=== PATIENT | male | born 1985 | race Caucasian/White ===

== ENCOUNTER → 2019-08-09 14:28 | Outpatient (CLI) | payer OTHER, SELFPAY | PROVIDERS: PCP Internal Medicine Adolescent Medicine; Visit Provider Nurse Practitioner Family | DX: R42 Dizziness and giddiness (principal); R00.2 Palpitations | CPT/HCPCS: 93225; 93226 ==

== ENCOUNTER → 2019-09-14 10:44 | Outpatient (CLI) | payer OTHER, SELFPAY ==
--- NOTE | 2019-09-14 10:55 | CA_ITS ---
APPROVED REPORT EXAM: Comprehensive 2D, Doppler, and color-flow Echocardiogram Cardiology Clinical Consultant: Ellie Rasmussen, RT(R) Ht: 5 ft 6 in Wt: 180lbs BSA: 1.91 BP: 158/89 mmHg Indications: CP, Smoker, fatigue, syncope, dizziness, ordered as a bubble study to rule out PFO Echo Enhancing Agent Indication: Rule Out Septal Defect Agent(s) / Amount(s) Used: Agitated Saline 15 cc 2D Dimensions LVOT 2.02 cm (M/F) 1.5-2.5 M-Mode Dimensions RVDd 2.38 cm (0.9-2.6) LVDd 4.59 cm (3.5-5.7) LVDs 3.29 cm (3.5-5.7) IVSd 1.01 cm (0.6-1.1) PWd 0.77 cm (0.6-1.1) EF (Teich) 54.80% FS 28.30% EDV (Teich) 96.80 mL ESV (Teich) 43.80 mL LV Diastology E/A Ratio 1.65 Mitral Valve MV A Velocity 45.00 (40-130 cm/s) Left Ventricle Left atrium is normal size, left ventricle is normal size, there is no concentric left ventricular hypertrophy, visually estimated ejection fraction 55% with no regional wall motion abnormality. Diastolic parameters are within normal range. Right Ventricle Right atrium and right ventricular normal size and contractility. Atria Intra-atrial septum is intact, there is no flow across into septum, agitated saline contrast reveals identify intracardiac shunt. Aortic Valve Aortic valve is grossly normal, there is no aortic stenosis or aortic insufficiency. Mitral Valve Mitral valve is grossly normal, there is trace mitral regurgitation. Tricuspid Valve Tricuspid valve is grossly normal, there is trace tricuspid regurgitation. Pulmonic Valve Pulmonic valve is poorly visualized. Great Vessels Aortic root is normal size. Pericardium No significant pericardial effusion noted. Conclusion 1. Normal left ventricular size, preserved left ventricular systolic function, visually estimated ejection fraction 55% with no regional wall motion abnormality, diastolic parameters are within normal range. 2. Trace mitral and tricuspid regurgitation 3. Agitated saline contrast study fails to identify intracardiac shunting. 4. No significant pericardial effusion noted. Electronically signed by : Ezra Silva, 09/15/2019 15:12:08
== END ==
PROVIDERS: PCP Internal Medicine Adolescent Medicine; Visit Provider Nurse Practitioner Family
DX: R42 Dizziness and giddiness (principal); R00.2 Palpitations
CPT/HCPCS: 93306

== ENCOUNTER 2019-09-30 09:34 | Emergency (ER) | payer OTHER, SELFPAY ==
--- NOTE | 2019-09-30 09:33 | ECG_ITS ---
APPROVED REPORT Exam: Resting ECG HR:94 bpm ECG Measurements Heart Rate 94 AXES VA 138 P 70 QRSd 90 QRS 58 QT 332 T 63 QTc 415 <Conclusion> Normal sinus rhythm Incomplete RBBB Possible Left atrial enlargement Borderline ECG Electronically signed by : Marquez Wright, 10/04/2019 08:52:35
[2019-09-30 09:35] VITALS: BP 162/42; PULSE 93; RESP 18; O2SAT 97; BMI 27.3
--- NOTE | 2019-09-30 09:39 | XR_ITS ---
PROCEDURE: XR CHEST 2V CLINICAL HISTORY: chest pain COMPARISON: CHW CT CHEST W/ CONTRAST from 02/16/2014 CXR1VP XR chest portable from 04/09/2018 CXR2V XR chest 2V from 07/02/2018 XR CHEST PORTABLE from 08/08/2019 FINDINGS: The cardiomediastinal silhouette and pulmonary vascularity are within normal limits. The lungs are clear without infiltrates, suspicious nodules, or pleural effusions. No acute bony abnormalities. IMPRESSION: No acute findings. Dictated by: Dr. Dominick Love MD 09/30/2019 10:[address] Dominick Love MD in [place] 09/30/2019 10:06
[2019-09-30 09:40] VITALS: BP 144/75; PULSE 90; RESP 18; O2SAT 96
--- NOTE | 2019-09-30 09:44 | PC.NURSE ---
PT RETURNED FROM RAD
[2019-09-30 09:49] LABS: Basophils # 0.1 K/mm3 (0-0.2); Eosinophils # 0.3 K/mm3 (0.0-0.4); Lymphocytes # 1.6 K/mm3 (0.7-4.5); Monocytes # 0.6 K/mm3 (0.1-1.0); Red Cell Distribution Width 12.4 % (11.5-17.5)
[2019-09-30 09:52] LABS: Anion Gap 8.7 mEq/L (5-15); Blood Urea Nitrogen 11 mg/dl (9-20); Calcium 9.9 mg/dl (8.4-10.2); Carbon Dioxide 30 mmol/L (22.0-30.0); Chloride 103 mmol/L (98-107); Creatinine Clearance Estimated 152 mL/min (50-200); Estimated Glomerular Filt Rate 111 ml/min (>60); GFR (African American) 135 ML/MIN (>60); Glucose 119 mg/dl (74-100); Potassium 3.7 mmoL/L (3.5-5.1); Sodium 138 mmol/L (136-145)
[2019-09-30 09:54] LABS: Basophils % 0.8 % (0.1-2.0); Hematocrit 52.5 % (42.0-52.0); Lymphocytes % 18.9 % (10-50); Mean Corpuscular HGB Conc 34.3 g/dL (31.8-35.4); Mean Corpuscular Hemoglobin 33.4 pg (27.0-31.2); Mean Corpuscular Volume 97.3 fl (80-94); Mean Platelet Volume 7.8 fl (7.4-10.4); Monocytes % 7.2 % (1.7-9.3); Neutrophils # 5.7 K/mm3 (1.8-7.8); Neutrophils % 69.2 % (37.0-80.0); Platelet Count 254 K/mm3 (142-424); Red Blood Count 5.39 M/mm3 (4.60-6.20); White Blood Count 8.3 K/mm3 (4.8-10.8)
[2019-09-30 10:06] LABS: Troponin I < 0.01 ng/ml (0.00-0.034)
[2019-09-30 10:20] VITALS: BP 127/74; PULSE 61; RESP 18; O2SAT 97
--- NOTE | 2019-09-30 10:32 | HMH.EDCP ---
ED Disposition Clinical Impression: Costalchondritis Disposition: Home Health Service Condition on Discharge: Good Instructions: DI for Atypical Chest Pain Prescriptions: Losartan Potassium 50 mg PO DAILY 30 Days #30 tab Transmission Status: Pending to [facility] # Nabumetone 750 mg PO BID 10 Days #20 tab Transmission Status: Pending to [facility] # Referrals: Provider,Referral, [Primary Care Provider] - - Critical Care Critical Care Time: No Attestation: On 09/30/19, the high probability of a clinically significant, sudden or life threatening deterioration of the following system(s) required my full and direct attention, intervention and personal management. The time I documented below is in addition to time spent performing reported procedures but includes the following listed in this critical care notation. Medical Decision Making - Medical Records Medical records reviewed: Yes: I reviewed the patient's medical records. - Sony Inquiry Pt receiving controlled substance: No Vital Signs: 09/30/19 09:35 09/30/19 09:40 09/30/19 10:20 Pulse Rate [Radial] 93 H 90 61 Respiratory Rate 18 18 18 Blood Pressure [Right Arm] 162/42 H 144/75 H 127/74 Blood Pressure Mean [Right Arm] 82 98 91 Blood Pressure Source [Right Arm] Automatic Cuff Automatic Cuff Automatic Cuff Blood Pressure Position [Right Arm] Sitting Sitting 02 Sat by Pulse Oximetry 97 96 97 Oxygen Delivery Method Room Air Room Air - Lab Data Lab results reviewed: Yes: I reviewed the patient's lab results. Lab Results 09/30/19 09:35: WBC 8.3, RBC 5.39, Hgb 18.0, Hct 52.5 H, MCV 97.3 H, MCH 33.4 H, MCHC 34.3, RDW 12.4, Plt Count 254, MPV 7.8, Neut % (Auto) 69.2, Lymph % (Auto) 18.9, [place] % (Auto) 7.2, Eos % (Auto) 4.0, Baso % (Auto) 0.8, Neut # (Auto) 5.7, Lymph # (Auto) 1.6, [place] # (Auto) 0.6, Eos # (Auto) 0.3, Baso # (Auto) 0.1 09/30/19 09:35: Sodium 138, Potassium 3.7, Chloride 103, Carbon Dioxide 30, Anion Gap 8.7, BUN 11, Creatinine 0.80, Estimated Creat Clear 152, Estimated GFR 111, Est GFR ( Amer) 135, Glucose 119 H, Calcium 9.9, Troponin I < 0.01 Result diagrams: 09/30/19 09:35 09/30/19 09:35 Orders (Tests/Meds): ORDERS Category Date Time Status Troponin I Q3H Lab 09/30/19 12:45 Ordered Troponin I Q3H Lab 09/30/19 15:45 Ordered - Radiology Data #1 Image(s): Chest Image Reviewed: Yes I have reviewed radiologist's interpretation Preliminary Findings: Normal/NAD - ECG Data Tracing #1 I reviewed this ECG and interpreted as documented below: Normal Sinus Rhythm: Yes Chest Pain HPI - General Chief Complaint: Chest Pain Stated Complaint: chest pain Time Seen by Provider: 09/30/19 10:32 Mode of Arrival: Ambulatory Source of Information: Patient Limitations: No Limitations Description of Symptoms (Recalled from ER Triage Doc. by RN): complaint of chest pain that starts in his left shoulder and radiates to the middle of his chest that started last night. - History of Present Illness MD complaint: chest pain Onset (ago): hour(s) Duration: intermittent Activity at onset: during rest Pain location: substernal Severity: moderate Severity scale (1-10): 4 Quality: sharp Pain radiation: LUE Relieving factors: nothing Exacerbating factors: nothing Associated symptoms: nausea Treatments prior to or on arrival for Cardiac Chest Pain: none - Related Data Home Medications Medication Instructions Recorded Confirmed Citalopram Hydrobromide [Celexa 40 mg PO DAILY 07/02/18 05/20/19 40mg Tablet] Previous Rx's Medication Instructions Recorded Losartan Potassium 50 mg PO DAILY 30 Days #30 tab 09/30/19 Nabumetone 750 mg PO BID 10 Days #20 tab 09/30/19 Allergies Allergy/AdvReac Type Severity Reaction Status Date / Time codeine [CODEINE] Allergy Unknown Verified 07/02/18 19:58 Penicillins [PENICILLINS] Allergy Unknown Verified 07/02/18 19:58 H
[2019-09-30 10:46] VITALS: BP 141/83; PULSE 94; RESP 20; O2SAT 98
[2019-09-30 10:58] VITALS: BP 129/76; PULSE 79; RESP 18; TEMP 36.8; O2SAT 98
== END 2019-09-30 10:58 | disposition home health service (06) ==
PROVIDERS: Emergency Provider Family Medicine; PCP Internal Medicine Adolescent Medicine
DX: M94.0 Chondrocostal junction syndrome [Tietze] (principal); F17.210 Nicotine dependence, cigarettes, uncomplicated
CPT/HCPCS: 71046; 80048; 84484; 85025; 93005; 99284

== ENCOUNTER 2020-04-11 09:36 | Emergency (ER) | payer OTHER, SELFPAY ==
[2020-04-11 09:50] VITALS: BP 150/82; PULSE 98; RESP 18; TEMP 36.8; O2SAT 99; BMI 29.0
--- NOTE | 2020-04-11 10:06 | HMH.EDUTC ---
[facility] [place] Disposition Clinical Impression: Nausea Disposition: Home, Self-Care Condition on Discharge: Good Instructions: DI for Nausea -- Adult, Ondansetron, Dicyclomine Additional Instructions: ? Avoid fruit juices, as these do not replace minerals and can actually increase diarrhea. ? Children and adults can use sports drinks to replenish electrolytes. Younger children and infants should use products formulated for children, like oral rehydration solutions. ? Eat food in small amounts and let your stomach recover. ? Get lots of rest. You may feel tired or weak. ? No greasy or fried foods for the next 24-48 hours BRAT diet Bananas Rice Apples and [place] ? Make sure to drink plenty of liquids ? Return if needed ? Straight to ER if any life threatening symptoms ? Zofran as prescribed ? You was given an outpatient order for diarrhea panel, please collect specimen and bring back to outpatient lab then call back to the [facility] or follow up with family doctor for results ? Follow up with family doctor in the next 48-72 hours if no improvement or any worsening of symptoms You was tested for today for COVID19 your test result should be back in the next 24-48 hours, you may call to the [facility] tomorrow to see if your test results are back however could take up to 48 hours before results are back [phone] [facility] hours are 9am-9pm You was given a handout with instructions for Self Quarantine and Self isolation for while you wait on test results and what to do if they are positive If you are positive the Health Dept will be contacting you also Prescriptions: Dicyclomine HCl [Bentyl 10mg capsule] 10 mg PO TID PRN #15 cap PRN Reason: Cramping Transmission Status: Pending to [facility] # Ondansetron [Zofran 4mg ODT] 4 mg PO TIDP PRN #9 tab PRN Reason: Nausea Transmission Status: Pending to [facility] # Referrals: Janak Emmanuel MD [Primary Care Provider] - As needed Forms: Work/School Release Medical Decision Making - Sony Inquiry Pt receiving controlled substance: No Sony was queried for this patient: No Vital Signs: 04/11/20 09:50 Temperature 98.2 F Temperature Source Oral Pulse Rate [Right Brachial] 98 H Respiratory Rate 18 Blood Pressure [Right Arm] 150/82 H Blood Pressure Mean [Right Arm] 104 Blood Pressure Source [Right Arm] Automatic Cuff Blood Pressure Position [Right Arm] Sitting 02 Sat by Pulse Oximetry 99 Oxygen Delivery Method Room Air Orders (Tests/Meds): ED MEDICATIONS Discontinued Medications Generic Name Dose Route Start Last Admin Trade Name Candelario PRN Reason Stop Dose Admin Dicyclomine HCl 10 mg 04/11/20 10:09 04/11/20 10:24 Dicyclomine 10mg Capsule PO 04/11/20 10:10 10 mg ONCE ONE Administration Ondansetron HCl 4 mg 04/11/20 10:09 04/11/20 10:27 Ondansetron 4mg Odt SL 04/11/20 10:10 4 mg ONCE ONE Administration Medical Decision Narrative: Patient states that he no longer takes Citalopram Patient state that after medication he is feeling much better [facility] [place] HPI - General Stated complaint: No energy Time Seen by Provider: 04/11/20 10:06 Mode of Arrival: Ambulatory Source of Information: Patient Limitations: No Limitations Description of Symptoms (Recalled from Triage Doc. 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
[2020-04-11 10:40] VITALS: BP 150/82; PULSE 98; RESP 18; TEMP 36.8; O2SAT 99
[2020-04-12 09:44] LABS: Covid-19 Nasal PCR Sendout Lex NOT DETECTED
== END 2020-04-11 10:45 | disposition home or self-care (01) ==
PROVIDERS: Emergency Provider Nurse Practitioner; PCP Internal Medicine Adolescent Medicine
DX: Z20.828 Contact with and (suspected) exposure to other viral communicable diseases (principal); R11.0 Nausea; F17.210 Nicotine dependence, cigarettes, uncomplicated
CPT/HCPCS: 99201; U0004

== ENCOUNTER 2020-04-29 12:12 | Emergency (ER) | payer OTHER, SELFPAY ==
[2020-04-29 12:21] VITALS: BP 136/78; PULSE 72; RESP 18; O2SAT 99; BMI 27.4
--- NOTE | 2020-04-29 13:30 | HMH.EDUTC ---
[facility] [place] Disposition Clinical Impression: Laceration of left index finger Qualifiers: Encounter type: initial encounter Damage to nail status: without damage Foreign body presence: without foreign body Qualified Code(s): S61.211A - Laceration without foreign body of left index finger without damage to nail, initial encounter Disposition: Home, Self-Care Condition on Discharge: Good Instructions: How to Care for a Laceration After Repair, DI for Laceration Repair -- Simple Additional Instructions: Keep the wound clean and dry. Don't be submerging it in water to wash dishes or any other activities. Keep a dressing on it if you are going to be getting it dirty. Watch the for signs of infection, such as redness, swelling, drainage, fever. etc. Take tylenol or ibuprofen for pain. Follow up with your regular doctor. Return in 7 to 10 days to have the sutures removed. GO TO THE ER FOR ANY WORSENING SYMPTOMS OR CONCERNS. Prescriptions: cephALEXin [Keflex 500mg Cap] 500 mg PO Q6H 7 Days #28 cap Transmission Status: Pending to [facility] #[id number] Referrals: PCP,No [Primary Care Provider] - Forms: Work/School Release Time of Disposition: 13:36 Medical Decision Making - Medical Records Medical records reviewed: No: I reviewed the patient's medical records. - Sony Inquiry Pt receiving controlled substance: No Vital Signs: 04/29/20 12:21 Pulse Rate [Radial] 72 Respiratory Rate 18 Blood Pressure [Right Arm] 136/78 Blood Pressure Mean [Right Arm] 97 Blood Pressure Source [Right Arm] Automatic Cuff Blood Pressure Position [Right Arm] Sitting 02 Sat by Pulse Oximetry 99 Oxygen Delivery Method Room Air Orders (Tests/Meds): ED MEDICATIONS Discontinued Medications Generic Name Dose Route Start Last Admin Trade Name Freq PRN Reason Stop Dose Admin Tetanus/Reduced Diphtheria/Acell Pertussis 0.5 ml 04/29/20 12:27 04/29/20 12:51 Tet/Diphth/Pert-Adult 0.5ml Syringe IM 04/29/20 12:28 0.5 ml .ONCE ONE Administration [facility] [place] HPI - General Stated complaint: lt hand lac AO 04/29/20 Time Seen by Provider: 04/29/20 13:30 Mode of Arrival: Ambulatory Source of Information: Patient Limitations: No Limitations Description of Symptoms (Recalled from Triage Doc. by RN): left index finger lac HEENT Symptoms (Recalled from RN notes): No Resp Symptoms (Recalled from RN notes): No Skin Symptoms (Recalled from RN notes): Yes MS Symptoms (Recalled from RN notes): No Functional Status (Recalled from RN notes): wnl - History of Present Illness Provider Complaint: He state that he was cleaning his microwave when the glass plate inside it broke and and he slipped and cut the tip of his left index finger. 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 His tetanus immunization is not up to date. - Related Data Previous Rx's Medication Instructions Recorded Dicyclomine HCl [Bentyl 10mg 10 mg PO TID PRN #15 cap 04/11/20 capsule] Ondansetron [Zofran 4mg ODT] 4 mg PO TIDP PRN #9 tab 04/11/20 cephALEXin [Keflex 500mg Cap] 500 mg PO Q6H 7 Days #28 cap 04/29/20 Allergies Allergy/AdvReac Type Severity Reaction Status Date / Time codeine [CODEINE] Allergy Unknown Verified 07/02/18 19:58 Penicillins [PENICILLINS] Allergy Unknown Verified 07/02/18 19:58 - Worker's Comp Is this a Worker's Comp case?: No [facility] History - Hepatitis A Screen Drug use history?: No High risk sexual behaviors?: No History of sexually transmitted infection?: No Currently employed?: No Childcare worker?: No Do you have indoor plumbing?: Yes Do you have electricity?: Yes Attestation statement:: This patient has been screened for Hepatitis A risk factors. I have reviewed the patient's past medical history: Yes Medical History: Reports:: Cancer Denies:: Diabetes Mellitus Type 1, Diabetes Mellitus Type 2 - Social History Smoking Status: Current every day smoker Tobacco Type: cigarettes # Pa
[2020-04-29 13:41] VITALS: BP 136/78; PULSE 72; RESP 18; TEMP 36.7; O2SAT 99
== END 2020-04-29 13:42 | disposition home or self-care (01) ==
PROVIDERS: Emergency Provider Nurse Practitioner Family
DX: S61.211A Laceration without foreign body of left index finger without damage to nail, initial encounter (principal); Z23 Encounter for immunization; F17.210 Nicotine dependence, cigarettes, uncomplicated; W25.XXXA Contact with sharp glass, initial encounter; Y92.010 Kitchen of single-family (private) house as the place of occurrence of the external cause
CPT/HCPCS: 12001; 90471; 90715; 99201

== ENCOUNTER 2020-05-08 15:51 | Emergency (ER) | payer OTHER, SELFPAY ==
[2020-05-08 16:10] VITALS: BP 113/76; PULSE 81; RESP 19; TEMP 36.8; O2SAT 99; BMI 26.9
[2020-05-08 16:14] VITALS: BP 113/76; PULSE 81; RESP 19; TEMP 36.8; O2SAT 99
== END 2020-05-08 16:15 | disposition home or self-care (01) ==
PROVIDERS: Emergency Provider Nurse Practitioner Family; PCP Internal Medicine Adolescent Medicine
DX: S61.211D Laceration without foreign body of left index finger without damage to nail, subsequent encounter (principal)

== ENCOUNTER 2020-05-10 10:45 | Emergency (ER) | payer OTHER, SELFPAY ==
[2020-05-10 10:46] VITALS: BP 147/96; PULSE 100; RESP 16; TEMP 36.6; O2SAT 97; BMI 29.0
--- NOTE | 2020-05-10 10:55 | XR_ITS ---
PROCEDURE: XR CHEST 2V Referring Doctor: Vargas Richardson Patient Age:34Y CLINICAL HISTORY: fall/soa Syncopal episode with fall patient caught self did not hit chest or ribs. COMPARISON: CT [facility] CT CHEST W/ CONTRAST from 02/16/2014 CR CXR2V XR chest 2V from 07/02/2018 CR XR CHEST PORTABLE from 08/08/2019 CR XR CHEST 2V from 09/30/2019 FINDINGS: PA and lateral chest performed and compared to 09/30/2019 Nothing definitely acute. Lungs well expanded and clear. The cardiomediastinal silhouette and pulmonary vascularity are within normal limits. The lungs are clear without infiltrates, suspicious nodules, or pleural effusions. No acute bony abnormalities. Chest wall unremarkable IMPRESSION: . stable chest; nothing the definitely acute Dictated by: Moustapha Ang MD 05/10/2020 12:44 Moustapha Ang MD in [place] 05/10/2020 12:44
--- NOTE | 2020-05-10 11:01 | ECG_ITS ---
APPROVED REPORT Exam: Resting ECG HR:84 bpm ECG Measurements Heart Rate 84 AXES NM 142 P 50 QRSd 86 QRS 84 QT 342 T 8 QTc 404 Conclusion Normal sinus rhythm Normal ECG Electronically signed by : Janak Emmanuel, 05/10/2020 19:20:40
--- NOTE | 2020-05-10 11:13 | HMH.EDFALL ---
ED Disposition Clinical Impression: Fall Qualifiers: Encounter type: initial encounter Qualified Code(s): W19.XXXA - Unspecified fall, initial encounter Disposition: Home, Self-Care Condition on Discharge: Fair Instructions: How to Prevent Falls Additional Instructions: Glad to let you know that we have checked your labs and chest x-ray as well as EKG and no acute findings are noted please follow-up as needed Referrals: Janak Emmanuel MD [Primary Care Provider] - Forms: Work/School Release Time of Disposition: 11:57 - Critical Care Critical Care Time: No Attestation: On 05/10/20, the high probability of a clinically significant, sudden or life threatening deterioration of the following system(s) required my full and direct attention, intervention and personal management. The time I documented below is in addition to time spent performing reported procedures but includes the following listed in this critical care notation. Medical Decision Making - Medical Records Medical records reviewed: Yes: I reviewed the patient's medical records. MR Comment: 34 year old male here with his mother; states he was at work when he passed out. States he knows someone caught him and helped him to the floor. Unsure how long he was out for. Denies any injuries at this time. States he did not hit his head. States he has felt soa for the past few days. He has had a recent negative covid test. Labs and they show no acute changes his vital signs are stable chest x-ray has been reviewed and it also shows no acute changes patient is being discharged home with reassurance; he requested to be off for today and will give him that - Sony Inquiry Pt receiving controlled substance: No Vital Signs: 05/10/20 10:46 05/10/20 11:17 05/10/20 11:40 Temperature 97.8 F Temperature Source Oral Pulse Rate [Left Radial] 100 H 84 84 Respiratory Rate 16 18 Blood Pressure [Right Arm] 147/96 H 162/84 H 150/75 H Blood Pressure Mean [Right Arm] 113 110 100 Blood Pressure Source [Right Arm] Automatic Cuff Automatic Cuff Automatic Cuff Blood Pressure Position [Right Arm] Sitting Sitting Sitting 02 Sat by Pulse Oximetry 97 97 99 Oxygen Delivery Method Room Air Room Air - Lab Data Lab results reviewed: Yes: I reviewed the patient's lab results. Lab Results 05/10/20 11:05: Sodium 138, Potassium 3.8, Chloride 101, Carbon Dioxide 29, Anion Gap 11.8, BUN 14, Creatinine 1.00, Estimated Creat Clear 121, Estimated GFR 86, Est GFR ( Amer) 104, Glucose 120 H, Calcium 9.4 Result diagrams: 05/10/20 11:05 Orders (Tests/Meds): ED MEDICATIONS Generic Name Dose Route Start Last Admin Trade Name Freq PRN Reason Stop Dose Admin Sodium Chloride 1,000 mls @ 999 mls/hr 05/10/20 11:00 05/10/20 11:09 Sod Chlor 0.9% 1000ml Bag IV 05/10/20 12:00 999 mls/hr .Q1H1M DOROTHY Administration ORDERS Category Date Time Status XR chest 2V Stat Exams 05/10/20 10:55 Taken Complete Blood Count Auto Diff Stat Lab 05/10/20 11:05 Received - Radiology Data #1 Image(s): Chest Image Reviewed: Yes I reviewed the patient's radiology image Preliminary Findings: Normal/NAD Fall HPI - General Chief Complaint: Fall Stated Complaint: weakness, passed out, soa Time Seen by Provider: 05/10/20 11:10 Mode of Arrival: Ambulatory Source of Information: Patient, Parent(s) Limitations: No Limitations Description of Symptoms (Recalled from ER Triage Doc. by RN): pt states he was at work when he passed out. States he knows someone caught him and helped him to the floor. Unsure how long he was out for. Denies any injuries at this time. States he has felt soa for the past few days. - History of Present Illness HPI Narrative: 34 year old male here with his mother; states he was at work when he passed out. States he knows someone caught him and helped him to the floor. Unsure how long he was out for. Denies any injuries at this time.
[2020-05-10 11:15] LABS: Basophils % 0.6 % (0.1-2.0); Eosinophils # 0.2 K/mm3 (0.0-0.4); Eosinophils % 2.8 % (0.1-12.0); Hematocrit 54.2 % (42.0-52.0); Lymphocytes # 1.3 K/mm3 (0.7-4.5); Lymphocytes % 18.2 % (10-50); Mean Corpuscular HGB Conc 33.9 g/dL (31.8-35.4); Mean Corpuscular Hemoglobin 32.7 pg (27.0-31.2); Mean Corpuscular Volume 96.6 fl (80-94); Mean Platelet Volume 7.8 fl (7.4-10.4); Monocytes # 0.4 K/mm3 (0.1-1.0); Monocytes % 5.4 % (1.7-9.3); Neutrophils # 5.3 K/mm3 (1.8-7.8); Platelet Count 231 K/mm3 (142-424); Red Blood Count 5.61 M/mm3 (4.60-6.20); Red Cell Distribution Width 12.9 % (11.5-17.5); White Blood Count 7.3 K/mm3 (4.8-10.8)
[2020-05-10 11:17] VITALS: BP 162/84; PULSE 84; O2SAT 97
--- NOTE | 2020-05-10 11:30 | PC.NURSE ---
Pt returned from rad
[2020-05-10 11:32] LABS: Anion Gap 11.8 mEq/L (5-15); Blood Urea Nitrogen 14 mg/dl (9-20); Calcium 9.4 mg/dl (8.4-10.2); Carbon Dioxide 29 mmol/L (22.0-30.0); Chloride 101 mmol/L (98-107); Creatinine Clearance Estimated 121 mL/min (50-200); Estimated Glomerular Filt Rate 86 ml/min (>60); GFR (African American) 104 ML/MIN (>60); Glucose 120 mg/dl (74-100); Potassium 3.8 mmoL/L (3.5-5.1); Sodium 138 mmol/L (136-145)
[2020-05-10 11:40] VITALS: BP 150/75; PULSE 84; RESP 18; O2SAT 99
[2020-05-10 12:01] VITALS: BP 176/82; PULSE 84; RESP 16; O2SAT 98
[2020-05-10 12:02] VITALS: BP 168/70; PULSE 84; RESP 16; TEMP 37; O2SAT 98
[2020-05-10 12:05] LABS: Hemoglobin 18.3 g/dL (14.1-18.0)
== END 2020-05-10 12:06 | disposition home or self-care (01) ==
PROVIDERS: Emergency Provider Emergency Medicine; PCP Internal Medicine Adolescent Medicine
DX: R55 Syncope and collapse (principal); R53.1 Weakness; F17.210 Nicotine dependence, cigarettes, uncomplicated; Z88.0 Allergy status to penicillin; Z88.5 Allergy status to narcotic agent
CPT/HCPCS: 71046; 80048; 85025; 93005; 99283

== ENCOUNTER 2020-05-12 23:20 | Emergency (ER) | payer OTHER, SELFPAY ==
[2020-05-12 23:18] VITALS: BP 152/93; PULSE 92; RESP 12; TEMP 36.8; O2SAT 96; BMI 26.6
--- NOTE | 2020-05-12 23:24 | HMH.EDGENADL ---
ED Disposition Clinical Impression: Anxiety reaction Disposition: Home, Self-Care Condition on Discharge: Good Additional Instructions: You were seen on an emergency basis. It is very important that you follow up with your primary care provider and/or specialist as we discussed within 2 days. All labs and imaging were obtained and interpreted here to rule out life threatening emergencies, but your final results should be reviewed by your primary doctor at your follow up appointment. Please return to the emergency department if any of your symptoms worsen, or if they do not improve as we discussed. Referrals: PCP,No [Primary Care Provider] - Janak Emmanuel MD [Staff Physician] - - Critical Care Critical Care Time: No Attestation: On 05/12/20, the high probability of a clinically significant, sudden or life threatening deterioration of the following system(s) required my full and direct attention, intervention and personal management. The time I documented below is in addition to time spent performing reported procedures but includes the following listed in this critical care notation. Medical Decision Making - Medical Records Medical records reviewed: Yes: I reviewed the patient's medical records. - Sony Inquiry Pt receiving controlled substance: No Vital Signs: 05/12/20 23:18 Temperature 98.2 F Temperature Source Oral Pulse Rate [Right Brachial] 92 H Respiratory Rate 12 Blood Pressure [RIGHT] 152/93 H Blood Pressure Mean [RIGHT] 112 Blood Pressure Source [RIGHT] Automatic Cuff Blood Pressure Position [RIGHT] Sitting 02 Sat by Pulse Oximetry 96 Oxygen Delivery Method Room Air Orders (Tests/Meds): ED MEDICATIONS Discontinued Medications Generic Name Dose Route Start Last Admin Trade Name Freq PRN Reason Stop Dose Admin Lorazepam 1 mg 05/12/20 23:25 05/13/20 00:16 Lorazepam 1mg Tablet PO 05/12/20 23:26 1 mg ONCE ONE Administration Medical Decision Narrative: 34-year-old male with a history of anxiety presenting with an acute anxiety reaction. No SI or HI. Nontoxic, afebrile, hemodynamically stable. PERC negative. No chest pain. Asymptomatic after 1 mg of oral Ativan. Requesting to go home. No further work-up indicated. General Adult HPI - General Chief complaint: Dizziness Stated complaint: DIZZINESS Time Seen by Provider: 05/12/20 23:24 - History of Present Illness HPI narrative: This is a 34-year-old male with a history of anxiety noncompliant with citalopram presenting with a 1 day history of what he describes to be anxiety and feelings of stress. No fever, chills, nausea, vomiting, cough, shortness of breath, chest pain. No suicidal ideation or homicidal ideation. Patient seen here recently for similar symptoms and was told to resume escitalopram but patient remains noncompliant. - Related Data Previous Rx's Medication Instructions Recorded Dicyclomine HCl [Bentyl 10mg 10 mg PO TID PRN #15 cap 04/11/20 capsule] Ondansetron [Zofran 4mg ODT] 4 mg PO TIDP PRN #9 tab 04/11/20 cephALEXin [Keflex 500mg Cap] 500 mg PO Q6H 7 Days #28 cap 04/29/20 Allergies Allergy/AdvReac Type Severity Reaction Status Date / Time codeine [CODEINE] Allergy Unknown Verified 07/02/18 19:58 Penicillins [PENICILLINS] Allergy Unknown Verified 07/02/18 19:58 [facility] History - Hepatitis A Screen Attestation statement:: This patient has been screened for Hepatitis A risk factors. I have reviewed the patient's past medical history: Yes Medical History: Reports:: Cancer Denies:: Diabetes Mellitus Type 1, Diabetes Mellitus Type 2 - Social History Smoking Status: Current every day smoker Tobacco Type: cigarettes # Packs/Day (cigarettes): 1 Alcohol Intake: never Occupational Status: employed ROS Obtained: Yes All systems reviewed & no additional complaints Physical Exam General: well developed, well hydrated, no acute distress Head: Normocephalic, atrauma
[2020-05-13 00:47] VITALS: BP 143/93; PULSE 78; RESP 20; TEMP 36.6; O2SAT 97
== END 2020-05-13 00:48 | disposition home or self-care (01) ==
PROVIDERS: Emergency Provider Physician Assistant
DX: F41.1 Generalized anxiety disorder (principal); F17.210 Nicotine dependence, cigarettes, uncomplicated; Z88.0 Allergy status to penicillin; Z88.5 Allergy status to narcotic agent
CPT/HCPCS: 99281

== ENCOUNTER 2020-08-19 16:13 | Emergency (ER) | payer OTHER, SELFPAY ==
[2020-08-19 16:11] VITALS: BP 140/88; PULSE 102; RESP 16; TEMP 36.9; O2SAT 96; BMI 25.8
[2020-08-19 16:15] VITALS: BP 139/86; PULSE 89; RESP 20; O2SAT 98
--- NOTE | 2020-08-19 16:15 | ECG_ITS ---
APPROVED REPORT Exam: Resting ECG HR:91 bpm ECG Measurements Heart Rate 91 AXES MA 146 P 53 QRSd 84 QRS 16 QT 336 T 43 QTc 413 Conclusion Normal sinus rhythm Possible Left atrial enlargement Borderline ECG Electronically signed by : Janak Emmanuel, 08/20/2020 06:34:17
--- NOTE | 2020-08-19 16:15 | XR_ITS ---
PROCEDURE: XR CHEST PORTABLE CLINICAL HISTORY: ? SYNCOPAL EPISODE COMPARISON: CT CHW CT CHEST W/ CONTRAST from 02/16/2014 CR XR CHEST PORTABLE from 08/08/2019 CR XR CHEST 2V from 09/30/2019 CR XR CHEST 2V from 05/10/2020 FINDINGS: The cardiomediastinal silhouette and pulmonary vascularity are within normal limits. The lungs are clear without infiltrates, suspicious nodules, or pleural effusions. No acute bony abnormalities. IMPRESSION: No acute findings. Dictated by: Macario Lui MD 08/20/2020 05:44 Macario Lui MD in [place] 08/20/2020 05:44
[2020-08-19 16:17] VITALS: BP 140/88; BP 150/70; PULSE 102; PULSE 104
[2020-08-19 16:26] LABS: Basophils # 0.1 K/mm3 (0-0.2); Basophils % 0.4 % (0.1-2.0); Eosinophils # 0.2 K/mm3 (0.0-0.4); Eosinophils % 1.5 % (0.1-12.0); Hematocrit 53.5 % (42.0-52.0); Lymphocytes # 1.1 K/mm3 (0.7-4.5); Mean Corpuscular HGB Conc 33.7 g/dL (31.8-35.4); Mean Corpuscular Volume 94.9 fl (80-94); Monocytes # 0.5 K/mm3 (0.1-1.0); Monocytes % 3.5 % (1.7-9.3); Neutrophils # 12.2 K/mm3 (1.8-7.8); Neutrophils % 86.7 % (37.0-80.0); Platelet Count 300 K/mm3 (142-424); Red Blood Count 5.63 M/mm3 (4.60-6.20); Red Cell Distribution Width 12.7 % (11.5-17.5); White Blood Count 14.1 K/mm3 (4.8-10.8)
--- NOTE | 2020-08-19 16:26 | HMH.EDGENADL ---
ED Disposition Clinical Impression: Syncope Qualifiers: Syncope type: unspecified Qualified Code(s): R55 - Syncope and collapse Disposition: Home, Self-Care Condition on Discharge: Good Referrals: PCP,No [Non-Staff] - Time of Disposition: 18:46 - Critical Care Critical Care Time: No Attestation: On 08/19/20, the high probability of a clinically significant, sudden or life threatening deterioration of the following system(s) required my full and direct attention, intervention and personal management. The time I documented below is in addition to time spent performing reported procedures but includes the following listed in this critical care notation. Medical Decision Making - Medical Records Medical records reviewed: Yes: I reviewed the patient's medical records. - Sony Inquiry Pt receiving controlled substance: No Vital Signs: 08/19/20 16:11 08/19/20 16:15 08/19/20 16:17 Temperature 98.5 F Temperature Source Oral Pulse Rate 89 Pulse Rate [Orthostatic Lying] 102 H Pulse Rate [Orthostatic Standing] 104 H Pulse Rate [Radial] 102 H Respiratory Rate 16 20 Blood Pressure 139/86 Blood Pressure [Orthostatic Lying] 150/70 H Blood Pressure [Orthostatic Standing] 140/88 Blood Pressure [Right Arm] 140/88 Blood Pressure Mean [Right Arm] 105 Blood Pressure Position [Right Arm] Sitting 02 Sat by Pulse Oximetry 96 98 Oxygen Delivery Method Room Air 08/19/20 17:00 Temperature Temperature Source Pulse Rate 94 H Pulse Rate [Orthostatic Lying] Pulse Rate [Orthostatic Standing] Pulse Rate [Radial] Respiratory Rate 18 Blood Pressure 130/84 Blood Pressure [Orthostatic Lying] Blood Pressure [Orthostatic Standing] Blood Pressure [Right Arm] Blood Pressure Mean [Right Arm] Blood Pressure Position [Right Arm] 02 Sat by Pulse Oximetry 97 Oxygen Delivery Method - Lab Data Lab results reviewed: Yes: I reviewed the patient's lab results. Lab Results 08/19/20 16:00: WBC 14.1 H, RBC 5.63, Hgb 18.0, Hct 53.5 H, MCV 94.9 H, MCH 32.0 H, MCHC 33.7, RDW 12.7, Plt Count 300, MPV 9.0, Neut % (Auto) 86.7 H, Lymph % (Auto) 8.0 L, [place] % (Auto) 3.5, Eos % (Auto) 1.5, Baso % (Auto) 0.4, Neut # (Auto) 12.2 H, Lymph # (Auto) 1.1, [place] # (Auto) 0.5, Eos # (Auto) 0.2, Baso # (Auto) 0.1, Total Counted 100, Neutrophils % (Manual) 76, Lymphocytes % (Manual) 17, Monocytes % (Manual) 4, Eosinophils % (Manual) 3, Platelet Estimate Normal, RBC Morphology Normal 08/19/20 16:00: Sodium 140, Potassium 4.2, Chloride 104, Carbon Dioxide 28, Anion Gap 12.2, BUN 15, Creatinine 1.00, Estimated Creat Clear 108, Estimated GFR 86, Est GFR ( Amer) 104, Glucose 111 H, Calcium 9.7, Total Bilirubin 0.7, AST 22, ALT 15, Alkaline Phosphatase 94, Troponin I < 0.01, Total Protein 7.8, Albumin 5.1 H, Globulin 2.7, Albumin/Globulin Ratio 1.9 H 08/19/20 16:41: Urine Color Yellow, Urine Appearance Clear, Urine pH 7.0, Ur Specific [place] 1.020, Urine Protein Negative, Urine Glucose (UA) Negative, Urine Ketones Negative, Urine Blood Negative, Urine Nitrate Negative, Urine Bilirubin Negative, Urine Urobilinogen 0.2, Ur Leukocyte Esterase Negative, Urine RBC None, Urine WBC None, Ur Squamous Epith Cells None, Urine Bacteria None 08/19/20 16:41: Urine Opiates Screen Negative, Urine Methadone Screen Negative, Ur Barbituates Screen Negative, Ur Phencyclidine Scrn Negative, Ur Amphetamines Screen Negative, U Benzodiazepines Scrn Negative, Urine Cocaine Screen Negative, U Marijuana (THC) Screen Negative Result diagrams: 08/19/20 16:00 08/19/20 16:00 Orders (Tests/Meds): ED MEDICATIONS Generic Name Dose Route Start Last Admin Trade Name Freq PRN Reason Stop Dose Admin Sodium Chloride 1,000 mls @ 999 mls/hr 08/19/20 16:45 08/19/20 17:20 Sod Chlor 0.9% 1000ml Bag IV 08/19/20 17:45 999 mls/hr .Q1H1M DOROTHY Administration ORDERS Category Date Time Status CT head/brain wo con Stat Cat Scan 08/19/20 16:27 Taken
--- NOTE | 2020-08-19 16:27 | CT_ITS ---
PROCEDURE: CT HEAD/BRAIN WO CON CLINICAL INDICATION: near-syncope COMPARISON: No exams were available for comparison TECHNIQUE: Axial images obtained. All CT scans at the facility use one or more dose reduction, viz: automated exposure control, ma/kV adjustment per patient size (including targeted exams where dose is matched to indication, i.e. head), or iterative reconstruction technique. FINDINGS: No midline shift, mass effect, intracranial hemorrhage, hydrocephalus, or extra-axial fluid collection is evident. The calvarium has an unremarkable appearance. No mastoid effusion. Opacified right maxillary sinus with an air-fluid level. Mild mucosal thickening of ethmoid sinuses. IMPRESSION: No acute intracranial findings. Right maxillary sinus disease Dictated by: Macario Lui MD 08/20/2020 06:14 Macario Lui MD in [facility] 08/20/2020 06:14
[2020-08-19 16:30] LABS: Chloride 104 mmol/L (98-107); MANUAL DIFFERENTIAL MANUAL DIFFERENTIAL (MANUAL DIFF); Potassium 4.2 mmoL/L (3.5-5.1); Sodium 140 mmol/L (136-145)
[2020-08-19 16:33] LABS: Alanine Aminotransferase 15 U/L (12-78); Albumin Level 5.1 g/dl (3.5-5.0); Albumin/Globulin Ratio 1.9 (1.1-1.8); Alkaline Phosphatase 94 U/L (38-126); Anion Gap 12.2 mEq/L (5-15); Aspartate Amino Transferase 22 U/L (17-59); Bilirubin,Total 0.7 mg/dl (0.2-1.3); Blood Urea Nitrogen 15 mg/dl (9-20); Carbon Dioxide 28 mmol/L (22.0-30.0); Creatinine Clearance Estimated 108 mL/min (50-200); Estimated Glomerular Filt Rate 86 ml/min (>60); GFR (African American) 104 ML/MIN (>60); Globulin 2.7 g/dL (1.3-3.2); Total Protein,Serum 7.8 g/dl (6.3-8.2)
[2020-08-19 16:34] LABS: Calcium 9.7 mg/dl (8.4-10.2); Glucose 111 mg/dl (74-100)
[2020-08-19 16:40] LABS: Eosinophils % 3 % (0-3); Lymphocytes % 17 % (10-50); Monocytes % 4 % (2-9); Neutrophils % 76 % (42-76); Platelet Estimate Normal; RBC Morphology Normal; Total Cells Counted 100
[2020-08-19 16:51] LABS: Microscopic, Urine URINE MICROSCOPIC (MICROSCOPIC)
[2020-08-19 16:52] LABS: Appearance,Urine CLEAR (Clear); Bilirubin,Urine Negative (Negative); Blood, Urine Negative (Negative); Color,Urine YELLOW (Yellow); Glucose,Urine (UA) Negative (Negative); Ketones,Urine Negative (Negative); Leukocyte Esterase,Urine Negative (Negative); Nitrate,Urine Negative (Negative); Protein,Urine Negative (Negative); Urobilinogen,Urine 0.2 EU/dl (0.2)
[2020-08-19 16:55] LABS: Troponin I < 0.01 ng/ml (0.00-0.034)
[2020-08-19 17:00] VITALS: BP 130/84; PULSE 94; RESP 18; O2SAT 97
[2020-08-19 17:03] LABS: Barbiturates Screen,Urine Negative ng/ml (<200)
[2020-08-19 17:04] LABS: Benzodiazepines Screen,Urine Negative ng/ml (<200)
[2020-08-19 17:05] LABS: Amphetamine/Metha Screen,Urine Negative ng/ml (<1000); Cannabinoid Screen,Urine Negative ng/ml (<50)
[2020-08-19 17:06] LABS: Cocaine Screen,Urine Negative ng/ml (<300)
[2020-08-19 17:07] LABS: Methadone Screen,Urine Negative ng/ml (<300); Opiate Screen,Urine Negative ng/ml (<300)
[2020-08-19 17:08] LABS: Phencyclidine Screen,Urine Negative ng/ml (<25)
[2020-08-19 18:54] VITALS: BP 122/65; PULSE 78; RESP 18; TEMP 36.6; O2SAT 98
== END 2020-08-19 18:55 | disposition home or self-care (01) ==
PROVIDERS: Emergency Provider Family Medicine; PCP Internal Medicine Adolescent Medicine
DX: R55 Syncope and collapse (principal); F17.210 Nicotine dependence, cigarettes, uncomplicated; Z88.0 Allergy status to penicillin
CPT/HCPCS: 70450; 71045; 80053; 80305; 81001; 84484; 85007; 85025; 93005; 99283

== ENCOUNTER 2020-10-17 22:12 | Emergency (ER) | payer OTHER, SELFPAY ==
--- NOTE | 2020-10-17 22:10 | ECG_ITS ---
APPROVED REPORT Exam: Resting ECG HR:77 bpm ECG Measurements Heart Rate 77 AXES AL 144 P 63 QRSd 86 QRS 52 QT 350 T 63 QTc 396 Conclusion Normal sinus rhythm Normal ECG Electronically signed by : Janak Emmanuel, 10/20/2020 11:01:36
[2020-10-17 22:13] VITALS: BP 148/86; PULSE 84; RESP 19; TEMP 36.8; O2SAT 98; BMI 29.0
[2020-10-17 22:24] VITALS: BMI 29.0
--- NOTE | 2020-10-17 22:24 | XR_ITS ---
PROCEDURE INFORMATION: Exam: XR Chest Exam date and time: 10/17/2020 10:24 PM Age: 35 years old Clinical indication: Chest pressure; Patient HX: Chest pain; Additional info: Cp TECHNIQUE: Imaging protocol: XR of the chest. Views: 1 view. Total images: 1 COMPARISON: CR XR CHEST PORTABLE 08/19/2020 4:22 PM FINDINGS: Lungs: Unremarkable. No consolidation. Pleural spaces: Unremarkable. No pleural effusion. No pneumothorax. Heart/Mediastinum: Unremarkable. No cardiomegaly. Bones/joints: Unremarkable. IMPRESSION: No acute findings.
[2020-10-17 22:30] VITALS: BP 128/71; PULSE 89; RESP 22; O2SAT 96
[2020-10-17 22:33] LABS: Basophils # 0.1 K/mm3 (0-0.2); Basophils % 0.6 % (0.1-2.0); Chloride 105 mmol/L (98-107); Eosinophils # 0.3 K/mm3 (0.0-0.4); Eosinophils % 2.8 % (0.1-12.0); Hematocrit 52.4 % (42.0-52.0); Hemoglobin 17.6 g/dL (14.1-18.0); Lymphocytes # 2.3 K/mm3 (0.7-4.5); Lymphocytes % 23.9 % (10-50); Mean Corpuscular HGB Conc 33.5 g/dL (31.8-35.4); Mean Corpuscular Volume 95.4 fl (80-94); Mean Platelet Volume 7.9 fl (7.4-10.4); Monocytes # 0.5 K/mm3 (0.1-1.0); Monocytes % 5.5 % (1.7-9.3); Neutrophils # 6.4 K/mm3 (1.8-7.8); Neutrophils % 67.3 % (37.0-80.0); Platelet Count 277 K/mm3 (142-424); Potassium 4.2 mmoL/L (3.5-5.1); Red Blood Count 5.49 M/mm3 (4.60-6.20); Red Cell Distribution Width 12.8 % (11.5-17.5); Sodium 139 mmol/L (136-145); White Blood Count 9.4 K/mm3 (4.8-10.8)
[2020-10-17 22:35] LABS: Blood Urea Nitrogen 9 mg/dl (9-20); Creatinine Clearance Estimated 150 mL/min (50-200); Estimated Glomerular Filt Rate 111 ml/min (>60); GFR (African American) 134 ML/MIN (>60)
[2020-10-17 22:36] LABS: Alanine Aminotransferase 12 U/L (12-78); Albumin Level 4.6 g/dl (3.5-5.0); Albumin/Globulin Ratio 1.7 (1.1-1.8); Alkaline Phosphatase 87 U/L (38-126); Anion Gap 10.2 mEq/L (5-15); Aspartate Amino Transferase 21 U/L (17-59); Carbon Dioxide 28 mmol/L (22.0-30.0); Globulin 2.7 g/dL (1.3-3.2); Total Protein,Serum 7.3 g/dl (6.3-8.2)
[2020-10-17 22:37] LABS: Calcium 8.8 mg/dl (8.4-10.2); Glucose 129 mg/dl (74-100)
[2020-10-17 22:42] LABS: C-Reactive Protein 0.9 mg/L (0-4)
--- NOTE | 2020-10-17 22:53 | HMH.EDCP ---
ED Disposition Clinical Impression: Atypical chest pain Disposition: Home, Self-Care Condition on Discharge: Good Instructions: DI for Atypical Chest Pain Additional Instructions: see pcp and card for luis manuel lloyd Referrals: Janak Emmanuel MD [Primary Care Provider] - Binh Degroot MD [Staff Physician] - - Critical Care Critical Care Time: No Attestation: On 10/17/20, the high probability of a clinically significant, sudden or life threatening deterioration of the following system(s) required my full and direct attention, intervention and personal management. The time I documented below is in addition to time spent performing reported procedures but includes the following listed in this critical care notation. Medical Decision Making - Medical Records Medical records reviewed: Yes: I reviewed the patient's medical records. - Sony Inquiry Pt receiving controlled substance: No Vital Signs: 10/17/20 22:13 10/17/20 22:30 10/17/20 23:00 Temperature 98.2 F Temperature Source Oral Pulse Rate 89 82 Pulse Rate [Right] 84 Respiratory Rate 19 22 24 Blood Pressure 128/71 116/70 Blood Pressure [Right Arm] 148/86 H Blood Pressure Mean [Right Arm] 106 Blood Pressure Source [Right Arm] Automatic Cuff 02 Sat by Pulse Oximetry 98 96 97 Oxygen Delivery Method Room Air - Lab Data Lab results reviewed: Yes: I reviewed the patient's lab results. Lab Results 10/17/20 22:20: WBC 9.4, RBC 5.49, Hgb 17.6, Hct 52.4 H, MCV 95.4 H, MCH 32.0 H, MCHC 33.5, RDW 12.8, Plt Count 277, MPV 7.9, Neut % (Auto) 67.3, Lymph % (Auto) 23.9, [place] % (Auto) 5.5, Eos % (Auto) 2.8, Baso % (Auto) 0.6, Neut # (Auto) 6.4, Lymph # (Auto) 2.3, [place] # (Auto) 0.5, Eos # (Auto) 0.3, Baso # (Auto) 0.1, ESR 1 10/17/20 22:20: Sodium 139, Potassium 4.2, Chloride 105, Carbon Dioxide 28, Anion Gap 10.2, BUN 9, Creatinine 0.80, Estimated Creat Clear 150, Estimated GFR 111, Est GFR ( Amer) 134, Glucose 129 H, Calcium 8.8, Total Bilirubin 1.0, AST 21, ALT 12, Alkaline Phosphatase 87, Troponin I < 0.01, C-Reactive Protein 0.9, Total Protein 7.3, Albumin 4.6, Globulin 2.7, Albumin/Globulin Ratio 1.7, Procalcitonin 0.030 Result diagrams: 10/17/20 22:20 10/17/20 22:20 Orders (Tests/Meds): ED MEDICATIONS Generic Name Dose Route Start Last Admin Trade Name Freq PRN Reason Stop Dose Admin Sodium Chloride 1,000 mls @ 999 mls/hr 10/17/20 22:30 10/17/20 22:29 Sod Chlor 0.9% 1000ml Bag IV 10/17/20 23:30 999 mls/hr .Q1H1M DOROTHY Administration Nitroglycerin 0.4 mg 10/17/20 22:25 10/17/20 22:26 Nitroglycerin 0.4mg Sl Tablet SL 11/16/20 22:24 0.4 mg Q5MINP PRN Administration Chest Pain Discontinued Medications Generic Name Dose Route Start Last Admin Trade Name Freq PRN Reason Stop Dose Admin Aspirin 324 mg 10/17/20 22:25 10/17/20 22:26 Aspirin 81mg Chewable Tablet PO 10/17/20 22:26 324 mg ONCE ONE Administration Nitroglycerin 1 gm 10/17/20 22:28 10/17/20 22:29 Nitroglycerin 1 Gm Ointment TD 10/17/20 22:29 1 gm ONCE ONE Administration ORDERS Category Date Time Status Troponin I Q3H Lab 10/18/20 01:30 Ordered Troponin I Q3H Lab 10/18/20 04:30 Ordered - Radiology Data #1 Image(s): Chest Image Reviewed: Yes I reviewed the patient's radiology image Preliminary Findings: Normal/NAD - ECG Data Tracing #1 Normal Sinus Rhythm: Yes Ischemic changes: non-specific ST-T wave changes Chest Pain HPI - General Chief Complaint: Chest Pain Stated Complaint: Chest Pain Time Seen by Provider: 10/17/20 22:20 Mode of Arrival: Family Vehicle Source of Information: Patient, Medical Record Limitations: No Limitations Description of Symptoms (Recalled from ER Triage Doc. by RN): Pt c/o midsternal chest pain that began this am and has been intermittent. Pt denies that it radiates to back, neck, or arm. Pt also denies any N/V/D, headache, or SOA. Pt reports that the pain
[2020-10-17 23:00] VITALS: BP 116/70; PULSE 82; RESP 24; O2SAT 97
[2020-10-17 23:11] LABS: Troponin I < 0.01 ng/ml (0.00-0.034)
[2020-10-17 23:17] LABS: Erythrocyte Sedimentation Rate 1 mm/hr (0-15)
[2020-10-17 23:23] VITALS: BP 125/83; PULSE 79; RESP 20; O2SAT 98
[2020-10-17 23:24] VITALS: BP 125/83; PULSE 82; RESP 18; TEMP 36.7; O2SAT 98
== END 2020-10-17 23:30 | disposition home or self-care (01) ==
PROVIDERS: Emergency Provider Emergency Medicine; PCP Internal Medicine Adolescent Medicine
DX: R07.89 Other chest pain (principal); I10 Essential (primary) hypertension; Z88.0 Allergy status to penicillin; Z88.5 Allergy status to narcotic agent
CPT/HCPCS: 71045; 80053; 84145; 84484; 85025; 85651; 86140; 93005; 96365; 99282

== ENCOUNTER 2020-12-03 21:22 | Emergency (ER) | payer OTHER, SELFPAY ==
[2020-12-03 21:17] VITALS: BP 162/91; PULSE 96; RESP 16; TEMP 36.7; O2SAT 98; BMI 29.0
--- NOTE | 2020-12-03 22:07 | HMH.EDANX ---
ED Disposition Clinical Impression: Acute anxiety Disposition: Home, Self-Care Condition on Discharge: Good Instructions: Anxiety Disorders Additional Instructions: see pcp for follow up Referrals: Provider,Referral, [Primary Care Provider] - - Critical Care Critical Care Time: No Attestation: On 12/03/20, the high probability of a clinically significant, sudden or life threatening deterioration of the following system(s) required my full and direct attention, intervention and personal management. The time I documented below is in addition to time spent performing reported procedures but includes the following listed in this critical care notation. Medical Decision Making - Medical Records Medical records reviewed: Yes: I reviewed the patient's medical records. - Sony Inquiry Pt receiving controlled substance: No Vital Signs: 12/03/20 21:17 Temperature 98.1 F Temperature Source Oral Pulse Rate [Right] 96 H Respiratory Rate 16 Blood Pressure [Right Arm] 162/91 H Blood Pressure Mean [Right Arm] 114 02 Sat by Pulse Oximetry 98 - Lab Data Lab results reviewed: Yes: I reviewed the patient's lab results. Lab Results 12/03/20 21:52: WBC 9.9, RBC 5.60, Hgb 17.8, Hct 53.7 H, MCV 95.9 H, MCH 31.8 H, MCHC 33.2, RDW 12.4, Plt Count 237, MPV 7.8, Neut % (Auto) 74.1, Lymph % (Auto) 16.3, [place] % (Auto) 7.7, Eos % (Auto) 1.4, Baso % (Auto) 0.5, Neut # (Auto) 7.4, Lymph # (Auto) 1.6, [place] # (Auto) 0.8, Eos # (Auto) 0.1, Baso # (Auto) 0.1 12/03/20 21:52: Sodium 140, Potassium 4.0, Chloride 104, Carbon Dioxide 30, Anion Gap 10.0, BUN 11, Creatinine 0.90, Estimated Creat Clear 134, Estimated GFR 97, Est GFR ( Amer) 117, Glucose 100, Calcium 8.8, Total Bilirubin 1.2, AST 22, ALT 16, Alkaline Phosphatase 77, C-Reactive Protein 0.5, Total Protein 7.1, Albumin 4.5, Globulin 2.6, Albumin/Globulin Ratio 1.7 12/03/20 22:05: Urine Color Dk yellow, Urine Appearance Clear, Urine pH 6.0, Ur Specific [place] >= 1.030, Urine Protein Negative, Urine Glucose (UA) Negative, Urine Ketones Negative, Urine Blood Negative, Urine Nitrate Negative, Urine Bilirubin Negative, Urine Urobilinogen 0.2, Ur Leukocyte Esterase Negative 12/03/20 22:05: Ur Barbituates Screen Negative, Ur Amphetamines Screen Negative, U Benzodiazepines Scrn Negative Result diagrams: 12/03/20 21:52 12/03/20 21:52 Orders (Tests/Meds): ED MEDICATIONS Generic Name Dose Route Start Last Admin Trade Name Freq PRN Reason Stop Dose Admin Sodium Chloride 1,000 mls @ 999 mls/hr 12/03/20 21:45 12/03/20 21:45 Sod Chlor 0.9% 1000ml Bag IV 12/03/20 22:45 999 mls/hr .Q1H1M DOROTHY Administration ORDERS Category Date Time Status C-Reactive Protein Stat Lab 12/03/20 21:52 Results Complete Blood Count Auto Diff Stat Lab 12/03/20 21:52 Results Comprehensive Metabolic Panel Stat Lab 12/03/20 21:52 Results Erythrocyte Sedimentation Rate Stat Lab 12/03/20 21:52 Results Procalcitonin Stat Lab 12/03/20 21:52 Results UDS [Drug Screen,Urine] Stat Lab 12/03/20 22:05 Results Urinalysis and Microscopic Stat Lab 12/03/20 22:05 Results Medical Decision Narrative: stable exam and labs will ask pt to call pcp Anxiety HPI - General Chief Complaint: Anxiety Stated Complaint: anxiety Time Seen by Provider: 12/03/20 21:35 Mode of Arrival: EMS Source of Information: Patient, EMS, Medical Record Limitations: No Limitations Description of Symptoms (Recalled from ER Triage Doc. by RN): pt arrival via EMS. pt states he has anxiety and feels off and in another world x 2-3 days but got worse tonight - History of Present Illness HPI narrative: over the last week episodes of feeling odd- thinks maybe related to emotional stress - no fever/rash/trauma /no focal neuro sx - denied etoh or drug use - no hallucinations or delusions and no self - harm thoughts MD complaint: anxiety Onset (ago): day(s) Severity: moderate Quality: intermittent Place: home
[2020-12-03 22:13] LABS: Basophils # 0.1 K/mm3 (0-0.2); Basophils % 0.5 % (0.1-2.0); Eosinophils # 0.1 K/mm3 (0.0-0.4); Eosinophils % 1.4 % (0.1-12.0); Hematocrit 53.7 % (42.0-52.0); Hemoglobin 17.8 g/dL (14.1-18.0); Lymphocytes # 1.6 K/mm3 (0.7-4.5); Lymphocytes % 16.3 % (10-50); Mean Corpuscular HGB Conc 33.2 g/dL (31.8-35.4); Mean Corpuscular Hemoglobin 31.8 pg (27.0-31.2); Mean Corpuscular Volume 95.9 fl (80-94); Mean Platelet Volume 7.8 fl (7.4-10.4); Monocytes # 0.8 K/mm3 (0.1-1.0); Monocytes % 7.7 % (1.7-9.3); Neutrophils # 7.4 K/mm3 (1.8-7.8); Neutrophils % 74.1 % (37.0-80.0); Platelet Count 237 K/mm3 (142-424); Red Cell Distribution Width 12.4 % (11.5-17.5); White Blood Count 9.9 K/mm3 (4.8-10.8)
[2020-12-03 22:13] LABS: Microscopic, Urine URINE MICROSCOPIC (MICROSCOPIC)
[2020-12-03 22:38] LABS: Appearance,Urine CLEAR (Clear); Bilirubin,Urine Negative (Negative); Blood, Urine Negative (Negative); Color,Urine DK YELLOW (Yellow); Glucose,Urine (UA) Negative (Negative); Ketones,Urine Negative (Negative); Leukocyte Esterase,Urine Negative (Negative); Nitrate,Urine Negative (Negative); Protein,Urine Negative (Negative); Specific Gravity, Urine >= 1.030 (1.005-1.030); Urobilinogen,Urine 0.2 EU/dl (0.2)
[2020-12-03 22:44] LABS: Alanine Aminotransferase 16 U/L (12-78); Albumin Level 4.5 g/dl (3.5-5.0); Albumin/Globulin Ratio 1.7 (1.1-1.8); Alkaline Phosphatase 77 U/L (38-126); Aspartate Amino Transferase 22 U/L (17-59); Bilirubin,Total 1.2 mg/dl (0.2-1.3); Blood Urea Nitrogen 11 mg/dl (9-20); Calcium 8.8 mg/dl (8.4-10.2); Carbon Dioxide 30 mmol/L (22.0-30.0); Chloride 104 mmol/L (98-107); Creatinine Clearance Estimated 134 mL/min (50-200); Estimated Glomerular Filt Rate 97 ml/min (>60); GFR (African American) 117 ML/MIN (>60); Globulin 2.6 g/dL (1.3-3.2); Glucose 100 mg/dl (74-100); Sodium 140 mmol/L (136-145); Total Protein,Serum 7.1 g/dl (6.3-8.2)
[2020-12-03 22:51] LABS: Barbiturates Screen,Urine Negative ng/ml (<200)
[2020-12-03 22:51] LABS: C-Reactive Protein 0.5 mg/L (0-4)
[2020-12-03 22:52] LABS: Amphetamine/Metha Screen,Urine Negative ng/ml (<1000); Benzodiazepines Screen,Urine Negative ng/ml (<200)
[2020-12-03 22:53] LABS: Cannabinoid Screen,Urine Negative ng/ml (<50)
[2020-12-03 22:54] LABS: Cocaine Screen,Urine Negative ng/ml (<300); Methadone Screen,Urine Negative ng/ml (<300)
[2020-12-03 22:55] LABS: Opiate Screen,Urine Negative ng/ml (<300)
[2020-12-03 22:56] LABS: Phencyclidine Screen,Urine Negative ng/ml (<25)
[2020-12-03 23:14] LABS: WBC,Urine Occasional #/hpf (0-3)
[2020-12-03 23:15] LABS: Procalcitonin < 0.030 ng/mL (0.0-2.0)
[2020-12-03 23:17] VITALS: BP 142/82; PULSE 83; RESP 16; TEMP 36.7; O2SAT 99
[2020-12-03 23:19] LABS: Erythrocyte Sedimentation Rate 1 mm/hr (0-15)
== END 2020-12-03 23:18 | disposition home or self-care (01) ==
PROVIDERS: Emergency Provider Emergency Medicine
DX: F41.9 Anxiety disorder, unspecified (principal); F17.210 Nicotine dependence, cigarettes, uncomplicated; Z88.0 Allergy status to penicillin; Z88.5 Allergy status to narcotic agent
CPT/HCPCS: 80053; 80305; 81001; 84145; 85025; 85651; 86140; 96365; 99282

== ENCOUNTER 2021-02-13 21:44 | Emergency (ER) | payer OTHER, SELFPAY ==
[2021-02-13 21:39] VITALS: BP 156/87; PULSE 76; RESP 16; TEMP 36.8; O2SAT 98; BMI 29.0
--- NOTE | 2021-02-13 21:39 | ECG_ITS ---
APPROVED REPORT Exam: Resting ECG HR:82 bpm ECG Measurements Heart Rate [address] 140 P 63 QRSd 86 QRS 24 QT 330 T 52 QTc 385 Conclusion Normal sinus rhythm Normal ECG Electronically signed by : Janak Emmanuel MD 02/14/2021 17:48:42
--- NOTE | 2021-02-13 21:45 | XR_ITS ---
PROCEDURE INFORMATION: Exam: XR Chest Exam date and time: 02/13/2021 9:45 PM Age: 35 years old Clinical indication: Sternal or substernal pain; Prior surgery; Surgery date: 6+ months; Surgery type: Open heart surgery as a child. ; Additional info: Cp TECHNIQUE: Imaging protocol: XR of the chest. Views: 2 views. COMPARISON: CR XR CHEST PORTABLE 10/17/2020 10:27 PM FINDINGS: Lungs: The lungs are clear without consolidation. Pleural spaces: Unremarkable. No pleural effusion. No pneumothorax. Heart/Mediastinum: The cardiac silhouette, mediastinal contours and hilar shadows appear unremarkable. Bones/joints: Osseous structures grossly intact. Organs: There is a 7 by 9 mm calcification projecting over the right renal shadow suggestive of nephrolithiasis. IMPRESSION: No acute cardiopulmonary disease.
[2021-02-13 22:01] LABS: Basophils # 0.1 K/mm3 (0-0.2); Basophils % 1.3 % (0.1-2.0); Eosinophils # 0.2 K/mm3 (0.0-0.4); Eosinophils % 2.2 % (0.1-12.0); Hematocrit 55.9 % (42.0-52.0); Lymphocytes # 1.7 K/mm3 (0.7-4.5); Lymphocytes % 16.7 % (10-50); Mean Corpuscular HGB Conc 33.6 g/dL (31.8-35.4); Mean Corpuscular Hemoglobin 33.6 pg (27.0-31.2); Mean Platelet Volume 10.3 fl (7.4-10.4); Monocytes # 0.6 K/mm3 (0.1-1.0); Monocytes % 6.1 % (1.7-9.3); Neutrophils # 7.6 K/mm3 (1.8-7.8); Neutrophils % 73.7 % (37.0-80.0); Platelet Count 298 K/mm3 (142-424); Red Blood Count 5.59 M/mm3 (4.60-6.20); Red Cell Distribution Width 13.4 % (11.5-17.5); White Blood Count 10.3 K/mm3 (4.8-10.8)
[2021-02-13 22:05] LABS: Alanine Aminotransferase 16 U/L (12-78); Albumin Level 4.6 g/dl (3.5-5.0); Albumin/Globulin Ratio 1.6 (1.1-1.8); Alkaline Phosphatase 65 U/L (38-126); Anion Gap 10.3 mEq/L (5-15); Aspartate Amino Transferase 27 U/L (17-59); Bilirubin,Total 1.5 mg/dl (0.2-1.3); Blood Urea Nitrogen 9 mg/dl (9-20); Calcium 9.7 mg/dl (8.4-10.2); Carbon Dioxide 31 mmol/L (22.0-30.0); Chloride 104 mmol/L (98-107); Creatinine Clearance Estimated 150 mL/min (50-200); Estimated Glomerular Filt Rate 111 ml/min (>60); GFR (African American) 134 ML/MIN (>60); Globulin 2.9 g/dL (1.3-3.2); Glucose 109 mg/dl (74-100); Potassium 4.3 mmoL/L (3.5-5.1); Sodium 141 mmol/L (136-145); Total Protein,Serum 7.5 g/dl (6.3-8.2)
[2021-02-13 22:11] LABS: C-Reactive Protein 0.9 mg/L (0-4)
--- NOTE | 2021-02-13 22:14 | HMH.EDCP ---
ED Disposition Clinical Impression: Atypical chest pain, Vasovagal episode Disposition: Home, Self-Care Condition on Discharge: Good Instructions: DI for Atypical Chest Pain Additional Instructions: call pcp for follow up Referrals: Janak Emmanuel MD [Primary Care Provider] - - Critical Care Critical Care Time: No Attestation: On 02/13/21, the high probability of a clinically significant, sudden or life threatening deterioration of the following system(s) required my full and direct attention, intervention and personal management. The time I documented below is in addition to time spent performing reported procedures but includes the following listed in this critical care notation. Medical Decision Making - Medical Records Medical records reviewed: Yes: I reviewed the patient's medical records. - Sony Inquiry Pt receiving controlled substance: No Vital Signs: 02/13/21 21:39 Temperature 98.3 F Temperature Source Oral Pulse Rate [Right] 76 Respiratory Rate 16 Blood Pressure [Right Arm] 156/87 H Blood Pressure Mean [Right Arm] 110 02 Sat by Pulse Oximetry 98 - Lab Data Lab results reviewed: Yes: I reviewed the patient's lab results. Lab Results 02/13/21 21:47: WBC 10.3, RBC 5.59, Hct 55.9 H, MCV 100.0 H, MCH 33.6 H, MCHC 33.6, RDW 13.4, Plt Count 298, MPV 10.3, Neut % (Auto) 73.7, Lymph % (Auto) 16.7, [place] % (Auto) 6.1, Eos % (Auto) 2.2, Baso % (Auto) 1.3, Neut # (Auto) 7.6, Lymph # (Auto) 1.7, [place] # (Auto) 0.6, Eos # (Auto) 0.2, Baso # (Auto) 0.1, ESR 1 02/13/21 21:47: Sodium 141, Potassium 4.3, Chloride 104, Carbon Dioxide 31 H, Anion Gap 10.3, BUN 9, Creatinine 0.80, Estimated Creat Clear 150, Estimated GFR 111, Est GFR ( Amer) 134, Glucose 109 H, Calcium 9.7, Total Bilirubin 1.5 H, AST 27, ALT 16, Alkaline Phosphatase 65, Troponin I < 0.01, C-Reactive Protein 0.9, Total Protein 7.5, Albumin 4.6, Globulin 2.9, Albumin/Globulin Ratio 1.6, Procalcitonin 0.033 Result diagrams: 02/13/21 21:47 02/13/21 21:47 Orders (Tests/Meds): ED MEDICATIONS Generic Name Dose Route Start Last Admin Trade Name Freq PRN Reason Stop Dose Admin Sodium Chloride 1,000 mls @ 999 mls/hr 02/13/21 22:00 02/13/21 21:53 Sod Chlor 0.9% 1000ml Bag IV 02/13/21 23:00 999 mls/hr .Q1H1M DOROTHY Administration Discontinued Medications Generic Name Dose Route Start Last Admin Trade Name Freq PRN Reason Stop Dose Admin Aspirin 324 mg 02/13/21 21:46 02/13/21 21:53 Aspirin 81mg Chewable Tablet PO 02/13/21 21:47 324 mg ONCE ONE Administration Ondansetron HCl 4 mg 02/13/21 21:50 02/13/21 21:53 Ondansetron 4mg/2ml Vial IV 02/13/21 21:51 4 mg ONCE ONE Administration ORDERS Category Date Time Status Chest XR 2 view (NOT portable) [XR chest 2V] Stat Exams 02/13/21 21:45 Taken Complete Blood Count Auto Diff Stat Lab 02/13/21 21:47 Results Erythrocyte Sedimentation Rate Stat Lab 02/13/21 21:47 Results Troponin I Q3H Lab 02/14/21 01:00 Ordered Troponin I Q3H Lab 02/14/21 04:00 Ordered - ECG Data Tracing #1 Normal Sinus Rhythm: Yes Ischemic changes: non-specific ST-T wave changes Medical Decision Narrative: prob vasovagal episode and needs to see pcp for follow up Chest Pain HPI - General Chief Complaint: Chest Pain Stated Complaint: cp Time Seen by Provider: 02/13/21 22:14 Mode of Arrival: EMS Source of Information: Patient, EMS, Medical Record Limitations: No Limitations Description of Symptoms (Recalled from ER Triage Doc. by RN): pt c/o chest pain rating it a 4/10 after having an argument with girlfriend - History of Present Illness HPI narrative: pt with hx of chest pain with assoc passing out episode after upset of girlfriend MD complaint: chest pain indicative of cardiac Onset (ago): hour(s) Duration: now resolved Activity at onset: emotional stress event Pain location: left chest Severity: moderate Quality: sharp Associated symptoms: sync
[2021-02-13 22:23] LABS: Troponin I < 0.01 ng/ml (0.00-0.034)
[2021-02-13 22:24] LABS: Procalcitonin 0.033 ng/mL (0.0-2.0)
[2021-02-13 22:36] LABS: Erythrocyte Sedimentation Rate 1 mm/hr (0-15)
[2021-02-13 22:38] VITALS: BP 141/96; PULSE 82; RESP 16; TEMP 36.9; O2SAT 97
[2021-02-13 22:40] LABS: Hemoglobin 18.8 g/dL (14.1-18.0)
== END 2021-02-13 22:46 | disposition home or self-care (01) ==
PROVIDERS: Emergency Provider Emergency Medicine; PCP Internal Medicine Adolescent Medicine
DX: R07.89 Other chest pain (principal); R42 Dizziness and giddiness; F17.210 Nicotine dependence, cigarettes, uncomplicated
CPT/HCPCS: 71046; 80053; 84145; 84484; 85025; 85651; 86140; 93005; 96365; 99283; J2405

== ENCOUNTER 2021-05-04 21:35 | Emergency (ER) | payer OTHER, SELFPAY ==
[2021-05-04 21:35] VITALS: BP 143/69; PULSE 90; RESP 17; TEMP 37.1; O2SAT 97; BMI 29.0
[2021-05-04 21:51] LABS: POC Glucose,Bedside 117 (70-110)
[2021-05-04 21:56] VITALS: BP 143/69; PULSE 88; RESP 17; O2SAT 97
--- NOTE | 2021-05-04 22:11 | ECG_ITS ---
APPROVED REPORT Exam: Resting ECG HR:85 bpm ECG Measurements Heart Rate 85 AXES [place] 140 P 58 QRSd 90 QRS 22 QT 342 T 49 QTc 406 Conclusion Normal sinus rhythm Possible Left atrial enlargement Borderline ECG Electronically signed by : Janak Emmanuel MD 05/05/2021 09:07:09
[2021-05-04 22:12] VITALS: BMI 29.0
[2021-05-04 22:49] VITALS: BP 142/60; PULSE 78; O2SAT 98
[2021-05-04 23:07] LABS: Microscopic, Urine URINE MICROSCOPIC (MICROSCOPIC)
[2021-05-04 23:08] LABS: Appearance,Urine CLEAR (Clear); Bilirubin,Urine Negative (Negative); Blood, Urine Negative (Negative); Color,Urine YELLOW (Yellow); Glucose,Urine (UA) Negative (Negative); Ketones,Urine Negative (Negative); Leukocyte Esterase,Urine Negative (Negative); Nitrate,Urine Negative (Negative); Protein,Urine Negative (Negative); Specific Gravity, Urine 1.025 (1.005-1.030); Urobilinogen,Urine 0.2 EU/dl (0.2)
[2021-05-04 23:13] LABS: Basophils # 0.2 K/mm3 (0-0.2); Basophils % 2.5 % (0.1-2.0); Eosinophils # 0.2 K/mm3 (0.0-0.4); Eosinophils % 2.9 % (0.1-12.0); Hematocrit 58.1 % (42.0-52.0); Lymphocytes # 1.4 K/mm3 (0.7-4.5); Lymphocytes % 19.8 % (10-50); Mean Corpuscular HGB Conc 32.3 g/dL (31.8-35.4); Mean Corpuscular Hemoglobin 32.8 pg (27.0-31.2); Mean Corpuscular Volume 101.7 fl (80-94); Mean Platelet Volume 8.6 fl (7.4-10.4); Monocytes # 0.6 K/mm3 (0.1-1.0); Monocytes % 8.3 % (1.7-9.3); Neutrophils # 4.8 K/mm3 (1.8-7.8); Neutrophils % 66.5 % (37.0-80.0); Platelet Count 242 K/mm3 (142-424); Red Blood Count 5.72 M/mm3 (4.60-6.20); Red Cell Distribution Width 12.3 % (11.5-17.5); White Blood Count 7.2 K/mm3 (4.8-10.8)
[2021-05-04 23:20] LABS: Alanine Aminotransferase 16 U/L (12-78); Albumin Level 4.7 g/dl (3.5-5.0); Albumin/Globulin Ratio 1.8 (1.1-1.8); Alkaline Phosphatase 70 U/L (38-126); Aspartate Amino Transferase 22 U/L (17-59); Bilirubin,Total 1.1 mg/dl (0.2-1.3); Blood Urea Nitrogen 13 mg/dl (9-20); Calcium 9.4 mg/dl (8.4-10.2); Carbon Dioxide 31 mmol/L (22.0-30.0); Chloride 100 mmol/L (98-107); Creatinine Clearance Estimated 134 mL/min (50-200); Estimated Glomerular Filt Rate 97 ml/min (>60); GFR (African American) 117 ML/MIN (>60); Globulin 2.6 g/dL (1.3-3.2); Glucose 85 mg/dl (74-100); Sodium 138 mmol/L (136-145); Total Protein,Serum 7.3 g/dl (6.3-8.2)
[2021-05-04 23:21] LABS: Magnesium 2.2 mg/dl (1.6-2.3)
[2021-05-04 23:25] VITALS: BP 99/71; PULSE 81; O2SAT 96
[2021-05-04 23:25] LABS: Squamous Epithelial Cell,Urine Occasional #/hpf (0-5); WBC,Urine Occasional #/hpf (0-3)
[2021-05-04 23:26] LABS: C-Reactive Protein 0.8 mg/L (0-4)
[2021-05-04 23:36] LABS: Hemoglobin 18.8 g/dL (14.1-18.0)
[2021-05-04 23:40] LABS: Procalcitonin 0.037 ng/mL (0.0-2.0)
[2021-05-04 23:41] LABS: Troponin I < 0.01 ng/ml (0.00-0.034)
--- NOTE | 2021-05-04 23:43 | HMH.EDWEAK ---
ED Disposition Clinical Impression: Weakness Disposition: Home, Self-Care Condition on Discharge: Good Instructions: DI for Muscle Weakness Additional Instructions: call pcp for follow up Referrals: Janak Emmanuel MD [Primary Care Provider] - - Critical Care Critical Care Time: No Attestation: On 05/04/21, the high probability of a clinically significant, sudden or life threatening deterioration of the following system(s) required my full and direct attention, intervention and personal management. The time I documented below is in addition to time spent performing reported procedures but includes the following listed in this critical care notation. Medical Decision Making - Medical Records Medical records reviewed: Yes: I reviewed the patient's medical records. - Sony Inquiry Pt receiving controlled substance: No Vital Signs: 05/04/21 21:35 05/04/21 21:56 05/04/21 22:49 Temperature 98.8 F Temperature Source Oral Pulse Rate 88 78 Pulse Rate [Right] 90 Respiratory Rate 17 17 Blood Pressure 143/69 H 142/60 H Blood Pressure [Right Arm] 143/69 H Blood Pressure Mean [Right Arm] 93 Blood Pressure Source Automatic Cuff Automatic Cuff Blood Pressure Position Supine Supine 02 Sat by Pulse Oximetry 97 97 98 Oxygen Delivery Method Room Air Room Air Room Air 05/04/21 23:25 Temperature Temperature Source Pulse Rate 81 Pulse Rate [Right] Respiratory Rate Blood Pressure 99/71 L Blood Pressure [Right Arm] Blood Pressure Mean [Right Arm] Blood Pressure Source Automatic Cuff Blood Pressure Position Supine 02 Sat by Pulse Oximetry 96 Oxygen Delivery Method Room Air - Lab Data Lab results reviewed: Yes: I reviewed the patient's lab results. Lab Results 05/04/21 21:44: POC Glucose 117 H 05/04/21 22:05: Urine Color Yellow, Urine Appearance Clear, Urine pH 7.0, Ur Specific [place] 1.025, Urine Protein Negative, Urine Glucose (UA) Negative, Urine Ketones Negative, Urine Blood Negative, Urine Nitrate Negative, Urine Bilirubin Negative, Urine Urobilinogen 0.2, Ur Leukocyte Esterase Negative, Urine RBC None, Urine WBC Occasional, Ur Squamous Epith Cells Occasional, Urine Bacteria None 05/04/21 23:00: WBC 7.2, RBC 5.72, Hgb 18.8 H, Hct 58.1 H, MCV 101.7 H, MCH 32.8 H, MCHC 32.3, RDW 12.3, Plt Count 242, MPV 8.6, Neut % (Auto) 66.5, Lymph % (Auto) 19.8, [place] % (Auto) 8.3, Eos % (Auto) 2.9, Baso % (Auto) 2.5 H, Neut # (Auto) 4.8, Lymph # (Auto) 1.4, [place] # (Auto) 0.6, Eos # (Auto) 0.2, Baso # (Auto) 0.2 05/04/21 23:00: Sodium 138, Potassium 4.0, Chloride 100, Carbon Dioxide 31 H, Anion Gap 11.0, BUN 13, Creatinine 0.90, Estimated Creat Clear 134, Estimated GFR 97, Est GFR ( Amer) 117, Glucose 85, Calcium 9.4, Total Bilirubin 1.1, AST 22, ALT 16, Alkaline Phosphatase 70, Troponin I < 0.01, C-Reactive Protein 0.8, Total Protein 7.3, Albumin 4.7, Globulin 2.6, Albumin/Globulin Ratio 1.8 05/04/21 23:00: Magnesium 2.2, Procalcitonin 0.037 Result diagrams: 05/04/21 23:00 05/04/21 23:00 Orders (Tests/Meds): ED MEDICATIONS Generic Name Dose Route Start Last Admin Trade Name Freq PRN Reason Stop Dose Admin Sodium Chloride 1,000 mls @ 999 mls/hr 05/04/21 23:00 05/04/21 23:26 Sod Chlor 0.9% 1000ml Bag IV 05/05/21 00:00 999 mls/hr .Q1H1M DOROTHY Administration ORDERS Category Date Time Status Erythrocyte Sedimentation Rate Stat Lab 05/04/21 23:00 Received Troponin I Q3H Lab 05/05/21 02:00 Ordered Troponin I Q3H Lab 05/05/21 05:00 Ordered 12-lead EKG Request [ECG Request by /Dee] Stat Y 05/04/21 22:25 Ordered - ECG Data Tracing #1 Normal Sinus Rhythm: Yes Ischemic changes: non-specific ST-T wave changes Medical Decision Narrative: weakness nonspecific - possible medication - stable exam and labs - call pcp for follow up Weakness HPI - General Chief complaint: Weakness Stated complaint: weakness Time Seen by Provider: 05/04/21 23:43 Mode of Arri
--- NOTE | 2021-05-04 23:44 | PC.NURSE ---
DR. HINTON IN TO SEE PATIENT.
[2021-05-04 23:55] VITALS: BP 134/84; PULSE 74; RESP 15; TEMP 36.7
[2021-05-05 00:02] LABS: Erythrocyte Sedimentation Rate 2 mm/hr (0-15)
[2021-05-05 00:23] LABS: T4 (Thyroxine) 7.5 ug/dl (5.53-11.0)
[2021-05-05 00:36] LABS: Thyroid Stimulating Hormone 0.73 uIU/mL (0.465-4.68)
== END 2021-05-04 23:57 | disposition home or self-care (01) ==
PROVIDERS: Emergency Provider Emergency Medicine; PCP Internal Medicine Adolescent Medicine
DX: R53.83 Other fatigue (principal); Z88.0 Allergy status to penicillin; Z88.5 Allergy status to narcotic agent; F17.210 Nicotine dependence, cigarettes, uncomplicated
CPT/HCPCS: 80053; 81001; 82962; 83735; 84145; 84436; 84443; 84484; 85025; 85651; 86140; 93005; 96365; 99282

== ENCOUNTER 2021-06-03 18:17 | Emergency (ER) | payer OTHER, SELFPAY ==
[2021-06-03 18:18] VITALS: BP 130/92; PULSE 88; RESP 16; TEMP 36.8; O2SAT 100; BMI 25.8
--- NOTE | 2021-06-03 18:21 | XR_ITS ---
PROCEDURE INFORMATION: Exam: XR Right Ribs with PA Chest Exam date and time: 06/03/2021 6:21 PM Age: 35 years old Clinical indication: Injury or trauma; Fall; Rib area; Blunt trauma (contusions or hematomas); Injury date: 06/03/21; Additional info: Fall, pain, fell on back of truck TECHNIQUE: Imaging protocol: XR Right ribs with PA chest. Views: 3 views COMPARISON: CR XR CHEST 2V 02/13/2021 9:45 PM FINDINGS: Lungs: Unremarkable. No consolidation. Pleural spaces: Unremarkable. No pleural effusion. No pneumothorax. Heart/Mediastinum: Unremarkable. No cardiomegaly. Bones/joints: Unremarkable. IMPRESSION: No acute findings.
--- NOTE | 2021-06-03 18:22 | ED_ITS ---
ED Disposition Clinical Impression: Chest wall pain Disposition: Home, Self-Care Condition on Discharge: Good Instructions: DI for Musculoskeletal Pain Additional Instructions: follow up pcp as needed - Critical Care Critical Care Time: No Attestation: On , the high probability of a clinically significant, sudden or life threatening deterioration of the following system(s) required my full and direct attention, intervention and personal management. The time I documented below is in addition to time spent performing reported procedures but includes the following listed in this critical care notation. Medical Decision Making - Sony Inquiry Pt receiving controlled substance: No Orders (Tests/Meds): ORDERS Category Date Time Status XR ribs RT min 3V w CXR1V Stat Exams 06/03/21 18:21 Taken General Adult HPI - General Stated complaint: right rib pain Time Seen by Provider: 06/03/21 18:22 Mode of Arrival: Ambulatory Source of Information: Patient - History of Present Illness HPI narrative: fall at work hit rt chest on truck Onset (ago): minute(s) Radiation: non-radiation Severity: moderate Relieving factors: immobilization Exacerbating factors: movement Associated symptoms: denies other symptoms - Related Data Home Medications Medication Instructions Recorded Confirmed Propranolol HCl [Inderal 20mg 20 mg PO BID 08/19/20 10/17/20 Tablet] Allergies Allergy/AdvReac Type Severity Reaction Status Date / Time codeine [CODEINE] Allergy Unknown Verified 07/02/18 19:58 Penicillins [PENICILLINS] Allergy Unknown Verified 07/02/18 19:58 [facility] History - Hepatitis A Screen Attestation statement:: This patient has been screened for Hepatitis A risk factors. Medical History: Reports:: Cancer Denies:: Diabetes Mellitus Type 1, Diabetes Mellitus Type 2 - Social History Smoking Status: Current every day smoker Tobacco Type: cigarettes # Packs/Day (cigarettes): 1 Alcohol Intake: never Occupational Status: unemployed ROS Obtained: Yes All systems reviewed & no additional complaints Physical Exam - General General appearance: alert, in no apparent distress - Chest Chest inspection: Present: other (ttp rt ribs) - Respiratory Respiratory exam: Present: normal lung sounds bilaterally. Absent: respiratory distress, wheezes, accessory muscle use - Cardiovascular Cardiovascular exam: Present: regular rate, normal rhythm. Absent: bradycardia, tachycardia - Neurological Exam Neurological exam: Present: alert, oriented X3, CN II-XII intact
[2021-06-03 19:15] VITALS: BP 146/70; PULSE 70; RESP 16; TEMP 36.8; O2SAT 98
== END 2021-06-03 19:16 | disposition home or self-care (01) ==
PROVIDERS: Emergency Provider Emergency Medicine; PCP Internal Medicine Adolescent Medicine
DX: R07.89 Other chest pain (principal)
CPT/HCPCS: 71101; 99282

== ENCOUNTER 2021-06-17 20:55 | Emergency (ER) | payer OTHER, SELFPAY ==
[2021-06-17 20:35] VITALS: BP 130/86; PULSE 99; RESP 20; TEMP 37.2; O2SAT 96; BMI 29.0
--- NOTE | 2021-06-17 20:44 | XR_ITS ---
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 ; Additional info: Chest pain, smoker TECHNIQUE: Imaging protocol: XR of the chest. Views: 1 view. COMPARISON: CR XR RIBS RT MIN 3V W CXR1V 06/03/2021 6:18 PM FINDINGS: Lungs: Unremarkable. No consolidation. Pleural spaces: Unremarkable. No pleural effusion. No pneumothorax. Heart/Mediastinum: Unremarkable. No cardiomegaly. Bones/joints: Unremarkable. IMPRESSION: No acute findings.
--- NOTE | 2021-06-17 20:46 | HMH.EDGENADL ---
ED Disposition Clinical Impression: Grief reaction Chest pain Qualifiers: Chest pain type: precordial pain Qualified Code(s): R07.2 - Precordial pain Disposition: Home, Self-Care Condition on Discharge: Good Instructions: DI for Atypical Chest Pain Additional Instructions: You have been evaluated for chest pain. Does not appear to be a heart attack tonight. Is very important that you continue to monitor your symptoms. Try to reduce stress. Take Propranolol as prescribed. Return to the emergency department for any new or worsening symptoms. Referrals: Janak Emmanuel MD [Primary Care Provider] - Time of Disposition: 22:46 - Critical Care Critical Care Time: No Attestation: On , the high probability of a clinically significant, sudden or life threatening deterioration of the following system(s) required my full and direct attention, intervention and personal management. The time I documented below is in addition to time spent performing reported procedures but includes the following listed in this critical care notation. Medical Decision Making - Medical Records Medical records reviewed: Yes: I reviewed the patient's medical records. - Sony Inquiry Pt receiving controlled substance: No Vital Signs: 06/17/21 20:35 Temperature 98.9 F Temperature Source Oral Pulse Rate [Apical] 99 H Respiratory Rate 20 Blood Pressure [Right Arm] 130/86 Blood Pressure Mean [Right Arm] 100 Blood Pressure Source [Right Arm] Automatic Cuff Blood Pressure Position [Right Arm] Sitting 02 Sat by Pulse Oximetry 96 Oxygen Delivery Method Room Air - Lab Data Lab Results 06/17/21 20:44: WBC 9.3, RBC 5.52, Hct 55.2 H, MCV 100.0 H, MCH 32.7 H, MCHC 32.7, RDW 12.8, Plt Count 253, MPV 8.9, Neut % (Auto) 71.5, Lymph % (Auto) 17.8, Overton % (Auto) 6.3, Eos % (Auto) 1.5, Baso % (Auto) 2.9 H, Neut # (Auto) 6.7, Lymph # (Auto) 1.7, Overton # (Auto) 0.6, Eos # (Auto) 0.1, Baso # (Auto) 0.3 H 06/17/21 20:44: Sodium 134 L, Potassium 5.0, Chloride 96 L, Carbon Dioxide 27, Anion Gap 16.0 H, BUN 15, Creatinine 0.90, Estimated GFR 97, Est GFR ( Amer) 117, Glucose 100, Calcium 9.9, Total Bilirubin 1.6 H, AST 41, ALT 19, Alkaline Phosphatase 61, Troponin I 0.02, Total Protein 8.5 H, Albumin 5.2 H, Globulin 3.3 H, Albumin/Globulin Ratio 1.6 Result diagrams: 06/17/21 20:44 06/17/21 20:44 Orders (Tests/Meds): ED MEDICATIONS Discontinued Medications Generic Name Dose Route Start Last Admin Trade Name Candelario PRN Reason Stop Dose Admin Aspirin 325 mg 06/17/21 20:44 06/17/21 21:20 Aspirin 325mg Tablet PO 06/17/21 20:45 Not Given ONCE ONE Aspirin 324 mg 06/17/21 21:21 06/17/21 21:21 Aspirin 81mg Chewable Tablet PO 06/17/21 21:22 324 mg ONCE ONE Administration ORDERS Category Date Time Status Complete Blood Count Auto Diff Stat Lab 06/17/21 20:44 Results Troponin I Q3H Lab 06/17/21 23:45 Ordered Troponin I Q3H Lab 06/18/21 02:45 Ordered - ECG Data Tracing #1 Sinus rhythm with ventricular rate of 89. QRS 93, QTc 374. Evidence of LVH. No ST segment elevation. No arrhythmia. - MAURILIO Score for Non-Stemi Age of Patient: 30-39 years old Heart Rate: 90-109 bpm Systolic Blood Pressure: 120-139 mmhg Serum Creatinine: 0.40-0.79 mg/dl CHF Killip Class: I-No CHF Other Risk Factors: None Non-Stemi Risk Score: 61 Medical Decision Narrative: In summary this is a 35-year-old male presenting to the emergency department with chest pain. Patient clinically stable on arrival. Vital signs within normal limits. Concern for ACS, vasospasm. Will obtain CBC, CMP, chest x-ray, EKG, troponin profile. Patient given 325 chewable aspirin EKG shows sinus rhythm without evidence of ischemia or arrhythmia. Initial laboratory results are reassuring. Initial troponin is 0.02. Repeat troponin shows no change. Chest x-ray shows no focal opacity or multifocal pneumonia. On reassessment, patient says h
--- NOTE | 2021-06-17 20:47 | ECG_ITS ---
APPROVED REPORT Exam: Resting ECG HR:89 bpm ECG Measurements Heart Rate 89 AXES IN 148 P 76 QRSd 93 QRS 64 QT 327 T 73 QTc 374 Conclusion SINUS RHYTHM POSSIBLE RIGHT VENTRICULAR CONDUCTION DELAY [RSR (QR) IN V1/V2] BORDERLINE ECG UNCONFIRMED REPORT Electronically signed by : Janak Emmanuel MD 06/18/2021 17:52:00
[2021-06-17 21:01] LABS: Basophils # 0.3 K/mm3 (0-0.2); Basophils % 2.9 % (0.1-2.0); Eosinophils # 0.1 K/mm3 (0.0-0.4); Eosinophils % 1.5 % (0.1-12.0); Hematocrit 55.2 % (42.0-52.0); Lymphocytes # 1.7 K/mm3 (0.7-4.5); Lymphocytes % 17.8 % (10-50); Mean Corpuscular HGB Conc 32.7 g/dL (31.8-35.4); Mean Corpuscular Hemoglobin 32.7 pg (27.0-31.2); Mean Platelet Volume 8.9 fl (7.4-10.4); Monocytes # 0.6 K/mm3 (0.1-1.0); Monocytes % 6.3 % (1.7-9.3); Neutrophils # 6.7 K/mm3 (1.8-7.8); Neutrophils % 71.5 % (37.0-80.0); Platelet Count 253 K/mm3 (142-424); Red Blood Count 5.52 M/mm3 (4.60-6.20); Red Cell Distribution Width 12.8 % (11.5-17.5); White Blood Count 9.3 K/mm3 (4.8-10.8)
[2021-06-17 21:03] LABS: Chloride 96 mmol/L (98-107); Sodium 134 mmol/L (136-145)
[2021-06-17 21:06] LABS: Alanine Aminotransferase 19 U/L (12-78); Albumin Level 5.2 g/dl (3.5-5.0); Albumin/Globulin Ratio 1.6 (1.1-1.8); Alkaline Phosphatase 61 U/L (38-126); Aspartate Amino Transferase 41 U/L (17-59); Bilirubin,Total 1.6 mg/dl (0.2-1.3); Blood Urea Nitrogen 15 mg/dl (9-20); Estimated Glomerular Filt Rate 97 ml/min (>60); GFR (African American) 117 ML/MIN (>60); Globulin 3.3 g/dL (1.3-3.2); Total Protein,Serum 8.5 g/dl (6.3-8.2)
[2021-06-17 21:07] LABS: Calcium 9.9 mg/dl (8.4-10.2); Carbon Dioxide 27 mmol/L (22.0-30.0); Glucose 100 mg/dl (74-100)
[2021-06-17 21:18] LABS: Troponin I 0.02 ng/ml (0.00-0.034)
[2021-06-17 22:44] LABS: Hemoglobin 18.2 g/dL (14.1-18.0)
[2021-06-17 23:48] LABS: Troponin I < 0.01 ng/ml (0.00-0.034)
[2021-06-18 00:07] VITALS: BP 120/80; PULSE 80; RESP 20; TEMP 36.8; O2SAT 98
== END 2021-06-18 00:09 | disposition home or self-care (01) ==
PROVIDERS: Emergency Medicine; Emergency Provider Emergency Medicine; PCP Internal Medicine Adolescent Medicine
DX: F43.21 Adjustment disorder with depressed mood (principal); R42 Dizziness and giddiness; R07.2 Precordial pain; F17.210 Nicotine dependence, cigarettes, uncomplicated; Z88.0 Allergy status to penicillin; Z88.5 Allergy status to narcotic agent
CPT/HCPCS: 71045; 80053; 84484; 85025; 93005; 99282

== ENCOUNTER 2021-06-19 05:20 | Emergency (ER) | payer OTHER, SELFPAY ==
--- NOTE | 2021-06-19 05:19 | ECG_ITS ---
APPROVED REPORT Exam: Resting ECG HR:73 bpm ECG Measurements Heart Rate 73 AXES MO 149 P 76 QRSd 92 QRS 75 QT 353 T 71 QTc 379 Conclusion SINUS RHYTHM POSSIBLE RIGHT VENTRICULAR CONDUCTION DELAY [RSR (QR) IN V1/V2] MODERATE ST DEPRESSION [0.05+ mV ST DEPRESSION] ABNORMAL ECG UNCONFIRMED REPORT Electronically signed by : Janak Emmanuel MD 06/20/2021 19:02:07
[2021-06-19 05:20] VITALS: BP 131/79; PULSE 72; RESP 20; TEMP 36.8; O2SAT 98; BMI 28.1
[2021-06-19 05:30] VITALS: BP 132/78; PULSE 81; RESP 15; O2SAT 99
--- NOTE | 2021-06-19 05:36 | HMH.EDANX ---
ED Disposition Clinical Impression: Atypical chest pain, Anxiety reaction Disposition: Home, Self-Care Condition on Discharge: Good Instructions: Anxiety Disorders Additional Instructions: see pcp for follow up Referrals: Mazin Hartmann MD [Emergency Provider] - - Critical Care Critical Care Time: No Attestation: On , the high probability of a clinically significant, sudden or life threatening deterioration of the following system(s) required my full and direct attention, intervention and personal management. The time I documented below is in addition to time spent performing reported procedures but includes the following listed in this critical care notation. Medical Decision Making - Medical Records Medical records reviewed: Yes: I reviewed the patient's medical records. - Sony Inquiry Pt receiving controlled substance: No Vital Signs: 06/19/21 05:20 06/19/21 05:30 Temperature 98.2 F Temperature Source Oral Pulse Rate 81 Pulse Rate [Apical] 72 Respiratory Rate 20 15 Blood Pressure 132/78 Blood Pressure [Right Arm] 131/79 Blood Pressure Mean 95 Blood Pressure Mean [Right Arm] 96 Blood Pressure Source [Right Arm] Automatic Cuff Blood Pressure Position [Right Arm] Sitting 02 Sat by Pulse Oximetry 98 99 Oxygen Delivery Method Room Air Room Air - Lab Data Lab results reviewed: Yes: I reviewed the patient's lab results. Lab Results 06/19/21 05:30: Troponin I < 0.01 06/19/21 05:30: Triglycerides 101, Cholesterol 130 L, LDL Cholesterol Direct 72.19 L, VLDL Cholesterol 20, HDL Cholesterol 36 L, Cholesterol/HDL Ratio 3.6 H Orders (Tests/Meds): ORDERS Category Date Time Status Troponin I Q3H Lab 06/19/21 08:30 Ordered Troponin I Q3H Lab 06/19/21 11:30 Ordered - ECG Data Tracing #1 Normal Sinus Rhythm: Yes Ischemic changes: non-specific ST-T wave changes Medical Decision Narrative: has reported stress chest pain - has stable exam and ekg and trop - has had echo in past which was ok - should see pcp for follow up and stop smoking Anxiety HPI - General Chief Complaint: Anxiety Stated Complaint: anxiety induced chest pain Time Seen by Provider: 06/19/21 05:30 Mode of Arrival: EMS Source of Information: Patient, EMS, Medical Record Limitations: No Limitations Description of Symptoms (Recalled from ER Triage Doc. by RN): Pt c/o anxiety and slight chest pain in the middle of his chest. States that his chest pain is most likely due to his anxiety and he typically experiences this whenever he is upset. States that he has had an upsetting day. - History of Present Illness HPI narrative: pt with ongoing anxiety and has assoc chest pain - had recent ed visit for same MD complaint: anxiety Onset (ago): day(s) Symptoms: chest pain Severity: mild Place: home History of similar episodes: Yes Provoking factors: emotional stress Associated symptoms: denies other symptoms - Related Data Home Medications: Home Medications Medication Instructions Recorded Confirmed Propranolol HCl [Inderal 20mg 20 mg PO BID 08/19/20 06/19/21 Tablet] Allergies/Adverse Reactions: Allergies Allergy/AdvReac Type Severity Reaction Status Date / Time codeine [CODEINE] Allergy Unknown Verified 07/02/18 19:58 Penicillins [PENICILLINS] Allergy Unknown Verified 07/02/18 19:58 [facility] History - Hepatitis A Screen Drug use history?: No High risk sexual behaviors?: No History of sexually transmitted infection?: No Currently employed?: No Childcare worker?: No Do you have indoor plumbing?: Yes Do you have electricity?: Yes Attestation statement:: This patient has been screened for Hepatitis A risk factors. I have reviewed the patient's past medical history: Yes Medical History: Reports:: Cancer Denies:: Diabetes Mellitus Type 1, Diabetes Mellitus Type 2 - Social History Smoking Status: Current every day smoker Tobacco Type: cigarettes # Packs/Day (cigarettes
[2021-06-19 06:02] LABS: Chol/HDL Ratio 3.6 (1-3.5); Cholesterol 130 mg/dl (140-200); HDL Cholesterol 36 mg/dl (40-60); Triglycerides 101 mg/dl (30-150); VLDL Cholesterol 20 mg/dL (0-40)
[2021-06-19 06:13] LABS: Direct LDL Cholesterol 72.19 mg/dL (100-129)
[2021-06-19 06:17] LABS: Troponin I < 0.01 ng/ml (0.00-0.034)
[2021-06-19 06:35] VITALS: BP 106/58; PULSE 69; RESP 16; TEMP 36.7; O2SAT 98
== END 2021-06-19 06:40 | disposition home or self-care (01) ==
PROVIDERS: Emergency Provider Emergency Medicine; PCP Internal Medicine Adolescent Medicine
DX: R07.89 Other chest pain (principal); F41.1 Generalized anxiety disorder; F17.210 Nicotine dependence, cigarettes, uncomplicated
CPT/HCPCS: 80061; 84484; 93005; 99282

== ENCOUNTER 2021-12-18 18:59 | Emergency (ER) | payer OTHER, SELFPAY ==
[2021-12-18 18:25] VITALS: BP 122/53; PULSE 90; RESP 16; TEMP 37.5; O2SAT 99; BMI 25.8
[2021-12-18 18:39] VITALS: BMI 25.8
[2021-12-18 18:44] LABS: Influenza A, PCR Not Detected (NotDetected); Influenza B, PCR Not Detected (NotDetected)
[2021-12-18 19:17] LABS: Coronavirus 19, PCR Detected (NotDetected)
--- NOTE | 2021-12-18 20:25 | HMH.EDHA ---
ED Disposition Clinical Impression: COVID-19 Disposition: Home, Self-Care Condition on Discharge: Good Instructions: DI for COVID-19 (Suspected or Confirmed ) Additional Instructions: tyenol and fluids and see pcp for follow up Referrals: Provider,Referral, [Primary Care Provider] - - Critical Care Critical Care Time: No Attestation: On 12/18/21, the high probability of a clinically significant, sudden or life threatening deterioration of the following system(s) required my full and direct attention, intervention and personal management. The time I documented below is in addition to time spent performing reported procedures but includes the following listed in this critical care notation. Medical Decision Making - Medical Records Medical records reviewed: Yes: I reviewed the patient's medical records. - Sony Inquiry Pt receiving controlled substance: No Vital Signs: 12/18/21 18:25 Temperature 99.5 F Temperature Source Oral Pulse Rate [Right Radial] 90 Respiratory Rate 16 Blood Pressure [Right Arm] 122/53 L Blood Pressure Mean [Right Arm] 76 Blood Pressure Source [Right Arm] Automatic Cuff Blood Pressure Position [Right Arm] Sitting 02 Sat by Pulse Oximetry 99 Oxygen Delivery Method Room Air - Lab Data Lab results reviewed: Yes: I reviewed the patient's lab results. Lab Results 12/18/21 18:38: SARS-CoV-2 (PCR) Detected A, Influenza A Untype (PCR) Not detected, Influenza Type B (PCR) Not detected Medical Decision Narrative: stable exam and labs with positive covid-19 Headache HPI - General Chief Complaint: Headache Stated Complaint: weakness Time Seen by Provider: 12/18/21 20:25 Mode of Arrival: EMS Source of Information: Patient, EMS, Medical Record Limitations: No Limitations Description of Symptoms (Recalled from ER Triage Doc. by RN): Pt c/o sweating and RAMIREZ since this AM - History of Present Illness HPI Narrative: ramirez and fever and has not been feeling well - no cough or rash Complaint: headache Onset (ago): hour(s) Onset description: gradual Location: diffuse Severity: moderate Quality: aching Context: occurred at rest Associated symptoms: none Treatments prior to arrival: none - Related Data Home Medications Medication Instructions Recorded Confirmed Propranolol HCl [Inderal 20mg 20 mg PO BID 08/19/20 06/19/21 Tablet] Allergies Allergy/AdvReac Type Severity Reaction Status Date / Time codeine [CODEINE] Allergy Unknown Verified 07/02/18 19:58 Penicillins [PENICILLINS] Allergy Unknown Verified 07/02/18 19:58 [facility] History - Hepatitis A Screen Attestation statement:: This patient has been screened for Hepatitis A risk factors. I have reviewed the patient's past medical history: Yes Medical History: Reports:: Cancer Denies:: Diabetes Mellitus Type 1, Diabetes Mellitus Type 2 - Social History Smoking Status: Current every day smoker Tobacco Type: cigarettes # Packs/Day (cigarettes): 1 Alcohol Intake: never Occupational Status: unemployed ROS Obtained: Yes All systems reviewed & no additional complaints - Constitutional Constitutional: Denies fever(s), Reports weakness - Eyes Eyes: Denies change in vision - ENT Ears, Nose, Mouth, and Throat: Denies sore throat - Cardiovascular Cardiovascular: Denies chest pain - Respiratory Respiratory: Denies shortness of breath - Gastrointestinal Gastrointestingal: Denies: abdominal pain - Genitourinary Male Genitourinary: Denies hematuria - Musculoskeletal Musculoskeletal: Denies joint pain, Denies joint swelling - Integumentary/Breasts Skin/Breast: Denies rash - Neurologic Neurologic: Reports as per HPI, Reports headache(s), Denies seizure-like activity Physical Exam - General General appearance: alert - Head Head exam: normocephalic - Eye Eye exam: Present: PERRL, EOMI - ENT ENT exam: Present: normal oropharynx, mucous membranes moist - Neck Nec
[2021-12-18 20:44] VITALS: BP 130/55; PULSE 78; RESP 18; TEMP 36.8; O2SAT 99
== END 2021-12-18 20:46 | disposition home or self-care (01) ==
PROVIDERS: Emergency Medicine; Emergency Provider Emergency Medicine
DX: U07.1 COVID-19 (principal); F17.210 Nicotine dependence, cigarettes, uncomplicated
CPT/HCPCS: 99283; C9803; U0003; U0005

== ENCOUNTER 2022-01-17 14:41 | Emergency (ER) | payer OTHER, SELFPAY ==
[2022-01-17 14:41] VITALS: BP 122/70; PULSE 93; RESP 16; TEMP 36.8; O2SAT 98; BMI 25.8
--- NOTE | 2022-01-17 14:48 | PC.NURSE ---
pt ordered lunch tray
--- NOTE | 2022-01-17 15:04 | PC.NURSE ---
pt eating lunch tray
[2022-01-17 16:00] VITALS: BP 124/70; PULSE 72; RESP 20; TEMP 36.8; O2SAT 99
--- NOTE | 2022-01-17 20:46 | HMH.EDANX ---
Discharge Plan Disposition Patient Disposition: Home, Self-Care Condition: Good Prescriptions Prescriptions: No Action propranolol 20 MG tablet 20 mg PO BID Referrals Follow up/Referrals: Janak Emmanuel MD [Primary Care Provider] - See instructions Activity Restrictions/Add. Instructions Additional Instructions/Restrictions: Refill your propanolol today and follow up with your PCP Clinical Impressions Clinical Impression: Anxiety, Encounter for medication refill Instructions Patient Instructions: Anxiety and Panic Attacks (Alternative Therapy) Discharge ED Provider: Shoshana Meredith HPI General Chief Complaint: Anxiety Stated Complaint: Anxiety Time Seen by Provider: 01/17/22 14:49 Mode of Arrival: Ambulatory Source of Information: Patient Limitations: No Limitations Description of Symptoms (Recalled from ER Triage Doc. by RN): to ed per squad with c/o anxiety states out of meds since yesterday. 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 History of Present Illness HPI narrative: The patient is a 36-year-old male with a history of anxiety who presents with concern for panic attack. Patient states he feels like he is in another world . Denies any suicidal or homicidal ideations, no hallucinations. Patient states he has been out of his propanolol for the last 2 days and thinks that is why. He has a prescription and he has just not picked it up. No other complaints except for some very mild chest pain. Related Data Home Medications Medication Instructions Recorded Confirmed propranolol 20 mg tablet 20 mg PO BID UNKNOWN 08/19/20 06/19/21 Allergies Allergy/AdvReac Type Severity Reaction Status Date / Time codeine [CODEINE] Allergy Unknown Verified 07/02/18 19:58 Penicillins [PENICILLINS] Allergy Unknown Verified 07/02/18 19:58 [facility] Social History Smoking Status: Current every day smoker tobacco type: cigarettes packs per day: 1 second hand exposure: Yes alcohol intake: never current occupational status: unemployed Travel in the last 8 weeks: None ROS Obtained: Yes Systems reviewed as appropriate & no additional complaints except as documented Physical Exam General General appearance: alert, in no apparent distress and lethargic Head Head exam: atraumatic and normocephalic Eye Eye exam: Present normal appearance and EOMI ENT ENT exam: Present normal oropharynx and normal external ear exam Neck Neck exam: Present normal inspection and full ROM Chest Chest inspection: Present normal inspection and symmetric chest wall rise Respiratory Respiratory exam: Present normal lung sounds bilaterally; Absent respiratory distress Cardiovascular Cardiovascular exam: Present regular rate and normal rhythm Abdominal Exam Abdominal exam: Present soft; Absent distention Back Exam Back exam: Present normal inspection Neurological Exam Neurological exam: Present alert, oriented X3 and CN II-XII intact Psychiatric Psychiatric exam: Present normal affect and normal mood; Absent anxious Skin Skin exam: Present warm Medical Decision Making Medical Records Medical records reviewed: Yes I reviewed the patient's medical records. Sony Inquiry Pt receiving controlled substance: No Vital Signs: 01/17/22 14:41 01/17/22 16:00 Temperature 98.3 F 98.3 F Temperature Source Oral Oral Pulse Rate 72 Pulse Rate [Radial] 93 H Respiratory Rate 16 20 Blood Pressure 124/70 Blood Pressure [Right Arm] 122/70 Blood Pressure Mean [Right Arm] 87 Blood Pressure Position [Right Arm] Sitting 02 Sat by Pulse Oximetry 98 Oxygen Delivery Method Room Air Room Air Orders (Tests/Meds): ED MEDICATIONS Discontinued Medications Generic Name Dose Route Start Last Admin Trade Name Freq PRN Reason Stop Dose Admin Propranolol HCl 20 mg
== END 2022-01-17 16:05 | disposition home or self-care (01) ==
PROVIDERS: Emergency Provider Emergency Medicine; PCP Internal Medicine Adolescent Medicine
DX: F41.1 Generalized anxiety disorder (principal); R07.9 Chest pain, unspecified; F17.210 Nicotine dependence, cigarettes, uncomplicated; Z79.899 Other long term (current) drug therapy; Z88.0 Allergy status to penicillin; Z88.5 Allergy status to narcotic agent; T39.316A Underdosing of propionic acid derivatives, initial encounter; Z91.130 Patient's unintentional underdosing of medication regimen due to age-related debility
CPT/HCPCS: 99283

== ENCOUNTER 2022-04-13 16:53 | Emergency (ER) | payer OTHER, SELFPAY ==
[2022-04-13] VITALS (8 sets, daily range): BP systolic 121–169; BP diastolic 66–90; PULSE 61–120; RESP 16–18; TEMP 36.6–36.8; O2SAT 97–100; BMI 22.6
--- NOTE | 2022-04-13 16:59 | CT_ITS ---
PROCEDURE INFORMATION: Exam: CT Head Without Contrast Exam date and time: 04/13/2022 7:11 PM Age: 36 years old Clinical indication: Injury or trauma; Fall; Blunt trauma (contusions or hematomas); Consciousness not specified; Patient HX: Fell out of a tree; Additional info: Fall tree TECHNIQUE: Imaging protocol: Computed tomography of the head without contrast. Radiation optimization: All CT scans at this facility use at least one of these dose optimization techniques: automated exposure control; mA and/or kV adjustment per patient size (includes targeted exams where dose is matched to clinical indication); or iterative reconstruction. COMPARISON: CT HEAD/BRAIN WO CON 08/19/2020 4:44 PM FINDINGS: Brain: Low-density in the head of right caudate may be artifactual but is asymmetric and was not appreciated on the prior exam. Excessive patient motion limits the diagnostic capabilities of the study. Follow-up with sedation or possibly other modalities such as MRI. Cerebral ventricles: No ventriculomegaly. Paranasal sinuses: Visualized sinuses are unremarkable. No fluid levels. Mastoid air cells: Visualized mastoid air cells are well aerated. Bones/joints: Unremarkable. No acute fracture. Soft tissues: Unremarkable. IMPRESSION: Low-density in the head of right caudate may be artifactual but is asymmetric and was not appreciated on the prior exam. Excessive patient motion limits the diagnostic capabilities of the study. Follow-up with sedation or possibly other modalities such as MRI.
--- NOTE | 2022-04-13 16:59 | CT_ITS ---
PROCEDURE INFORMATION: Exam: CT Thoracic Spine Without Contrast Exam date and time: 04/13/2022 7:13 PM Age: 36 years old Clinical indication: Injury or trauma; Fall; Blunt trauma (contusions or hematomas); Patient HX: Fell out of a tree; Additional info: Fall tree TECHNIQUE: Imaging protocol: Computed tomography of the thoracic spine without contrast. Radiation optimization: All CT scans at this facility use at least one of these dose optimization techniques: automated exposure control; mA and/or kV adjustment per patient size (includes targeted exams where dose is matched to clinical indication); or iterative reconstruction. COMPARISON: CT CERVICAL SPINE WO CON 04/13/2022 7:11 PM FINDINGS: Bones/joints: No acute fracture. Normal alignment. No significant disc protrusion. No severe spinal canal stenosis. Soft tissues: Unremarkable. IMPRESSION: Unremarkable CT Spine.
--- NOTE | 2022-04-13 16:59 | XR_ITS ---
PROCEDURE INFORMATION: Exam: XR Chest Exam date and time: 04/13/2022 5:17 PM Age: 36 years old Clinical indication: Injury or trauma; Fall; Dislocation; Additional info: Fall from a tree TECHNIQUE: Imaging protocol: Radiologic exam of the chest. Views: 1 view. COMPARISON: CR XR CHEST PORTABLE 06/17/2021 8:48 PM FINDINGS: Lungs: Unremarkable. No consolidation. Pleural spaces: Unremarkable. No pleural effusion. No pneumothorax. Heart/Mediastinum: Unremarkable. No cardiomegaly. Bones/joints: There is dislocation of the left humeral head.. IMPRESSION: Dislocated left shoulder otherwise negative chest.
--- NOTE | 2022-04-13 16:59 | XR_ITS ---
PROCEDURE INFORMATION: Exam: XR Left Clavicle, Complete Exam date and time: 04/13/2022 5:17 PM Age: 36 years old Clinical indication: Injury or trauma; Fall; Dislocation; Severity not specified; Humerus, proximal end; Left; Additional info: Shoulder pain TECHNIQUE: Imaging protocol: Radiologic exam of the Left clavicle. Complete exam. Views: Any number of views. COMPARISON: CR XR CHEST PORTABLE 06/17/2021 8:48 PM FINDINGS: Bones/joints: Negative for clavicle fracture. Anterior dislocation left shoulder joint. Soft tissues: Normal. IMPRESSION: Negative for clavicle fracture.
--- NOTE | 2022-04-13 16:59 | XR_ITS ---
PROCEDURE INFORMATION: Exam: XR Left Shoulder Exam date and time: 04/13/2022 5:17 PM Age: 36 years old Clinical indication: Injury or trauma; Fall; Dislocation; Severity not specified; Humerus, proximal end; Left; Additional info: Fall from a tree TECHNIQUE: Imaging protocol: Radiologic exam of the Left shoulder. Views: 2 or more views. COMPARISON: CR XR CHEST PORTABLE 06/17/2021 8:48 PM FINDINGS: Bones/joints: There is anterior inferior dislocation of the humeral head in relation to the glenoid fossa. There is no underlying fracture appreciated. Remaining visualized osseous structures are intact. Soft tissues: Normal. IMPRESSION: Anterior inferior dislocation left shoulder joint.
--- NOTE | 2022-04-13 16:59 | CT_ITS ---
PROCEDURE INFORMATION: Exam: CT Lumbar Spine Without Contrast Exam date and time: 04/13/2022 7:15 PM Age: 36 years old Clinical indication: Injury or trauma; Fall; Blunt trauma (contusions or hematomas); Patient HX: Fell out of a tree. ; Additional info: Fall tree TECHNIQUE: Imaging protocol: Computed tomography of the lumbar spine without contrast. Radiation optimization: All CT scans at this facility use at least one of these dose optimization techniques: automated exposure control; mA and/or kV adjustment per patient size (includes targeted exams where dose is matched to clinical indication); or iterative reconstruction. COMPARISON: CR [id number] XR lumbar spine min 4V 09/14/2017 7:57 AM FINDINGS: Bones/joints: No acute fracture. Normal alignment. Mild degenerative disc/endplate changes L5-S1. No significant disc protrusion. No severe spinal canal stenosis. Soft tissues: 1 cm crescent-shaped calcification right renal hilum likely representing a nonobstructing stone.. IMPRESSION: No acute bony abnormalities..
--- NOTE | 2022-04-13 16:59 | CT_ITS ---
PROCEDURE INFORMATION: Exam: CT Cervical Spine Without Contrast Exam date and time: 04/13/2022 7:11 PM Age: 36 years old Clinical indication: Injury or trauma; Fall; Blunt trauma; Patient HX: Fell out of a tree. ; Additional info: Fall tree TECHNIQUE: Imaging protocol: Computed tomography of the cervical spine without contrast. Radiation optimization: All CT scans at this facility use at least one of these dose optimization techniques: automated exposure control; mA and/or kV adjustment per patient size (includes targeted exams where dose is matched to clinical indication); or iterative reconstruction. COMPARISON: CT HEAD/BRAIN WO CON 08/19/2020 4:44 PM FINDINGS: Bones/joints: Unremarkable alignment. No fracture or traumatic subluxation. Disk spaces are maintained. No severe spinal canal stenosis. Lungs: Lung apices are normal. Soft tissues: Unremarkable. IMPRESSION: No acute findings.
--- NOTE | 2022-04-13 17:00 | PC.NURSE ---
CONSENT SIGNED AT THIS TIME, PROCEDURE EXPLAINED PER DR. DENSON. PT V/U
--- NOTE | 2022-04-13 17:09 | PC.NURSE ---
XR AT BEDSIDE
--- NOTE | 2022-04-13 17:40 | PC.NURSE ---
PT REPORTS MORE COMFORTABLE AT THIS TIME
--- NOTE | 2022-04-13 18:05 | PC.NURSE ---
PT RESTING COMFORTABLY AT THIS TIME, UPDATED ON POC. NO NEEDS AT THIS TIME
--- NOTE | 2022-04-13 18:31 | PC.NURSE ---
4092 ED MD AT BEDSIDE TO EVALUATE PT, DOES NOT WANT TO CALL TRAUMA ALERT. ASSESSED BY MD. PT REFUSES TO WEAR C-COLLAR
--- NOTE | 2022-04-13 18:45 | PC.NURSE ---
ER at for procedure
--- NOTE | 2022-04-13 19:00 | PC.NURSE ---
1900 PT PLACED IN SLING, TOLERATED PROCEDURE WELL
--- NOTE | 2022-04-13 19:01 | XR_ITS ---
PROCEDURE INFORMATION: Exam: XR Left Shoulder Exam date and time: 04/13/2022 6:58 PM Age: 36 years old Clinical indication: Injury or trauma; Fall; Blunt trauma (contusions or hematomas); Shoulder; Left; Additional info: Post reduction TECHNIQUE: Imaging protocol: Radiologic exam of the Left shoulder. Views: 1 view. COMPARISON: CR XR SHOULDER LT MIN 2V 04/13/2022 5:17 PM FINDINGS: Bones/joints: There is been successful reduction of left shoulder dislocation with restored anatomic alignment. No underlying fracture detected. Soft tissues: Normal. IMPRESSION: Successful reduction of left shoulder dislocation.
--- NOTE | 2022-04-13 19:06 | PC.NURSE ---
1906 PT TALKING ON PHONE, GIVEN ICE CHIPS
--- NOTE | 2022-04-13 19:08 | PC.NURSE ---
PT TO CT AT THIS TIME
--- NOTE | 2022-04-13 19:25 | PC.NURSE ---
PT RETURNED FROM CT AT THIS TIME
--- NOTE | 2022-04-13 19:28 | PC.NURSE ---
PT TALKING ON PHONE, NO NEEDS AT THIS TIME
--- NOTE | 2022-04-13 19:30 | HMH.EDGENADL ---
Discharge Plan Disposition Patient Disposition: Home, Self-Care Condition: Good Prescriptions Prescriptions: No Action propranolol 20 MG tablet 20 mg PO BID Referrals Follow up/Referrals: Janak Emmanuel MD [Primary Care Provider] - See instructions Clinical Impressions Clinical Impression: Dislocated shoulder Stand Alone Forms Stand Alone Forms: Work/School Release Instructions Patient Instructions: DI for Moderate Sedation, Moderate Sedation Discharge ED Provider: Concepcion Mayer Adult HPI General Chief complaint: Fall Stated complaint: left shoulder dislocation Time Seen by Provider: 04/13/22 17:00 Mode of Arrival: EMS Source of Information: Patient and EMS Limitations: No Limitations Description of Symptoms (Recalled from ER Triage Doc. by RN): FALL ABOUT 8-10 FEET WHILE CUTTING LIMBS, PAIN TO LEFT SHOULDER, DENIES LOC, NO PAIN ANYWHERE ELSE. PT REFUSES TO WEAR C-COLLAR History of Present Illness HPI narrative: Mr. Young is a 36 yo male w/ no significant PMH presenting to the ED for fall. Patient was working on cutting limbs from tree and fell 8 feet onto his left shoulder. He denies hitting head and -LOC. Patient refused to wear C collar en route. Patient reports isolated pain to the (L) shoulder and has obvious deformity, appears dislocated. Patient denies neck pain, back pain, chest pain, abdominal pain or other extremity pain. Patient denies numbness, weakness. No dizziness lightheaded or other concerns. No blood thinners. complaint: Fall, shoulder injury Onset (ago): minute(s) Location: upper extremity ((L) shoulder) Related Data Home Medications Medication Instructions Recorded Confirmed propranolol 20 mg tablet 20 mg PO BID UNKNOWN 08/19/20 06/19/21 Allergies Allergy/AdvReac Type Severity Reaction Status Date / Time codeine [CODEINE] Allergy Unknown Verified 07/02/18 19:58 Penicillins [PENICILLINS] Allergy Unknown Verified 07/02/18 19:58 [facility] Disclaimer: The information contained in this section may have been updated after the patient was seen, as this information can be updated by other users. Medical History (Updated 04/13/22 @ 20:59 by Paxton Whittington RN) No significant past medical history Family History (Updated 04/13/22 @ 19:14 by Perlita Luciano RN) Other No significant family history Social History (Updated 04/13/22 @ 19:14 by Perlita uLciano RN) Smoking Status: Current every day smoker tobacco type: cigarettes packs per day: 1 second hand exposure: Yes alcohol intake: never current occupational status: unemployed Travel in the last 8 weeks: None ROS Obtained: Yes All systems reviewed & no additional complaints except as documented Physical Exam General General appearance: alert and in distress (severe (L) shoulder pain) Head Head exam: atraumatic and normal inspection Eye Eye exam: Present normal appearance and EOMI ENT ENT exam: Present normal exam, normal oropharynx and mucous membranes moist Neck Neck exam: Present normal inspection and full ROM Chest Chest inspection: Present normal inspection and symmetric chest wall rise Respiratory Respiratory exam: Present normal lung sounds bilaterally Cardiovascular Cardiovascular exam: Present regular rate and normal heart sounds Abdominal Exam Abdominal exam: Present soft and normal bowel sounds Extremities Exam Extremities exam: Present other (Obvious deformity of left shoulder, neurovascularly intact) Back Exam Back exam: Present normal inspection and full ROM Neurological Exam Neurological exam: Present alert and oriented X3 Skin Skin exam: Present warm and normal color Medical Decision Making Medical Records Medical records reviewed: Yes I reviewed the patient's medical records. [employer] Inquiry Pt receiving controlled substance: No Vital Signs: 04/13/22 17:30 04/13/22 18:00 04/13/22 16:54 Temperature 98.0 F Temperature Source Oral Pulse Rate
--- NOTE | 2022-04-13 19:49 | CT_ITS ---
PROCEDURE INFORMATION: Exam: CT Head Without Contrast Exam date and time: 04/13/2022 7:59 PM Age: 36 years old Clinical indication: Injury or trauma; Fall; Blunt trauma (contusions or hematomas); Additional info: Fall tree TECHNIQUE: Imaging protocol: Computed tomography of the head without contrast. Radiation optimization: All CT scans at this facility use at least one of these dose optimization techniques: automated exposure control; mA and/or kV adjustment per patient size (includes targeted exams where dose is matched to clinical indication); or iterative reconstruction. COMPARISON: CT HEAD/BRAIN WO CON 04/13/2022 7:11 PM FINDINGS: Brain: Normal. No hemorrhage. No mass effect. Cortical sulci and white matter are unremarkable for age Cerebral ventricles: No ventriculomegaly. Paranasal sinuses: Visualized sinuses are unremarkable. No fluid levels. Mastoid air cells: Visualized mastoid air cells are well aerated. Bones/joints: Unremarkable. Soft tissues: Unremarkable. IMPRESSION: Normal CT examination of the head.
== END 2022-04-13 20:58 | disposition home or self-care (01) ==
PROVIDERS: Emergency Provider Student in an Organized Health Care Education/Training Program; PCP Internal Medicine Adolescent Medicine
DX: S43.085A Other dislocation of left shoulder joint, initial encounter (principal); W17.89XA Other fall from one level to another, initial encounter; Y93.H2 Activity, gardening and landscaping; Y92.89 Other specified places as the place of occurrence of the external cause; Z88.0 Allergy status to penicillin; Z88.6 Allergy status to analgesic agent
CPT/HCPCS: 23655; 70450; 71045; 72125; 72128; 72131; 73000; 73020; 73030; 96365; 96375; 96376; 99285

== ENCOUNTER 2022-05-04 18:30 | Emergency (ER) | payer OTHER, SELFPAY ==
[2022-05-04 18:37] VITALS: BP 142/80; PULSE 112; RESP 20; TEMP 36.8; O2SAT 98; BMI 25.8
--- NOTE | 2022-05-04 18:38 | HMH.EDGENADL ---
Discharge Plan Disposition Patient Disposition: Home, Self-Care Condition: Good Chief Complaint: Anxiety Prescriptions Prescriptions: No Action propranolol 20 MG tablet 20 mg PO BID Referrals Follow up/Referrals: Janak Emmanuel MD [Primary Care Provider] - See instructions Activity Restrictions/Add. Instructions Additional Instructions/Restrictions: Follow-up with primary care provider for further care if symptoms persist or worsen. Clinical Impressions Clinical Impression: Marijuana intoxication Discharge ED Provider: Zach Lu General Adult HPI General Chief complaint: Anxiety Stated complaint: anxiety Time Seen by Provider: 05/04/22 18:31 History of Present Illness HPI narrative: Patient is brought in by ambulance. He states that he was feeling perfectly normal until he went to his ex-girlfriend's house and smoked something that was rolled in a white paper. He does not know what it was. Afterwards he began feeling numbness in his hands in his mouth. His mouth feels very dry. He feels disoriented and does not remember how he got home. He denies any other drug use. States he did not take any pills, drink any alcohol, snort anything, or inject anything. He states that he is on medications for anxiety, propanolol and citalopram. Related Data Home Medications Medication Instructions Recorded Confirmed propranolol 20 mg tablet 20 mg PO BID UNKNOWN 08/19/20 04/24/22 Allergies Allergy/AdvReac Type Severity Reaction Status Date / Time codeine [CODEINE] Allergy Unknown Verified 04/24/22 14:45 Penicillins [PENICILLINS] Allergy Unknown Verified 04/24/22 14:45 [facility] Disclaimer: The information contained in this section may have been updated after the patient was seen, as this information can be updated by other users. Medical History No significant past medical history Family History Other No significant family history Social History Smoking Status: Current every day smoker tobacco type: cigarettes packs per day: 1 second hand exposure: Yes alcohol intake: never current occupational status: unemployed Travel in the last 8 weeks: None ROS Obtained: Yes All systems reviewed & no additional complaints except as documented Constitutional Constitutional: Denies fever(s), Denies headache(s) and Denies weakness ENT Ears, Nose, Mouth, and Throat: Reports dry mouth, Denies headache(s), Denies nasal discharge and Denies sore throat Cardiovascular Cardiovascular: Denies chest pain Respiratory Respiratory: Denies shortness of breath and Denies cough Gastrointestinal Gastrointestingal: Denies abdominal pain, constipation, diarrhea or vomiting Genitourinary Male Genitourinary: Denies difficulty urinating and Denies flank pain Musculoskeletal Musculoskeletal: Reports tingling Neurologic Neurologic: Reports confusion, Denies headache(s), Reports tingling and Denies weakness Physical Exam General General appearance: alert, in no apparent distress and anxious Head Head exam: atraumatic and normocephalic Eye Eye exam: Present normal appearance and EOMI ENT ENT exam: Present mucous membranes moist Neck Neck exam: Present normal inspection and trachea midline Chest Chest inspection: Present normal inspection and symmetric chest wall rise Respiratory Respiratory exam: Present normal lung sounds bilaterally; Absent respiratory distress Cardiovascular Cardiovascular exam: Present regular rate, normal rhythm and normal heart sounds Abdominal Exam Abdominal exam: Present soft and normal bowel sounds; Absent distention, tenderness, guarding, rebound or rigidity Extremities Exam Extremities exam: Present normal inspection Neurological Exam Neurological exam: Present alert, oriented X3 and CN II-XII intact; Absent mo
[2022-05-04 18:54] VITALS: BP 156/96; PULSE 116; RESP 20; O2SAT 97
--- NOTE | 2022-05-04 18:57 | PC.NURSE ---
lab and urine sent to the lab
[2022-05-04 19:02] LABS: Basophils # 0.1 K/mm3 (0-0.2); Basophils % 0.7 % (0.1-2.0); Eosinophils # 0.3 K/mm3 (0.0-0.4); Eosinophils % 1.8 % (0.1-12.0); Hematocrit 51.5 % (42.0-52.0); Hemoglobin 16.6 g/dL (14.1-18.0); Lymphocytes # 2.2 K/mm3 (0.7-4.5); Mean Corpuscular HGB Conc 32.2 g/dL (31.8-35.4); Mean Corpuscular Hemoglobin 32.1 pg (27.0-31.2); Mean Corpuscular Volume 99.6 fl (80-94); Mean Platelet Volume 8.5 fl (7.4-10.4); Monocytes # 0.7 K/mm3 (0.1-1.0); Monocytes % 4.6 % (1.7-9.3); Neutrophils # 11.2 K/mm3 (1.8-7.8); Platelet Count 263 K/mm3 (142-424); Red Blood Count 5.17 M/mm3 (4.60-6.20); Red Cell Distribution Width 12.8 % (11.5-17.5); White Blood Count 14.4 K/mm3 (4.8-10.8)
[2022-05-04 19:09] LABS: Chloride 103 mmol/L (98-107); Potassium 3.7 mmoL/L (3.5-5.1); Sodium 140 mmol/L (136-145)
[2022-05-04 19:12] LABS: Alanine Aminotransferase 45 U/L (12-78); Albumin Level 4.4 g/dl (3.5-5.0); Albumin/Globulin Ratio 1.8 (1.1-1.8); Alkaline Phosphatase 86 U/L (38-126); Anion Gap 9.7 mEq/L (5-15); Aspartate Amino Transferase 28 U/L (17-59); Bilirubin,Total 1.1 mg/dl (0.2-1.3); Blood Urea Nitrogen 12 mg/dl (9-20); Carbon Dioxide 31 mmol/L (22.0-30.0); Creatinine Clearance Estimated 106 mL/min (50-200); Estimated Glomerular Filt Rate 85 ml/min (>60); GFR (African American) 103 ML/MIN (>60); Globulin 2.5 g/dL (1.3-3.2); Total Protein,Serum 6.9 g/dl (6.3-8.2)
[2022-05-04 19:13] LABS: Calcium 9.3 mg/dl (8.4-10.2); Ethyl Alcohol < 10 mg/dl (0-10); Glucose 136 mg/dl (74-100)
[2022-05-04 19:15] LABS: Benzodiazepines Screen,Urine Negative ng/ml (<200)
[2022-05-04 19:16] LABS: Amphetamine/Metha Screen,Urine Negative ng/ml (<1000); Barbiturates Screen,Urine Negative ng/ml (<200)
[2022-05-04 19:18] LABS: Cannabinoid Screen,Urine Positive ng/ml (<50); Methadone Screen,Urine Negative ng/ml (<300)
[2022-05-04 19:19] LABS: Cocaine Screen,Urine Negative ng/ml (<300); Opiate Screen,Urine Negative ng/ml (<300)
[2022-05-04 19:20] LABS: Phencyclidine Screen,Urine Negative ng/ml (<25)
[2022-05-04 19:52] VITALS: BP 147/78; PULSE 97; RESP 20; TEMP 36.8; O2SAT 97
== END 2022-05-04 19:53 | disposition home or self-care (01) ==
PROVIDERS: Emergency Provider Emergency Medicine; PCP Internal Medicine Adolescent Medicine
DX: F12.929 Cannabis use, unspecified with intoxication, unspecified (principal); R20.2 Paresthesia of skin; R51.9 Headache, unspecified; R68.2 Dry mouth, unspecified; F17.210 Nicotine dependence, cigarettes, uncomplicated; Z88.0 Allergy status to penicillin; Z88.5 Allergy status to narcotic agent
CPT/HCPCS: 80053; 80305; 85025; 99283

== ENCOUNTER 2022-05-04 20:34 | Emergency (ER) | payer OTHER, SELFPAY ==
--- NOTE | 2022-05-04 20:31 | ECG_ITS ---
APPROVED REPORT Exam: Resting ECG HR:96 bpm ECG Measurements Heart Rate 96 AXES PA 149 P 70 QRSd 88 QRS 62 QT 302 T 68 QTc 356 Conclusion SINUS RHYTHM WITH OCCASIONAL VENTRICULAR PREMATURE COMPLEXES POSSIBLE RIGHT VENTRICULAR CONDUCTION DELAY [RSR (QR) IN V1/V2] BORDERLINE ECG UNCONFIRMED REPORT Electronically signed by : Janak Emmanuel MD 05/05/2022 11:11:34
[2022-05-04 20:34] VITALS: BP 123/66; PULSE 107; RESP 16; TEMP 36.6; O2SAT 97; BMI 22.6
--- NOTE | 2022-05-04 21:01 | PC.NURSE ---
pt refused chest xray
[2022-05-04 21:03] LABS: Basophils # 0.1 K/mm3 (0-0.2); Basophils % 0.7 % (0.1-2.0); Eosinophils # 0.1 K/mm3 (0.0-0.4); Eosinophils % 0.7 % (0.1-12.0); Lymphocytes # 1.2 K/mm3 (0.7-4.5); Lymphocytes % 9.8 % (10-50); Mean Corpuscular HGB Conc 32.6 g/dL (31.8-35.4); Mean Corpuscular Hemoglobin 32.2 pg (27.0-31.2); Mean Corpuscular Volume 98.5 fl (80-94); Mean Platelet Volume 8.4 fl (7.4-10.4); Monocytes # 0.6 K/mm3 (0.1-1.0); Monocytes % 4.9 % (1.7-9.3); Neutrophils % 83.8 % (37.0-80.0); Platelet Count 268 K/mm3 (142-424); Red Blood Count 5.28 M/mm3 (4.60-6.20); Red Cell Distribution Width 12.8 % (11.5-17.5); White Blood Count 11.9 K/mm3 (4.8-10.8)
[2022-05-04 21:08] LABS: Alanine Aminotransferase 45 U/L (12-78); Albumin Level 4.5 g/dl (3.5-5.0); Albumin/Globulin Ratio 1.6 (1.1-1.8); Alkaline Phosphatase 85 U/L (38-126); Anion Gap 9.7 mEq/L (5-15); Aspartate Amino Transferase 34 U/L (17-59); Bilirubin,Total 1.1 mg/dl (0.2-1.3); Blood Urea Nitrogen 12 mg/dl (9-20); Calcium 9.4 mg/dl (8.4-10.2); Carbon Dioxide 29 mmol/L (22.0-30.0); Chloride 105 mmol/L (98-107); Creatinine Clearance Estimated 93 mL/min (50-200); Estimated Glomerular Filt Rate 85 ml/min (>60); GFR (African American) 103 ML/MIN (>60); Globulin 2.8 g/dL (1.3-3.2); Glucose 117 mg/dl (74-100); Potassium 3.7 mmoL/L (3.5-5.1); Sodium 140 mmol/L (136-145); Total Protein,Serum 7.3 g/dl (6.3-8.2)
[2022-05-04 21:21] LABS: Troponin I < 0.01 ng/ml (0.00-0.034)
--- NOTE | 2022-05-04 21:31 | HMH.EDANX ---
Discharge Plan Disposition Patient Disposition: Home, Self-Care Chief Complaint: Anxiety Prescriptions Prescriptions: No Action propranolol 20 MG tablet 20 mg PO BID Referrals Follow up/Referrals: Janak Emmanuel MD [Primary Care Provider] - See instructions Clinical Impressions Clinical Impression: Chest pain Instructions Patient Instructions: Anxiety Disorders Discharge ED Provider: Mazin Hartmann HPI General Chief Complaint: Anxiety Stated Complaint: chest pain Time Seen by Provider: 05/04/22 21:00 Mode of Arrival: Ambulatory Source of Information: Patient and Medical Record Limitations: No Limitations Description of Symptoms (Recalled from ER Triage Doc. by RN): pt c/o midsternal chest pain. pt arrived mono rom the ER ad fell to the floor and stated he was having chest pain and was brought back. pt has a hx of anxiety and states that what this feels like. pt also c/o dry mouth History of Present Illness HPI narrative: episode of chest pain tonight - now resolved with hx of anxiety - recent ed visit earlier - no recent viral illness , no fever, rash or trauma - no known ht dis MD complaint: anxiety Onset (ago): hour(s) Symptoms: chest pain Severity: mild Quality: intermittent Place: home History of similar episodes: Yes Associated symptoms: denies other symptoms Related Data Home Medications Medication Instructions Recorded Confirmed propranolol 20 mg tablet 20 mg PO BID UNKNOWN 08/19/20 04/24/22 Allergies Allergy/AdvReac Type Severity Reaction Status Date / Time codeine [CODEINE] Allergy Unknown Verified 04/24/22 14:45 Penicillins [PENICILLINS] Allergy Unknown Verified 04/24/22 14:45 [facility] Disclaimer: The information contained in this section may have been updated after the patient was seen, as this information can be updated by other users. Medical History No significant past medical history Family History Other No significant family history Social History Smoking Status: Current every day smoker tobacco type: cigarettes packs per day: 1 second hand exposure: Yes alcohol intake: never current occupational status: unemployed Travel in the last 8 weeks: None ROS Obtained: Yes All systems reviewed & no additional complaints except as documented Physical Exam General General appearance: alert Head Head exam: normocephalic Eye Eye exam: Present PERRL and EOMI ENT ENT exam: Present mucous membranes moist Neck Neck exam: Present trachea midline Respiratory Respiratory exam: Present normal lung sounds bilaterally; Absent respiratory distress Cardiovascular Cardiovascular exam: Present regular rate; Absent systolic murmur or rubs Abdominal Exam Abdominal exam: Present soft Extremities Exam Extremities exam: Present full ROM Neurological Exam Neurological exam: Present alert, oriented X3 and CN II-XII intact Psychiatric Psychiatric exam: Present normal affect Skin Skin exam: Absent rash Medical Decision Making Medical Records Medical records reviewed: Yes I reviewed the patient's medical records. [employer] Inquiry Pt receiving controlled substance: No Vital Signs: 05/04/22 20:34 Temperature 97.9 F Temperature Source Oral Pulse Rate [Left] 107 H Respiratory Rate 16 Blood Pressure [Right Arm] 123/66 Blood Pressure Mean [Right Arm] 85 02 Sat by Pulse Oximetry 97 Oxygen Delivery Method Room Air Lab Data Lab results reviewed: Yes I reviewed the patient's lab results. Lab Results 05/04/22 20:36: WBC 11.9 H, RBC 5.28, Hgb 17.0, Hct 52.0, MCV 98.5 H, MCH 32.2 H, MCHC 32.6, RDW 12.8, Plt Count 268, MPV 8.4, Neut % (Auto) 83.8 H, Lymph % (Auto) 9.8 L, Floyd % (Auto) 4.9, Eos % (Auto) 0.7, Baso % (Auto) 0.7, Neut # (Auto) 10.0 H, Lymph # (Auto) 1.2, Floyd # (Auto) 0.6,
[2022-05-04 21:55] VITALS: BP 115/78; PULSE 104; RESP 16; TEMP 36.6; O2SAT 97
== END 2022-05-04 22:05 | disposition home or self-care (01) ==
PROVIDERS: Emergency Provider Emergency Medicine; PCP Internal Medicine Adolescent Medicine
DX: R07.2 Precordial pain (principal); R68.2 Dry mouth, unspecified; F41.9 Anxiety disorder, unspecified; F17.210 Nicotine dependence, cigarettes, uncomplicated; Z88.0 Allergy status to penicillin; Z88.5 Allergy status to narcotic agent
CPT/HCPCS: 80053; 84484; 85025; 93005; 99284

== ENCOUNTER 2022-08-09 16:27 | Emergency (ER) | payer OTHER, SELFPAY ==
[2022-08-09 16:31] VITALS: BP 155/85; PULSE 95; RESP 16; TEMP 36.7; O2SAT 98; BMI 29.0
--- NOTE | 2022-08-09 16:48 | HMH.EDGENADL ---
Discharge Plan Disposition Patient Disposition: Home, Self-Care Prescriptions Prescriptions: No Action propranolol 20 MG tablet 20 mg PO BID Referrals Follow up/Referrals: Janak Emmanuel MD [Primary Care Provider] - See instructions Clinical Impressions Clinical Impression: Syncope Instructions Patient Instructions: DI for Syncope in Adults (Fainting) Discharge ED Provider: Homero Leyva General Adult HPI General Chief complaint: Fall Stated complaint: headache/dizziness Time Seen by Provider: 08/09/22 16:40 Mode of Arrival: EMS Source of Information: Patient Limitations: No Limitations Description of Symptoms (Recalled from ER Triage Doc. by RN): pt comes in for fall that happened last night. pt was talking to brother in law and fell. pt reports that he did LOC, and has since had continued headache. pt was evaluated by ems last night but refused transport. pt also reports pain in middle of back. History of Present Illness HPI narrative: Patient is a 36-year-old male with no pertinent past medical history who presents with concern for a fall. He says that last night he started to feel dizzy and subsequently syncopized. He reports that his family said that he was out for approximately 1 minute prior to waking back up. He says that he was evaluated by EMS at that time but did not come to the ED at that time. He says that today he still feels a little off and that his head and his neck are bothering him today. Denies any numbness or tingling to his extremities. Denies any bowel or bladder incontinence. Denies any saddle anesthesia. Denies any chest or abdominal pain. Denies any shortness of breath. Related Data Home Medications Medication Instructions Recorded Confirmed propranolol 20 mg tablet 20 mg PO BID UNKNOWN 08/19/20 04/24/22 Allergies Allergy/AdvReac Type Severity Reaction Status Date / Time codeine [CODEINE] Allergy Unknown Verified 04/24/22 14:45 Penicillins [PENICILLINS] Allergy Unknown Verified 04/24/22 14:45 [facility] Disclaimer: The information contained in this section may have been updated after the patient was seen, as this information can be updated by other users. Medical History No significant past medical history Family History Other No significant family history Social History Smoking Status: Current every day smoker tobacco type: cigarettes packs per day: 1 second hand exposure: Yes alcohol intake: never current occupational status: unemployed Travel in the last 8 weeks: None ROS Obtained: Yes All systems reviewed & no additional complaints except as documented Physical Exam General General appearance: alert and in no apparent distress Head Head exam: atraumatic, normocephalic and normal inspection Eye Eye exam: Present normal appearance and PERRL ENT ENT exam: Present normal exam, mucous membranes moist and normal external ear exam Neck Neck exam: Present normal inspection, trachea midline and tenderness Chest Chest inspection: Present normal inspection and symmetric chest wall rise Respiratory Respiratory exam: Present normal lung sounds bilaterally; Absent respiratory distress Cardiovascular Cardiovascular exam: Present regular rate and normal rhythm Abdominal Exam Abdominal exam: Present soft; Absent distention, tenderness or guarding Extremities Exam Extremities exam: Present normal inspection; Absent edema Neurological Exam Neurological exam: Present alert and oriented X3 Psychiatric Psychiatric exam: Present normal affect and normal mood Skin Skin exam: Present warm, dry, intact and normal color Medical Decision Making Medical Records Medical records reviewed: Yes I reviewed the patient's medical records. [employer] Inquiry Pt receiving controlled substance: No V
--- NOTE | 2022-08-09 16:51 | CT_ITS ---
PROCEDURE INFORMATION: Exam: CT Head Without Contrast Exam date and time: 08/09/2022 5:02 PM Age: 36 years old Clinical indication: Syncope and collapse; Additional info: Syncope- fall TECHNIQUE: Imaging protocol: Computed tomography of the head without contrast. Radiation optimization: All CT scans at this facility use at least one of these dose optimization techniques: automated exposure control; mA and/or kV adjustment per patient size (includes targeted exams where dose is matched to clinical indication); or iterative reconstruction. REPORTING DATA: Count of CT and Cardiac NM exams in prior 12 months: This patient has received 6 known CTs and 0 known cardiac nuclear medicine studies in the 12 months prior to the current study. COMPARISON: CT HEAD/BRAIN WO CON 04/13/2022 7:59 PM FINDINGS: Brain: No acute intracranial findings. No intracranial hemorrhage. No edema, swelling or mass-effect. No significant white matter disease. Minimal chronic meningeal calcification. Cerebral ventricles: The ventricles are normal for age. No hydrocephalus. Paranasal sinuses: No acute findings in the visualized sinuses. No significant sinus opacification or air-fluid levels. Minimal ethmoid mucosal thickening. Mastoid air cells: Mastoids are unremarkable as visualized, no effusions. Orbital cavities: No acute intraorbital findings, as visualized. Bones/joints: No acute skull fracture. No lytic lesions. Soft tissues: There are no soft tissue masses or loculated fluid collections. IMPRESSION: 1. No acute intracranial injury or skull fracture. Brain appears unchanged compared with 04/13/2022. 2. There is no CT evidence of intracranial mass, intracranial hemorrhage, or acute infarct. 3. Additional nonemergency and chronic findings as above.
--- NOTE | 2022-08-09 16:51 | CT_ITS ---
PROCEDURE INFORMATION: Exam: CT Cervical Spine Without Contrast Exam date and time: 08/09/2022 5:05 PM Age: 36 years old Clinical indication: Injury or trauma; Fall; Blunt trauma; Additional info: Fall- syncope with collapse TECHNIQUE: Imaging protocol: Computed tomography of the cervical spine without contrast. Radiation optimization: All CT scans at this facility use at least one of these dose optimization techniques: automated exposure control; mA and/or kV adjustment per patient size (includes targeted exams where dose is matched to clinical indication); or iterative reconstruction. REPORTING DATA: Count of CT and Cardiac NM exams in prior 12 months: This patient has received 6 known CTs and 0 known cardiac nuclear medicine studies in the 12 months prior to the current study. COMPARISON: CT CERVICAL SPINE WO CON 04/13/2022 7:11 PM, prior report not available FINDINGS: Bones/joints: No acute fracture or significant listhesis. Slightly straightened cervical lordosis suggests muscle spasm. Mild chronic degenerative osteoarthrosis anteriorly C1-C2 with periarticular spurs and mild sclerosis. Multilevel mild facet arthropathy, greatest on the right at C2-C3 through C5-C6.There are no lytic skeletal lesions seen. Discs minimally indent the thecal sac throughout. No large disc protrusion. Minimal spinal canal narrowing. No high-grade spinal stenosis. Mild degenerative narrowing of the right C3 neural foramen and moderate stenosis of the right C6 foramen due to lateral uncovertebral spurs. No severe foraminal stenoses Lungs: No acute findings in the visualized lung apices. 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 Soft tissues: No acute findings in the paraspinous soft tissues. No prevertebral swelling. IMPRESSION: 1. No acute fracture or listhesis. 2. Cervical muscle spasm. 3. Mild degenerative changes as above. No severe spinal or foraminal stenoses.
--- NOTE | 2022-08-09 16:52 | ECG_ITS ---
APPROVED REPORT Exam: Resting ECG HR:88 bpm ECG Measurements Heart Rate 88 AXES MD 141 P 64 QRSd 94 QRS 44 QT 331 T 60 QTc 377 Conclusion SINUS RHYTHM POSSIBLE RIGHT VENTRICULAR CONDUCTION DELAY [RSR (QR) IN V1/V2] BORDERLINE ECG UNCONFIRMED REPORT Electronically signed by : Janak Emmanuel MD 08/10/2022 15:44:36
[2022-08-09 16:59] LABS: Basophils # 0.1 K/mm3 (0-0.2); Basophils % 0.7 % (0.1-2.0); Eosinophils # 0.2 K/mm3 (0.0-0.4); Eosinophils % 1.5 % (0.1-12.0); Hematocrit 52.2 % (42.0-52.0); Hemoglobin 16.5 g/dL (14.1-18.0); Lymphocytes # 1.2 K/mm3 (0.7-4.5); Mean Corpuscular HGB Conc 31.5 g/dL (31.8-35.4); Mean Corpuscular Hemoglobin 31.7 pg (27.0-31.2); Mean Corpuscular Volume 100.6 fl (80-94); Mean Platelet Volume 8.5 fl (7.4-10.4); Monocytes # 0.5 K/mm3 (0.1-1.0); Monocytes % 4.6 % (1.7-9.3); Neutrophils # 9.2 K/mm3 (1.8-7.8); Neutrophils % 82.1 % (37.0-80.0); Platelet Count 264 K/mm3 (142-424); Red Blood Count 5.19 M/mm3 (4.60-6.20); Red Cell Distribution Width 12.7 % (11.5-17.5); White Blood Count 11.2 K/mm3 (4.8-10.8)
[2022-08-09 17:00] LABS: Chloride 105 mmol/L (98-107)
[2022-08-09 17:01] LABS: Potassium 3.7 mmoL/L (3.5-5.1); Sodium 139 mmol/L (136-145)
[2022-08-09 17:03] LABS: Alanine Aminotransferase 17 U/L (12-78); Alkaline Phosphatase 79 U/L (38-126); Aspartate Amino Transferase 27 U/L (17-59); Bilirubin,Total 1.1 mg/dl (0.2-1.3); Blood Urea Nitrogen 8 mg/dl (9-20); Creatinine Clearance Estimated 132 mL/min (50-200); Estimated Glomerular Filt Rate 96 ml/min (>60); GFR (African American) 116 ML/MIN (>60)
[2022-08-09 17:04] LABS: Albumin Level 4.1 g/dl (3.5-5.0); Albumin/Globulin Ratio 1.7 (1.1-1.8); Anion Gap 7.7 mEq/L (5-15); Calcium 8.7 mg/dl (8.4-10.2); Carbon Dioxide 30 mmol/L (22.0-30.0); Globulin 2.4 g/dL (1.3-3.2); Glucose 140 mg/dl (74-100); Total Protein,Serum 6.5 g/dl (6.3-8.2)
--- NOTE | 2022-08-09 17:05 | PC.NURSE ---
pt at xray
[2022-08-09 17:15] VITALS: PULSE 93; O2SAT 100
[2022-08-09 17:17] LABS: Troponin I < 0.01 ng/ml (0.00-0.034)
[2022-08-09 17:30] VITALS: BP 129/88; PULSE 103; O2SAT 98
[2022-08-09 17:55] VITALS: BP 129/88; PULSE 88; RESP 17; TEMP 36.7; O2SAT 98
[2022-08-09 18:00] VITALS: BP 147/82; PULSE 102; O2SAT 98
[2022-08-09 18:30] VITALS: BP 141/86; PULSE 100; O2SAT 99
== END 2022-08-09 18:58 | disposition home or self-care (01) ==
PROVIDERS: Emergency Provider Student in an Organized Health Care Education/Training Program; PCP Internal Medicine Adolescent Medicine
DX: R51.9 Headache, unspecified (principal); R55 Syncope and collapse
CPT/HCPCS: 70450; 72125; 80053; 84484; 85025; 93005; 96360; 99285

== ENCOUNTER 2022-10-12 19:43 | Emergency (ER) | payer OTHER, SELFPAY ==
--- NOTE | 2022-10-12 19:36 | HMH.EDGENADL ---
Discharge Plan Disposition Patient Disposition: Home, Self-Care Condition: Good Chief Complaint: Headache Prescriptions Prescriptions: No Action propranolol 20 MG tablet 20 mg PO BID Referrals Follow up/Referrals: Janak Emmanuel MD [Primary Care Provider] - See instructions Activity Restrictions/Add. Instructions Additional Instructions/Restrictions: You have been evaluated for headache. Work-up today is quite reassuring. Your potassium was slightly low. Make sure you are eating a balanced diet. Okay to take Tylenol or Motrin for pain. Keep a headache journal. Follow-up with your primary care doctor in 1 to 2 days for symptom recheck. Return to the emergency department for any new or worsening symptoms, headache, vision changes, any other concerns Clinical Impressions Clinical Impression: Acute tension headache Instructions Patient Instructions: DI for Headache Discharge ED Provider: Mallory Ch Adult HPI General Chief complaint: Headache Stated complaint: RAMIREZ Time Seen by Provider: 10/12/22 19:44 Mode of Arrival: EMS Source of Information: Patient Limitations: No Limitations History of Present Illness HPI narrative: 37-year-old male presenting to the emergency department with headache. Headache started a couple of hours ago. He got an argument with a family member. Says he was frustrated. He then developed a headache that was described as on both sides, in the front. Described as aching, pounding. Headache came on gradually. Has simply not gotten any better. He has not taken any medications yet for the pain. Denies sensitivity to lights or sounds. No neck pain. No recent illness, fevers, chills, cough, shortness of breath, nausea, vomiting. He has had headaches like this before in the past. Has not sought medical attention. Related Data Home Medications Medication Instructions Recorded Confirmed propranolol 20 mg tablet 20 mg PO BID UNKNOWN 08/19/20 04/24/22 Allergies Allergy/AdvReac Type Severity Reaction Status Date / Time codeine [CODEINE] Allergy Unknown Verified 10/12/22 19:47 Penicillins [PENICILLINS] Allergy Unknown Verified 10/12/22 19:47 [facility] Disclaimer: The information contained in this section may have been updated after the patient was seen, as this information can be updated by other users. Medical History No significant past medical history Family History Other No significant family history Social History Smoking Status: Current every day smoker tobacco type: cigarettes packs per day: 1 second hand exposure: Yes alcohol intake: never current occupational status: unemployed Travel in the last 8 weeks: None ROS Obtained: Yes All systems reviewed & no additional complaints except as documented Constitutional Constitutional: Denies body ache, Denies chills, Reports headache(s) and Denies weakness Eyes Eyes: Denies blurry vision and Denies loss of vision ENT Ears, Nose, Mouth, and Throat: Denies disequilibrium, Denies dizziness, Reports headache(s) and Denies neck pain Cardiovascular Cardiovascular: Denies chest pain, Denies dyspnea and Denies palpitations Respiratory Respiratory: Denies cough and Denies dyspnea Gastrointestinal Gastrointestingal: Denies nausea or vomiting Musculoskeletal Musculoskeletal: Denies back pain and Denies neck pain Integumentary/Breasts Skin/Breast: Denies redness, Denies rash and Denies wounds Neurologic Neurologic: Denies disequilibrium, Denies dizziness, Reports headache(s), Denies loss of vision and Denies weakness Endocrine Endocrine: Denies palpitations Physical Exam General General appearance: alert and in no apparent distress Head Head exam: atraumatic and normocephalic Eye Eye exam: Present normal appearance and conjunct
[2022-10-12 19:39] VITALS: BP 152/88; PULSE 95; RESP 18; TEMP 36.4; O2SAT 97; BMI 25.8
--- NOTE | 2022-10-12 19:41 | CT_ITS ---
PROCEDURE INFORMATION: Exam: CT Head Without Contrast Exam date and time: 10/12/2022 7:54 PM Age: 37 years old Clinical indication: Pain; Headache; Additional info: Headache, ich suspected TECHNIQUE: Imaging protocol: Computed tomography of the head without contrast. Radiation optimization: All CT scans at this facility use at least one of these dose optimization techniques: automated exposure control; mA and/or kV adjustment per patient size (includes targeted exams where dose is matched to clinical indication); or iterative reconstruction. REPORTING DATA: Count of CT and Cardiac NM exams in prior 12 months: This patient has received 7 known CTs and 0 known cardiac nuclear medicine studies in the 12 months prior to the current study. COMPARISON: CT HEAD/BRAIN WO CON 08/09/2022 5:02 PM FINDINGS: Brain: No acute infarct. No hemorrhage. Unremarkable white matter for age. No mass effect. Cerebral ventricles: No ventriculomegaly. Paranasal sinuses: Visualized sinuses are unremarkable. No fluid levels. Mastoid air cells: Visualized mastoid air cells are well aerated. Bones/joints: Unremarkable. No acute fracture. Soft tissues: Unremarkable. IMPRESSION: No acute intracranial abnormality.
[2022-10-12 19:55] LABS: Basophils % 0.4 % (0.1-2.0); Chloride 102 mmol/L (98-107); Eosinophils # 0.2 K/mm3 (0.0-0.4); Eosinophils % 2.3 % (0.1-12.0); Hematocrit 53.9 % (42.0-52.0); Lymphocytes % 21.5 % (10-50); Mean Corpuscular HGB Conc 31.5 g/dL (31.8-35.4); Mean Corpuscular Hemoglobin 31.4 pg (27.0-31.2); Mean Corpuscular Volume 99.7 fl (80-94); Mean Platelet Volume 8.6 fl (7.4-10.4); Monocytes # 0.6 K/mm3 (0.1-1.0); Monocytes % 6.6 % (1.7-9.3); Neutrophils # 6.4 K/mm3 (1.8-7.8); Neutrophils % 69.1 % (37.0-80.0); Platelet Count 220 K/mm3 (142-424); Red Blood Count 5.41 M/mm3 (4.60-6.20); Red Cell Distribution Width 12.4 % (11.5-17.5); Sodium 137 mmol/L (136-145); White Blood Count 9.3 K/mm3 (4.8-10.8)
[2022-10-12 19:56] LABS: Potassium 3.3 mmoL/L (3.5-5.1)
[2022-10-12 19:58] LABS: Alanine Aminotransferase 20 U/L (12-78); Albumin Level 4.2 g/dl (3.5-5.0); Alkaline Phosphatase 83 U/L (38-126); Aspartate Amino Transferase 25 U/L (17-59); Bilirubin,Total 2.7 mg/dl (0.2-1.3); Blood Urea Nitrogen 9 mg/dl (9-20); Creatinine Clearance Estimated 116 mL/min (50-200); Estimated Glomerular Filt Rate 95 ml/min (>60); GFR (African American) 116 ML/MIN (>60); Total Protein,Serum 6.6 g/dl (6.3-8.2)
[2022-10-12 19:59] LABS: Albumin/Globulin Ratio 1.8 (1.1-1.8); Anion Gap 11.3 mEq/L (5-15); Carbon Dioxide 27 mmol/L (22.0-30.0); Globulin 2.4 g/dL (1.3-3.2); Glucose 96 mg/dl (74-100)
[2022-10-12 21:16] VITALS: BP 139/86; PULSE 87; RESP 16; TEMP 36.4
== END 2022-10-12 21:26 | disposition home or self-care (01) ==
PROVIDERS: Emergency Provider Emergency Medicine; PCP Internal Medicine Adolescent Medicine
DX: R51.9 Headache, unspecified (principal); F17.210 Nicotine dependence, cigarettes, uncomplicated
CPT/HCPCS: 70450; 80053; 85025; 96374; 99284; 99285

== ENCOUNTER 2022-11-25 15:04 | Emergency (ER) | payer OTHER, SELFPAY ==
[2022-11-25 15:04] VITALS: BP 133/70; PULSE 98; RESP 16; TEMP 36.6; O2SAT 100; BMI 29.0
--- NOTE | 2022-11-25 15:12 | ECG_ITS ---
APPROVED REPORT Exam: Resting ECG HR:93 bpm ECG Measurements Heart Rate 93 AXES AZ 140 P 82 QRSd 89 QRS 77 QT 327 T 78 QTc 378 Conclusion SINUS RHYTHM Left atrial abnormality MODERATE ST DEPRESSION [0.05+ mV ST DEPRESSION] ABNORMAL ECG UNCONFIRMED REPORT Electronically signed by : Janak Emmanuel MD 11/26/2022 21:19:16
--- NOTE | 2022-11-25 15:24 | XR_ITS ---
FINAL REPORT CLINICAL HISTORY: syncope COMPARISON: 04/13/2022 FINDINGS: A single PA view of the chest was obtained. The cardiac and mediastinal silhouettes are within normal limits. The lungs are clear. There is no effusion or pneumothorax. IMPRESSION: No radiographic evidence of acute cardiac or pulmonary disease on this single view of the chest. Reviewed, Interpreted and Dictated by Radha Rudolph MD Transcribed by Carmen Jara Authenticated and . [facility]
--- NOTE | 2022-11-25 15:25 | HMH.EDGENADL ---
Discharge Plan Disposition Patient Disposition: Home, Self-Care Condition: Good Prescriptions Prescriptions: No Action propranolol 20 MG tablet 20 mg PO BID Referrals Follow up/Referrals: Provider,Referral, MD [Primary Care Provider] - See instructions Activity Restrictions/Add. Instructions Additional Instructions/Restrictions: At this time was felt you are safe to be discharged home. For new or worsening symptoms please not hesitate to return the emergency department. Today you likely had an episode of vasovagal syncope. For multitude of reasons people get this when blood flow is limited to the brain for transient amount of time causing him to be lightheaded and passed out. If you have recurrent multiple episodes of passing out, passing out at rest, please return for continued evaluation or follow-up with your family doctor. Clinical Impressions Clinical Impression: Syncope, vasovagal Instructions Patient Instructions: DI for Syncope in Adults (Fainting) Discharge ED Provider: Alli Guerra General Adult HPI General Chief complaint: Syncope Stated complaint: Syncope Time Seen by Provider: 11/25/22 15:15 Mode of Arrival: Ambulatory Source of Information: Patient Limitations: No Limitations Description of Symptoms (Recalled from ER Triage Doc. by RN): Presents to ED for a syncopal episode that occured at approx. 1400. Patient reports getting into it with his boss and started having severe anxiety and passed out. Denies hitting his head. Does report hx of syncope. Currently lightheaded but no other complaints at this time. History of Present Illness HPI narrative: Patient is a 37-year-old male with past medical history of vascular reconstruction in his childhood resulting to the left carotid supplying majority of blood in his brain, no other past medical history, no chronic deficits at baseline who presents emergency department for evaluation of syncope. History is obtained by patient at bedside. He states that he is under a tremendous amount of stress and got into it with his boss this morning. Subsequently he was at home when he arose from a seated position rapidly, had tunnel vision, and ultimately passed out on the floor. He awoke and called 911. Patient denies hitting his head, denies traumatic complaints. No other acute complaints at this time. Related Data Home Medications Medication Instructions Recorded Confirmed propranolol 20 mg tablet 20 mg PO BID UNKNOWN 08/19/20 04/24/22 Allergies Allergy/AdvReac Type Severity Reaction Status Date / Time codeine [CODEINE] Allergy Unknown Verified 10/12/22 19:47 Penicillins [PENICILLINS] Allergy Unknown Verified 10/12/22 19:47 [facility] Disclaimer: The information contained in this section may have been updated after the patient was seen, as this information can be updated by other users. Medical History No significant past medical history Family History Other No significant family history Social History Smoking Status: Current every day smoker tobacco type: cigarettes packs per day: 1 second hand exposure: Yes alcohol intake: never current occupational status: unemployed Travel in the last 8 weeks: None ROS Obtained: Yes Systems reviewed as appropriate & no additional complaints except as documented Physical Exam General General appearance: alert and in no apparent distress Head Head exam: atraumatic and normocephalic Eye Eye exam: Present PERRL and EOMI ENT ENT exam: Present mucous membranes moist Neck Neck exam: Present normal inspection and full ROM Chest Chest inspection: Present normal inspection and symmetric chest wall rise Respiratory Respiratory exam: Present normal lung sounds bilaterally; Absent respiratory distress Cardiovascular Cardi
[2022-11-25 16:12] VITALS: BP 120/66; PULSE 90; RESP 18; TEMP 36.7; O2SAT 98
== END 2022-11-25 16:15 | disposition home or self-care (01) ==
PROVIDERS: Emergency Provider Emergency Medicine
DX: R55 Syncope and collapse (principal); F17.210 Nicotine dependence, cigarettes, uncomplicated
CPT/HCPCS: 71045; 93005; 99284

== ENCOUNTER 2022-11-27 13:52 | Emergency (ER) | payer OTHER, SELFPAY ==
[2022-11-27 13:52] VITALS: BP 123/70; PULSE 83; RESP 18; TEMP 36.6; O2SAT 97; BMI 25.8
--- NOTE | 2022-11-27 14:07 | EXP.UTC ---
Discharge Plan Disposition Patient Disposition: Home, Self-Care Condition: Good Prescriptions Prescriptions: No Action propranolol 20 MG tablet 20 mg PO BID Referrals Follow up/Referrals: Janak Emmanuel MD [Primary Care Provider] - See instructions Activity Restrictions/Add. Instructions Additional Instructions/Restrictions: Follow up with your regular doctor. GO TO THE ER FOR ANY WORSENING SYMPTOMS Clinical Impressions Clinical Impression: Encounter for assessment of STD exposure Instructions Patient Instructions: Facts About Sexually Transmitted Infections Discharge ED Provider: Chad Sue [facility] [place] General Stated complaint: STD check Time Seen by Provider: 11/27/22 14:07 History of Present Illness Provider Complaint: He is concerned that he may have been exposed to an std when he had unprotected sex about 2 months ago. He denies any symptoms. Related Data Home Medications Medication Instructions Recorded Confirmed propranolol 20 mg tablet 20 mg PO BID UNKNOWN 08/19/20 04/24/22 Allergies Allergy/AdvReac Type Severity Reaction Status Date / Time codeine [CODEINE] Allergy Unknown Verified 10/12/22 19:47 Penicillins [PENICILLINS] Allergy Unknown Verified 10/12/22 19:47 [facility] Disclaimer: The information contained in this section may have been updated after the patient was seen, as this information can be updated by other users. Medical History No significant past medical history Family History Other No significant family history Social History Smoking Status: Current every day smoker tobacco type: cigarettes packs per day: 1 second hand exposure: Yes alcohol intake: never current occupational status: unemployed Travel in the last 8 weeks: None ROS Obtained: Yes All systems reviewed & no additional complaints except as documented Constitutional Constitutional: Denies chills and Denies fever(s) Eyes Eyes: Denies eye discharge ENT Ears, Nose, Mouth, and Throat: Denies dizziness, Denies otalgia and Denies sore throat Cardiovascular Cardiovascular: Denies chest pain Respiratory Respiratory: Denies shortness of breath, Denies chest congestion, Denies cough, Denies stridor and Denies wheezing Gastrointestinal Gastrointestingal: Denies nausea or vomiting Musculoskeletal Musculoskeletal: Reports system reviewed and no additional complaints, except as documented and Denies arthralgias Integumentary/Breasts Skin/Breast: Denies rash Neurologic Neurologic: Denies dizziness and Denies paresthesias Allergic/Immunologic Allergic/Immunologic: Denies wheezing Physical Exam General General appearance: alert and in no apparent distress Head Head exam: atraumatic, normocephalic and normal inspection Eye Eye exam: Present normal appearance, PERRL and EOMI ENT ENT exam: Present normal exam, normal oropharynx, mucous membranes moist, TM's normal bilaterally and normal external ear exam Neck Neck exam: Present normal inspection, full ROM and trachea midline; Absent meningismus or lymphadenopathy Chest Chest inspection: Present normal inspection and symmetric chest wall rise; Absent tenderness Respiratory Respiratory exam: Present normal lung sounds bilaterally; Absent respiratory distress Cardiovascular Cardiovascular exam: Present regular rate and normal rhythm; Absent JVD Abdominal Exam Abdominal exam: Present soft and normal bowel sounds; Absent distention, tenderness or guarding Extremities Exam Extremities exam: Present normal inspection, full ROM and normal capillary refill; Absent calf tenderness Back Exam Back exam: Present normal inspection; Absent tenderness Neurological Exam Neurological exam: Present alert and oriented X3 Psychiatric Psychiatric exam: Present normal affect and normal mood Skin Skin exam:
[2022-11-27 14:49] VITALS: BP 123/70; PULSE 83; RESP 18; TEMP 36.6; O2SAT 97
[2022-11-29 09:14] LABS: HBsAg Screen Negative (Negative); HCV Ab Non Reactive (Non Reactive); HIV Screen 4th Generation wRfx Non Reactive (Non Reactive); Hep A Ab, IGM Negative (Negative); Hep B Core Ab, IgM Negative (Negative); Rapid Plasma Reagin Ab Titer Non Reactive (NonRea<1:1)
[2022-12-01 09:15] LABS: Neisseria gonorrhoeae, NAA Negative (Negative)
== END 2022-11-27 14:50 | disposition home or self-care (01) ==
PROVIDERS: Emergency Provider Nurse Practitioner Family; PCP Internal Medicine Adolescent Medicine
DX: Z20.2 Contact with and (suspected) exposure to infections with a predominantly sexual mode of transmission (principal); F17.210 Nicotine dependence, cigarettes, uncomplicated
CPT/HCPCS: 80074; 86593; 86703; 87086; 87491; 87591; 99212; G0432; G0463

== ENCOUNTER 2022-12-04 17:37 | Emergency (ER) | payer OTHER, SELFPAY ==
[2022-12-04 17:37] VITALS: BP 152/66; PULSE 103; RESP 19; TEMP 37.1; O2SAT 97; BMI 29.0
[2022-12-04 17:41] VITALS: PULSE 107; O2SAT 96
--- NOTE | 2022-12-04 17:42 | ECG_ITS ---
APPROVED REPORT Exam: Resting ECG HR:100 bpm ECG Measurements Heart Rate 100 AXES CA 144 P 67 QRSd 89 QRS 61 QT 307 T 69 QTc 364 Conclusion SINUS TACHYCARDIA ABNORMAL RHYTHM ECG UNCONFIRMED REPORT Electronically signed by : Janak Emmanuel MD 12/05/2022 16:17:08
[2022-12-04 18:00] VITALS: BP 136/111; PULSE 106; O2SAT 97
[2022-12-04 18:23] VITALS: BP 145/60; PULSE 98; O2SAT 98
[2022-12-04 18:30] VITALS: BP 132/72; PULSE 102; O2SAT 99
--- NOTE | 2022-12-04 18:49 | HMH.EDGENADL ---
Discharge Plan Disposition Patient Disposition: Home, Self-Care Condition: Good Prescriptions Prescriptions: No Action propranolol 20 MG tablet 20 mg PO BID Referrals Follow up/Referrals: Provider,Referral, MD [Primary Care Provider] - See instructions Clinical Impressions Clinical Impression: Near syncope Stand Alone Forms Stand Alone Forms: Work/School Release Instructions Patient Instructions: DI for Syncope in Adults (Fainting), DI for Syncope in Children (Fainting) Discharge ED Provider: Eben Herrera General Adult HPI General Chief complaint: Syncope Stated complaint: anxiety Time Seen by Provider: 12/04/22 17:38 Mode of Arrival: EMS Source of Information: Patient Limitations: No Limitations Description of Symptoms (Recalled from ER Triage Doc. by RN): c/o neck pain, lower back pain and passing out. Pt states that he got into an argument about girlfriend getting fired and she broke up with him, states he passed out. Has a hx of passing out in stressful situations. Mild middle chest pain. History of Present Illness HPI narrative: This is a 37-year-old male with history of anxiety and syncope, polysubstance abuse presenting with syncopal episode in the setting of anxiety. Patient states that his significant other lost her job, she took it out on him, he had a panic attack and woke up on the floor. Thinks he lowered himself to the floor, but is not sure. Having mild paraspinal back pain without neurologic deficits. Denies bowel or bladder dysfunction, nausea or vomiting, diaphoresis, shortness of breath, but was having mild chest pain during the episode. Not currently having chest pain and largely baseline other than back pain. Related Data Home Medications Medication Instructions Recorded Confirmed propranolol 20 mg tablet 20 mg PO BID UNKNOWN 08/19/20 04/24/22 Allergies Allergy/AdvReac Type Severity Reaction Status Date / Time codeine [CODEINE] Allergy Unknown Verified 10/12/22 19:47 Penicillins [PENICILLINS] Allergy Unknown Verified 10/12/22 19:47 [facility] Disclaimer: The information contained in this section may have been updated after the patient was seen, as this information can be updated by other users. Medical History No significant past medical history Family History Other No significant family history Social History Smoking Status: Current every day smoker tobacco type: cigarettes packs per day: 1 second hand exposure: Yes alcohol intake: never current occupational status: unemployed Travel in the last 8 weeks: None ROS Obtained: Yes All systems reviewed & no additional complaints except as documented Physical Exam General General appearance: alert, in no apparent distress and other ( ) Head Head exam: atraumatic and normocephalic Eye Eye exam: Present normal appearance, PERRL and EOMI ENT ENT exam: Present mucous membranes moist Neck Neck exam: Present normal inspection, full ROM and trachea midline Respiratory Respiratory exam: Absent respiratory distress, wheezes, stridor, accessory muscle use or prolonged expiratory phase Cardiovascular Cardiovascular exam: Present regular rate and normal rhythm Abdominal Exam Abdominal exam: Present soft; Absent distention, tenderness, guarding, rebound, rigidity or normal bowel sounds Extremities Exam Extremities exam: Absent edema Back Exam Back exam: Present paraspinal tenderness; Absent vertebral tenderness Neurological Exam Neurological exam: Present alert, oriented X3, CN II-XII intact and normal gait; Absent motor sensory deficit Skin Skin exam: Present warm and dry; Absent diaphoresis or erythema Medical Decision Making Medical Records Medical records reviewed: Yes I reviewed the patient's medical records. Sony Abbasi Pt receiving controlle
[2022-12-04 18:59] VITALS: BP 132/72; PULSE 104; RESP 16; TEMP 36.6; O2SAT 98
== END 2022-12-04 19:00 | disposition home or self-care (01) ==
PROVIDERS: Emergency Provider Emergency Medicine
DX: R55 Syncope and collapse (principal); R07.9 Chest pain, unspecified; M54.2 Cervicalgia; M54.50 Low back pain, unspecified; F17.210 Nicotine dependence, cigarettes, uncomplicated
CPT/HCPCS: 93005; 99284

== ENCOUNTER 2023-05-07 15:04 | Emergency (ER) | payer OTHER, SELFPAY ==
[2023-05-07 15:04] VITALS: BP 141/73; PULSE 92; RESP 16; TEMP 36.9; O2SAT 97; BMI 25.8
--- NOTE | 2023-05-07 15:26 | HMH.EDGENADL ---
Discharge Plan Disposition Patient Disposition: Home, Self-Care Prescriptions Prescriptions: No Action propranolol 20 MG tablet 20 mg PO BID Referrals Follow up/Referrals: Provider,Referral, MD [Primary Care Provider] - See instructions Activity Restrictions/Add. Instructions Additional Instructions/Restrictions: Clinical concern for an intracranial injury that would require neurosurgical intervention no CAT scan was therefore performed. Return with any worsening symptoms tetanus vaccination was given to you today and Dermabond was placed on your wound which should fall off in 1 to 2 weeks. Please take Tylenol and/or ibuprofen as needed for your symptoms and return with any other concerns. Clinical Impressions Clinical Impression: Forehead laceration, Concussion Discharge ED Provider: Kayla Gamble General Adult HPI General Chief complaint: Headache Stated complaint: headache Time Seen by Provider: 05/07/23 15:11 Mode of Arrival: EMS Source of Information: Patient Limitations: No Limitations Description of Symptoms (Recalled from ER Triage Doc. by RN): c/o headache and abrasion on forhead, pt states that he is under alot of stress and hit his head against a drywall wall due to anger causing the abrasion and headache. Denies any LOC or other injuries at this time, denies any SI or HI. History of Present Illness HPI narrative: Patient is a 37-year-old male presenting today with a forehead laceration and minor head injury. States that he got evicted from his home tells me that he was walking very aggressively in an agitated manner and accidentally walked into the wall. To me he adamantly denies intentionally hitting his head on the wall or any desire to harm self states he has no desire to harm himself or had no intention to kill himself. Denies any neck pain. Does have a minor headache no changes in mental status denies any focal deficits. He is not on any anticoagulation or antiplatelet agents. Not up-to-date on tetanus. Related Data Home Medications Medication Instructions Recorded Confirmed propranolol 20 mg tablet 20 mg PO BID UNKNOWN 08/19/20 04/24/22 Allergies Allergy/AdvReac Type Severity Reaction Status Date / Time codeine [CODEINE] Allergy Unknown Verified 10/12/22 19:47 Penicillins [PENICILLINS] Allergy Unknown Verified 10/12/22 19:47 [facility] Disclaimer: The information contained in this section may have been updated after the patient was seen, as this information can be updated by other users. Medical History No significant past medical history Family History Other No significant family history Social History Smoking Status: Current every day smoker tobacco type: cigarettes packs per day: 1 second hand exposure: Yes alcohol intake: never current occupational status: unemployed Travel in the last 8 weeks: None ROS Obtained: Yes All systems reviewed & no additional complaints except as documented Physical Exam General General appearance: alert Head Head exam: other (There is a 1 cm very well-approximated and superficial vertical laceration on the forehead there is no Michaels sign raccoon eyes or depressible fracture) Neck Neck exam: Present normal inspection; Absent tenderness Respiratory Respiratory exam: Present normal lung sounds bilaterally; Absent respiratory distress Cardiovascular Cardiovascular exam: Present regular rate; Absent tachycardia Abdominal Exam Abdominal exam: Present soft; Absent tenderness Neurological Exam Neurological exam: Present alert, oriented X3, CN II-XII intact and normal gait; Absent motor sensory deficit Medical Decision Making Sony Inquiry Pt receiving controlled substance: No Vital Signs: 05/07/23 15:04 Temperature 98.5 F Temperature Source Oral Pulse Rate [Left Radial] 92 H Respiratory Rate 16 Blood Pressure [Right Arm] 141/73 H Blood Pressure Mean [Right Arm] 95 Blood Pressure Source [Right Arm] Automatic Cuff Blood Pressure Position [Right Arm] Sitting 02 Sat by Pulse Oximetry 97 Oxygen Delivery Method Room Air Orders (Tests/Meds): ED MEDICATIONS Generic Name Dose Route Start Last Admin Trade Name Candelario PRN Reason Stop Dose Admin Acetaminophen 1,000 mg 05/07/23 15:23 Acetaminophen 500mg Tab PO 05/07/23 15:24 ONCE ONE Ibuprofen 800 mg 05/07/23 15:23 Ibuprofen 400 Mg Tablet PO 05/07/23 15:24 ONCE ONE Tetanus/Reduced Diphtheria/Acell Pertussis 0.5 ml 05/07/23 15:23 Tet/Diphth/Pert-Adult 0.5ml Syringe IM 05/07/23 15:24 .ONCE ONE Medical Decision Narrative: Is a 37-year-old male with a minor head injury I do not suspect any ongoing self-harm ideation suicidal ideation or suicidal attempt associated with this. Seems as he was extremely stressed out 2 different stories were told to S1 to the nurses stating that he intentionally hit himself in the head and he told me that that was not the case and the accidentally walked into the wall. Will not discuss further with psychiatry at this point. Tetanus was updated. Laceration closed with Dermabond. He is [place] CT head negative and Nexus negative no indication for any CT imaging of his head or his neck I discussed with him return precautions regarding this and he understood that the harm of radiation outweighs any benefit to radiation exposure and CT imaging at this point and he understood and is agreeable to this plan. Tylenol and ibuprofen were administered he was given supportive care instructions and return precautions and discharged in a stable condition. Procedures Laceration Laceration 1: Site: scalp (frontal scalp line/forehead ) Size (cm): 1 Description: linear Depth: simple, single layer Skin layer closed with: Dermabond Critical Care Critical Care Time Critical Care Time: No
[2023-05-07] MEDS: ACETAMINOPHEN 500MG TAB 1000 MG PO (15:37)
[2023-05-07] MEDS: IBUPROFEN 400 MG TABLET 800 MG PO (15:37)
[2023-05-07 16:13] VITALS: BP 137/87; PULSE 80; RESP 20; TEMP 36.8; O2SAT 98
== END 2023-05-07 16:14 | disposition home or self-care (01) ==
PROVIDERS: Emergency Provider Student in an Organized Health Care Education/Training Program; PCP Internal Medicine Adolescent Medicine
DX: S06.0X0A Concussion without loss of consciousness, initial encounter (principal); R51.9 Headache, unspecified; S01.81XA Laceration without foreign body of other part of head, initial encounter; F17.210 Nicotine dependence, cigarettes, uncomplicated; W22.09XA Striking against other stationary object, initial encounter
CPT/HCPCS: 12001; 90471; 99283

== ENCOUNTER 2023-09-13 21:11 | Emergency (ER) | payer OTHER, SELFPAY ==
--- NOTE | 2023-09-13 21:00 | ECG_ITS ---
APPROVED REPORT Exam: Resting ECG HR:97 bpm ECG Measurements Heart Rate 97 AXES SD 141 P 79 QRSd 94 QRS 71 QT 319 T 73 QTc 373 Conclusion SINUS RHYTHM POSSIBLE RIGHT VENTRICULAR CONDUCTION DELAY [RSR (QR) IN V1/V2] BORDERLINE ECG Electronically signed by : ERICA MOBLEY, 09/13/2023 22:01:20
[2023-09-13 21:12] VITALS: BP 161/85; PULSE 97; RESP 20; TEMP 37.1; O2SAT 97; BMI 29.0
[2023-09-13 21:20] VITALS: PULSE 97
--- NOTE | 2023-09-13 21:20 | XR_ITS ---
PROCEDURE INFORMATION: Exam: XR Chest Exam date and time: 09/13/2023 9:38 PM Age: 37 years old Clinical indication: Pain; Chest pressure; Additional info: Chest pain TECHNIQUE: Imaging protocol: Radiologic exam of the chest. Views: 1 view. COMPARISON: CR XR CHEST PORTABLE 11/25/2022 3:34 PM FINDINGS: Lungs: No evidence of acute pulmonary disease or infiltrates Pleural spaces: No large effusion or pneumothorax. Heart/Mediastinum: No evidence of mediastinal widening or cardiac silhouette enlargement; the mediastinum and heart appear within normal limits for contour and size. Bones/joints: No evidence of acute osseous abnormalities within the visualized portions of the thoracic spine and ribs. Osseous structures appear appropriate for patient age. IMPRESSION: No dense parenchymal consolidation, pleural effusion, or pneumothorax.
--- NOTE | 2023-09-13 21:20 | HMH.EDGENADL ---
Discharge Plan Disposition Patient Disposition: Home, Self-Care Condition: Good Prescriptions Prescriptions: No Action propranolol 20 MG tablet 20 mg PO BID Referrals Follow up/Referrals: Provider,Referral, [Referring] - See instructions Activity Restrictions/Add. Instructions Additional Instructions/Restrictions: Follow-up with your PCP as scheduled. Please fill your propranolol. Please schedule follow-up with cardiology. Return to the emergency department as needed for any worsening signs or symptoms. Clinical Impressions Clinical Impression: Chest pain Discharge ED Provider: Susannah Daniel General Adult HPI <RENO Ortiz - Last Filed: 09/13/23 22:23> General Chief complaint: Chest Pain Stated complaint: CP Time Seen by Provider: 09/13/23 21:19 Mode of Arrival: Ambulatory Source of Information: Patient Limitations: No Limitations Description of Symptoms (Recalled from ER Triage Doc. by RN): pt cc is midsternal chest pain that has been going on for two days, radiates into left shoulder, pt also complains of headache and it is stabbing in nature. pt states he had heart and lung surgery as a baby but no other hx History of Present Illness HPI narrative: Patient presents for evaluation of 2 days of intermittent substernal chest pain that radiates to the left shoulder. Patient reports that he was homeless but working and is having a lot of stressors in his personal life. Patient states that he has chest pain when he is stressed or angry . Patient has been out of his blood pressure medication for some time due to social issues as well. He currently reports his chest pain is a 1 out of 10 no shortness of breath fever chills hemoptysis hematochezia melena nausea vomit diarrhea. Related Data Home Medications Medication Instructions Recorded Confirmed propranolol 20 mg tablet 20 mg PO BID UNKNOWN 08/19/20 04/24/22 Allergies Allergy/AdvReac Type Severity Reaction Status Date / Time codeine [CODEINE] Allergy Unknown Verified 10/12/22 19:47 Penicillins [PENICILLINS] Allergy Unknown Verified 10/12/22 19:47 PFS <RENO Ortiz - Last Filed: 09/13/23 22:23> [facility] Disclaimer: The information contained in this section may have been updated after the patient was seen, as this information can be updated by other users. Medical History No significant past medical history Family History Other No significant family history Social History Smoking Status: Current every day smoker tobacco type: cigarettes packs per day: 1 second hand exposure: Yes alcohol intake: never current occupational status: unemployed Travel in the last 8 weeks: None <RENO Ortiz - Last Filed: 09/13/23 22:23> ROS Obtained: Yes Systems reviewed as appropriate & no additional complaints except as documented Physical Exam <RENO Ortiz - Last Filed: 09/13/23 22:23> General General appearance: alert and in no apparent distress Head Head exam: atraumatic and normal inspection Eye Eye exam: Present normal appearance, PERRL and EOMI ENT ENT exam: Present normal exam, normal oropharynx and mucous membranes moist Neck Neck exam: Present normal inspection, full ROM and trachea midline; Absent lymphadenopathy Chest Chest inspection: Present normal inspection and symmetric chest wall rise Respiratory Respiratory exam: Present normal lung sounds bilaterally; Absent accessory muscle use Cardiovascular Cardiovascular exam: Present regular rate, normal rhythm, normal heart sounds, +S1 and +S2 Abdominal Exam Abdominal exam: Present soft and normal bowel sounds; Absent tenderness, guarding or rebound Extremities Exam Extremities exam: Present normal inspection and full ROM Back Exam Back exam: Present normal inspection and full ROM; Absent tenderness Neurological Exam Neurological exam: Present alert, oriented X3 and CN II-XII intact Psychiatric Psychiatric exam: Present normal affect and normal mood Skin Skin exam: Present warm, dry and normal color Medical Decision Making <RENO Ortiz - Last Filed: 09/13/23 22:23> Medical Records Medical records reviewed: Yes I reviewed the patient's medical records. Sony Inquiry Pt receiving controlled substance: No Vital Signs: 09/13/23 21:12 09/13/23 21:20 09/13/23 21:30 Temperature 98.8 F Temperature Source Oral Pulse Rate 97 H 96 H Pulse Rate [Right Radial] 97 H Respiratory Rate 20 12 Blood Pressure 149/66 H Blood Pressure [Right Arm] 161/85 H Blood Pressure Mean [Right Arm] 110 02 Sat by Pulse Oximetry 97 97 Oxygen Delivery Method Room Air Lab Data Lab results reviewed: Yes I reviewed the patient's lab results. Lab Results 09/13/23 21:10: WBC 9.8, RBC 5.16, Hgb 17.0, Hct 51.4, MCV 99.6 H, MCH 32.9 H, MCHC 33.1, RDW 13.4, Plt Count 230, MPV 8.2, Neut % (Auto) 76.8, Lymph % (Auto) 15.0, [place] % (Auto) 6.3, Eos % (Auto) 1.2, Baso % (Auto) 0.7, Neut # (Auto) 7.5, Lymph # (Auto) 1.5, [place] # (Auto) 0.6, Eos # (Auto) 0.1, Baso # (Auto) 0.1, PT 11.2, INR 1.04, Sodium 140, Potassium 3.5, Chloride 106, Carbon Dioxide 32 H, Anion Gap 5.5, BUN 8 L, Creatinine 0.90, Estimated Creat Clear 131, Estimated GFR 95, Est GFR ( Amer) 116, Glucose 100, Calcium 9.6, Total Bilirubin 1.8 H, AST 36, ALT 19, Alkaline Phosphatase 75, Troponin I < 0.01, Total Protein 6.8, Albumin 4.3, Globulin 2.5, Albumin/Globulin Ratio 1.7, TSH 1.18 09/13/23 21:10 09/13/23 21:10 Orders (Tests/Meds): ED MEDICATIONS Discontinued Medications Generic Name Dose Route Start Last Admin Trade Name Freq PRN Reason Stop Dose Admin Acetaminophen 1,000 mg 09/13/23 21:20 09/13/23 21:37 Acetaminophen 1,000mg/100ml Vial IV 09/13/23 21:21 1,000 mg ONCE ONE Administration Diphenhydramine HCl 50 mg 09/13/23 21:55 09/13/23 22:02 Diphenhydramine 50mg/Ml Vial IV 09/13/23 21:56 50 mg ONCE ONE Administration Lactated Ringer's 1,000 mls @ 999 mls/hr 09/13/23 21:20 09/13/23 21:37 Lactated Ringer's 1000 Ml Bag IV 09/13/23 22:20 999 mls/hr .Q1H1M ONE Administration Ketorolac Tromethamine 15 mg 09/13/23 21:20 09/13/23 21:37 Ketorolac 30mg/Ml Vial IV 09/13/23 21:21 15 mg ONCE ONE Administration Prochlorperazine Edisylate 10 mg 09/13/23 21:55 09/13/23 22:02 Prochlorperazine 10mg/2ml Vial IV 09/13/23 21:56 10 mg ONCE ONE Administration ORDERS Category Date Time Status Chest XR -- portable [XR chest portable] Stat Exams 09/13/23 21:20 Taken CBC w/Auto Diff [Complete Blood Count Auto Diff] Stat Lab 09/13/23 21:10 Completed CMP [Comprehensive Metabolic Panel] Stat Lab 09/13/23 21:10 Completed INR [Prothrombin Time INR] Stat Lab 09/13/23 21:10 Completed TSH [Thyroid Stimulating Hormone] Stat Lab 09/13/23 21:10 Completed Trop I [Troponin I] Stat Lab 09/13/23 21:10 Completed Troponin I Q3H Lab 09/14/23 00:30 Ordered Troponin I Q3H Lab 09/14/23 03:30 Ordered UA [Urinalysis and Microscopic] Stat Lab 09/13/23 21:25 Ordered HEART Score History (anamnesis): Slightly suspicious ECG: Non-specific disturbance Age: <45 years Risk factors: 3 or more risk factors Troponin: </= normal limit HEART Score: 3 Medical Decision Narrative: In summary patient is a 37-year-old male who presents to the emergency department for evaluation of chest pain. Patient is hemodynamically stable upon arrival, afebrile. Physical exam is unremarkable and nonfocal. Differential diagnosis includes ACS versus PE versus anxiety versus gastroenteritis etc. Initial workup will be conducted with twelve-lead EKG plain film chest x-ray hematologic labs. Initial interventions include crystalloid bolus Toradol Tylenol Benadryl Compazine. Initial workup reviewed by me shows his hematologic labs are nonactionable and his plain film chest x-ray via my informal interpretation shows no acute processes.. Upon repeat evaluation patient has acceptable resolution of pain. Given this plan for discharge with follow-up with his circulation worker to see Dr. Degroot or return to ER as needed <Susannah Daniel MD - Last Filed: 09/13/23 22:26> Vital Signs: 09/13/23 21:12 09/13/23 21:20 09/13/23 21:30 Temperature 98.8 F Temperature Source Oral Pulse Rate 97 H 96 H Pulse Rate [Right Radial] 97 H Respiratory Rate 20 12 Blood Pressure 149/66 H Blood Pressure [Right Arm] 161/85 H Blood Pressure Mean [Right Arm] 110 02 Sat by Pulse Oximetry 97 97 Oxygen Delivery Method Room Air Lab Data Lab Results 09/13/23 21:10: WBC 9.8, RBC 5.16, Hgb 17.0, Hct 51.4, MCV 99.6 H, MCH 32.9 H, MCHC 33.1, RDW 13.4, Plt Count 230, MPV 8.2, Neut % (Auto) 76.8, Lymph % (Auto) 15.0, [place] % (Auto) 6.3, Eos % (Auto) 1.2, Baso % (Auto) 0.7, Neut # (Auto) 7.5, Lymph # (Auto) 1.5, [place] # (Auto) 0.6, Eos # (Auto) 0.1, Baso # (Auto) 0.1, PT 11.2, INR 1.04, Sodium 140, Potassium 3.5, Chloride 106, Carbon Dioxide 32 H, Anion Gap 5.5, BUN 8 L, Creatinine 0.90, Estimated Creat Clear 131, Estimated GFR 95, Est GFR ( Amer) 116, Glucose 100, Calcium 9.6, Total Bilirubin 1.8 H, AST 36, ALT 19, Alkaline Phosphatase 75, Troponin I < 0.01, Total Protein 6.8, Albumin 4.3, Globulin 2.5, Albumin/Globulin Ratio 1.7, TSH 1.18 Orders (Tests/Meds): ED MEDICATIONS Discontinued Medications Generic Name Dose Route Start Last Admin Trade Name Freq PRN Reason Stop Dose Admin Acetaminophen 1,000 mg 09/13/23 21:20 09/13/23 21:37 Acetaminophen 1,000mg/100ml Vial IV 09/13/23 21:21 1,000 mg ONCE ONE Administration Diphenhydramine HCl 50 mg 09/13/23 21:55 09/13/23 22:02 Diphenhydramine 50mg/Ml Vial IV 09/13/23 21:56 50 mg ONCE ONE Administration Lactated Ringer's 1,000 mls @ 999 mls/hr 09/13/23 21:20 09/13/23 21:37 Lactated Ringer's 1000 Ml Bag IV 09/13/23 22:20 999 mls/hr .Q1H1M ONE Administration Ketorolac Tromethamine 15 mg 09/13/23 21:20 09/13/23 21:37 Ketorolac 30mg/Ml Vial IV 09/13/23 21:21 15 mg ONCE ONE Administration Prochlorperazine Edisylate 10 mg 09/13/23 21:55 09/13/23 22:02 Prochlorperazine 10mg/2ml Vial IV 09/13/23 21:56 10 mg ONCE ONE Administration ORDERS Category Date Time Status Chest XR -- portable [XR chest portable] Stat Exams 09/13/23 21:20 Taken CBC w/Auto Diff [Complete Blood Count Auto Diff] Stat Lab 09/13/23 21:10 Completed CMP [Comprehensive Metabolic Panel] Stat Lab 09/13/23 21:10 Completed INR [Prothrombin Time INR] Stat Lab 09/13/23 21:10 Completed TSH [Thyroid Stimulating Hormone] Stat Lab 09/13/23 21:10 Completed Trop I [Troponin I] Stat Lab 09/13/23 21:10 Completed Troponin I Q3H Lab 09/14/23 00:30 Ordered Troponin I Q3H Lab 09/14/23 03:30 Ordered UA [Urinalysis and Microscopic] Stat Lab 09/13/23 21:25 Ordered HEART Score HEART Score: 3 Medical Decision Narrative: In summary patient is a 37-year-old male who presents to the emergency department for evaluation of chest pain. Patient is hemodynamically stable upon arrival, afebrile. Physical exam is unremarkable and nonfocal. Differential diagnosis includes ACS versus PE versus anxiety versus gastroenteritis etc. Initial workup will be conducted with twelve-lead EKG plain film chest x-ray hematologic labs. Initial interventions include crystalloid bolus Toradol Tylenol Benadryl Compazine. Initial workup reviewed by me shows his hematologic labs are nonactionable and his plain film chest x-ray via my informal interpretation shows no acute processes.. Upon repeat evaluation patient has acceptable resolution of pain. Given this plan for discharge with follow-up with his circulation worker to see Dr. Degroot or return to ER as needed I was consulted by the NIKI, and we discussed the complexity of the problems being addressed. I approved the treatment and management plan for this patient's care in the Emergency Department, thus performing a substantive portion of the medical decision making. Susannah Daniel MD Critical Care <RENO Ortiz - Last Filed: 09/13/23 22:23> Critical Care Time Critical Care Time: No
[2023-09-13 21:30] VITALS: BP 149/66; PULSE 96; RESP 12; O2SAT 97
[2023-09-13 21:33] LABS: Chloride 106 mmol/L (98-107); Sodium 140 mmol/L (136-145)
[2023-09-13 21:34] LABS: Basophils # 0.1 K/mm3 (0-0.2); Basophils % 0.7 % (0.1-2.0); Eosinophils # 0.1 K/mm3 (0.0-0.4); Eosinophils % 1.2 % (0.1-12.0); Hematocrit 51.4 % (42.0-52.0); Lymphocytes # 1.5 K/mm3 (0.7-4.5); Mean Corpuscular HGB Conc 33.1 g/dL (31.8-35.4); Mean Corpuscular Hemoglobin 32.9 pg (27.0-31.2); Mean Corpuscular Volume 99.6 fl (80-94); Mean Platelet Volume 8.2 fl (7.4-10.4); Monocytes # 0.6 K/mm3 (0.1-1.0); Monocytes % 6.3 % (1.7-9.3); Neutrophils # 7.5 K/mm3 (1.8-7.8); Neutrophils % 76.8 % (37.0-80.0); Platelet Count 230 K/mm3 (142-424); Potassium 3.5 mmoL/L (3.5-5.1); Red Blood Count 5.16 M/mm3 (4.60-6.20); Red Cell Distribution Width 13.4 % (11.5-17.5); White Blood Count 9.8 K/mm3 (4.8-10.8)
[2023-09-13 21:36] LABS: Alanine Aminotransferase 19 U/L (12-78); Albumin Level 4.3 g/dl (3.5-5.0); Albumin/Globulin Ratio 1.7 (1.1-1.8); Alkaline Phosphatase 75 U/L (38-126); Aspartate Amino Transferase 36 U/L (17-59); Bilirubin,Total 1.8 mg/dl (0.2-1.3); Blood Urea Nitrogen 8 mg/dl (9-20); Creatinine Clearance Estimated 131 mL/min (50-200); Estimated Glomerular Filt Rate 95 ml/min (>60); GFR (African American) 116 ML/MIN (>60); Globulin 2.5 g/dL (1.3-3.2); Total Protein,Serum 6.8 g/dl (6.3-8.2)
[2023-09-13 21:37] LABS: Anion Gap 5.5 mEq/L (5-15); Calcium 9.6 mg/dl (8.4-10.2); Carbon Dioxide 32 mmol/L (22.0-30.0); Glucose 100 mg/dl (74-100); INR 1.04 (0.9-1.1); Prothrombin Time 11.2 seconds (10.1-12.5)
[2023-09-13] MEDS: KETOROLAC 30MG/ML VIAL 15 MG IV (21:37)
[2023-09-13] MEDS: ACETAMINOPHEN 1,000MG/100ML VIAL 1000 MG IV (21:37)
[2023-09-13] MEDS: LACTATED RINGERS 1000ML 1,000 ML 999 ML IV (21:37)
[2023-09-13 21:51] LABS: Troponin I < 0.01 ng/ml (0.00-0.034)
[2023-09-13] MEDS: diphenhydrAMINE 50MG/ML VIAL 50 MG IV (22:02)
[2023-09-13] MEDS: PROCHLORPERAZINE 10MG/2ML VIAL 10 MG IV (22:02)
[2023-09-13 22:08] LABS: Thyroid Stimulating Hormone 1.18 uIU/mL (0.465-4.68)
[2023-09-13 22:35] VITALS: BP 110/47; PULSE 87; RESP 18; TEMP 36.7; O2SAT 97
== END 2023-09-13 22:36 | disposition home or self-care (01) ==
PROVIDERS: Physician Assistant; Emergency Provider Emergency Medicine; PCP Internal Medicine Adolescent Medicine
DX: R07.89 Other chest pain (principal); F17.210 Nicotine dependence, cigarettes, uncomplicated; Z59.01 Sheltered homelessness
CPT/HCPCS: 71045; 80053; 84443; 84484; 85025; 85610; 93005; 96361; 96374; 96375; 99285; J0131

== ENCOUNTER 2023-10-18 16:16 | Emergency (ER) | payer SELFPAY ==
[2023-10-18 16:30] VITALS: BP 126/66; PULSE 78; O2SAT 95
[2023-10-18 16:36] VITALS: BP 146/82; PULSE 86; RESP 20; TEMP 36.8; O2SAT 97; BMI 25.8
--- NOTE | 2023-10-18 16:40 | PC.NURSE ---
called to get pt supper tray. pt given pillow and warm blanket and something to drink. call light within reach.
--- NOTE | 2023-10-18 16:46 | ECG_ITS ---
APPROVED REPORT Exam: Resting ECG HR:81 bpm ECG Measurements Heart Rate 81 AXES [place] 149 P 67 QRSd 94 QRS 62 QT 345 T 70 QTc 382 Conclusion SINUS RHYTHM NORMAL ECG Electronically signed by : DONOVAN NERI, 10/18/2023 23:24:38
--- NOTE | 2023-10-18 16:47 | HMH.EDGENADL ---
Discharge Plan Disposition Patient Disposition: Home, Self-Care Condition: Good Prescriptions Prescriptions: No Action propranolol 20 MG tablet 20 mg PO BID Referrals Follow up/Referrals: Provider,Referral, MD [Primary Care Provider] - See instructions Activity Restrictions/Add. Instructions Additional Instructions/Restrictions: Follow-up closely with primary care. Rest. Make sure to eat regular meals. Return to the emergency department for new or worsening symptoms. Clinical Impressions Clinical Impression: Fatigue Stand Alone Forms Stand Alone Forms: Work/School Release Instructions Patient Instructions: DI for Fatigue Discharge ED Provider: Bianca Holly General Adult HPI General Chief complaint: Weakness Stated complaint: weakness,tired,dizzy Time Seen by Provider: 10/18/23 16:16 Mode of Arrival: EMS Source of Information: Patient Limitations: No Limitations Description of Symptoms (Recalled from ER Triage Doc. by RN): pt to ed c/o exhaustion. pt states he spent the night in [place] [facility] and hadn't had a meal in some time. pt has no complaints. History of Present Illness HPI narrative: This patient is a 38-year-old male with history of anxiety presenting to the emergency department for evaluation with concern for feeling tired. Patient states that he was in [place] [facility] all night last night and then had to work this morning at the [employer]. He states that since he did not get to sleep all night and did not get to eat while he was in [place] [facility], he felt exhausted today at work, prompting him to call EMS. He states nothing else is bothering him except just being tired and wanting to sleep. He is drinking a Mountain Dew at this time with no concerns or complaints. Related Data Home Medications Medication Instructions Recorded Confirmed propranolol 20 mg tablet 20 mg PO BID UNKNOWN 08/19/20 04/24/22 Allergies Allergy/AdvReac Type Severity Reaction Status Date / Time codeine [CODEINE] Allergy Unknown Verified 10/12/22 19:47 Penicillins [PENICILLINS] Allergy Unknown Verified 10/12/22 19:47 [facility] Disclaimer: The information contained in this section may have been updated after the patient was seen, as this information can be updated by other users. Medical History No significant past medical history Family History Other No significant family history Social History Smoking Status: Never smoker second hand exposure: Yes alcohol intake: never current occupational status: unemployed Travel in the last 8 weeks: None ROS Obtained: Yes All systems reviewed & no additional complaints except as documented Physical Exam General General appearance: alert and in no apparent distress Head Head exam: atraumatic and normocephalic Eye Eye exam: Present normal appearance, PERRL and EOMI ENT ENT exam: Present normal exam, normal oropharynx, mucous membranes moist and normal external ear exam Neck Neck exam: Present normal inspection, full ROM and trachea midline; Absent tenderness Chest Chest inspection: Present normal inspection and symmetric chest wall rise; Absent tenderness Respiratory Respiratory exam: Present normal lung sounds bilaterally; Absent respiratory distress, wheezes, stridor or accessory muscle use Cardiovascular Cardiovascular exam: Present regular rate and normal rhythm Abdominal Exam Abdominal exam: Present soft; Absent distention, tenderness or guarding Extremities Exam Extremities exam: Present normal inspection, full ROM and normal capillary refill; Absent tenderness or edema Back Exam Back exam: Present normal inspection and full ROM; Absent tenderness Neurological Exam Neurological exam: Present alert, oriented X3, CN II-XII intact and normal gait; Absent motor sensory deficit Psychiatric Psychiatric exam: Present normal affect and normal mood Skin Skin exam: Present warm and dry Medical Decision Making Medical Records Medical records reviewed: Yes I reviewed the patient's medical records. [employer] Inquiry Pt receiving controlled substance: No Vital Signs: 10/18/23 16:30 10/18/23 16:36 Temperature 98.2 F Temperature Source Oral Pulse Rate 78 Pulse Rate [Left Radial] 86 Respiratory Rate 20 Blood Pressure 126/66 Blood Pressure [Right Arm] 146/82 H Blood Pressure Mean [Right Arm] 103 02 Sat by Pulse Oximetry 95 97 Oxygen Delivery Method Room Air Lab Data Lab results reviewed: Yes I reviewed the patient's lab results. ECG Data Tracing #1: I reviewed this ECG and interpreted as documented below: Normal sinus rhythm with a ventricular rate of [address] changes concerning for ischemia. Normal axis and intervals ECG initial impression date: 10/18/23 ECG initial impression time: 16:51 Medical Decision Narrative: In summary, this patient is a 38-year-old male presenting to the Emergency Department for evaluation of feeling tired because he was in [place] [facility] all night and did not get to sleep as well as had to work today. He also notes he had not eaten. Differential diagnoses considered include but are not limited to fatigue, hypoglycemia dehydration, dysrhythmia. Ruling out the most morbid conditions drove assessment. On exam, the patient is well-appearing. He is resting comfortably in bed in no acute distress with no specific concerns or complaints at this time. Vitals are normal on cardiac telemetry. Fingerstick blood glucose is 98. EKG obtained is normal. Given that he has no specific concerns or complaints aside from being tired, I do not feel that labs or workup otherwise are indicated. Patient was given some food. At this time, he is deemed to be medically cleared for discharge. Instructions for rest and supportive management were given for fatigue. Strict return precautions were given. Critical Care Critical Care Time Critical Care Time: No
[2023-10-18 18:27] VITALS: BP 142/82; PULSE 90; RESP 13; TEMP 36.7
== END 2023-10-18 18:28 | disposition home or self-care (01) ==
PROVIDERS: Emergency Provider Emergency Medicine; PCP Internal Medicine Adolescent Medicine
DX: R53.83 Other fatigue (principal)
CPT/HCPCS: 93005; 99283

== ENCOUNTER 2023-12-11 16:19 | Emergency (ER) | payer SELFPAY ==
[2023-12-11 16:19] VITALS: BP 143/83; PULSE 88; RESP 16; TEMP 36.9; O2SAT 98; BMI 25.8
[2023-12-11 16:30] VITALS: BP 131/76; PULSE 92; RESP 20; O2SAT 98
--- NOTE | 2023-12-11 16:34 | ED_ITS ---
Discharge Plan Disposition Patient Disposition: Home, Self-Care Condition: Good Prescriptions Prescriptions: No Action propranolol 20 MG tablet 20 mg PO BID Activity Restrictions/Add. Instructions Additional Instructions/Restrictions: You were evaluated in the emergency department today. Your stitches need to come out in 8 to 10 days. Please take Tylenol and ibuprofen at home as needed for pain. Keep your wound clean and dry. Do not submerge under any water. Monitor for any signs of infection, such as redness, warmth, or pus draining from the wound. Follow-up closely with your primary care provider for wound recheck. Clinical Impressions Clinical Impression: Laceration of hand, left Stand Alone Forms Stand Alone Forms: Work/School Release Instructions Patient Instructions: DI for Laceration Repair Print Language Print Language: Sudanese Discharge ED Provider: Bianca Holly General Adult HPI General Chief complaint: Wound/Laceration Stated complaint: Laceration Time Seen by Provider: 12/11/23 16:21 Mode of Arrival: EMS Source of Information: Patient Limitations: No Limitations Description of Symptoms (Recalled from ER Triage Doc. by RN): c/o cut on left hand with a crap game box person approx and hour ago. Reports that he was trying to put siding up when he cut his hand. History of Present Illness HPI narrative: This patient is a 38-year-old male who denies significant past medical history presenting to the emergency department for evaluation with concern for a wound to his left hand. He was using his right hand to use a crap game box person while working on [employer] when he accidentally cut into his left hand with a crap game box person. He arrives by EMS who noted that the wound is hemostatic and he stable en route. He complains of pain at the site of the laceration but no numbness, tingling, or limitations of range of motion. No other injuries noted. He was well prior to this. He is unsure when his last tetanus shot was. Related Data Home Medications ?Medication ?Instructions ?Recorded ?Confirmed propranolol 20 mg tablet 20 mg PO BID UNKNOWN 08/19/20 04/24/22 Allergies Allergy/AdvReac Type Severity Reaction Status Date / Time codeine [CODEINE] Allergy Unknown Verified 10/12/22 19:47 Penicillins [PENICILLINS] Allergy Unknown Verified 10/12/22 19:47 [facility] Disclaimer: The information contained in this section may have been updated after the patient was seen, as this information can be updated by other users. Medical History No significant past medical history Family History Other No significant family history Social History Smoking Status: Current every day smoker tobacco type: cigarettes packs per day: 1 second hand exposure: Yes alcohol intake: never current occupational status: unemployed Travel in the last 8 weeks: None ROS Obtained: Yes All systems reviewed & no additional complaints except as documented Physical Exam General General appearance: alert and in no apparent distress Head Head exam: atraumatic and normocephalic Eye Eye exam: Present normal appearance, PERRL and EOMI ENT ENT exam: Present normal exam, normal oropharynx, mucous membranes moist and normal external ear exam Neck Neck exam: Present normal inspection, full ROM and trachea midline; Absent tenderness Chest Chest inspection: Present normal inspection and symmetric chest wall rise; Absent tenderness Respiratory Respiratory exam: Present normal lung sounds bilaterally; Absent respiratory distress, wheezes, stridor or accessory muscle use Cardiovascular Cardiovascular exam: Present regular rate and normal rhythm Abdominal Exam Abdominal exam: Present soft; Absent distention, tenderness or guarding Extremities Exam Extremities exam: Present full ROM, normal capillary refill and other; Absent tenderness or edema Expanded Upper Extremity Exam Left: Hand L/R back image: 2 1. 1.5 cm linear laceration that is clean and not contaminated. Wound is hemostatic. Neurovascularly intact distally with full intact range of motion of all digits. Back Exam Back exam: Present normal inspection and full ROM; Absent tenderness Neurological Exam Neurological exam: Present alert, oriented X3, CN II-XII intact and normal gait; Absent motor sensory deficit Psychiatric Psychiatric exam: Present normal affect and normal mood Skin Skin exam: Present warm and dry Medical Decision Making Medical Records Medical records reviewed: Yes I reviewed the patient's medical records. [employer] Inquiry Pt receiving controlled substance: No Vital Signs: 12/11/23 16:19 12/11/23 16:30 12/11/23 17:01 Temperature 98.4 F Temperature Source Oral Pulse Rate 92 H 84 Pulse Rate [Left Radial] 88 Respiratory Rate 16 20 18 Blood Pressure 131/76 122/63 Blood Pressure [Right Arm] 143/83 H Blood Pressure Mean [Right Arm] 103 Blood Pressure Source Blood Pressure Source [Right Arm] Automatic Cuff Blood Pressure Position Blood Pressure Position [Right Arm] Sitting 02 Sat by Pulse Oximetry 98 98 98 Oxygen Delivery Method Room Air Room Air Room Air 12/11/23 17:30 12/11/23 17:57 Temperature 98.6 F Temperature Source Oral Pulse Rate 61 84 Pulse Rate [Left Radial] Respiratory Rate 18 18 Blood Pressure 116/64 116/64 Blood Pressure [Right Arm] Blood Pressure Mean [Right Arm] Blood Pressure Source Automatic Cuff Blood Pressure Source [Right Arm] Blood Pressure Position Sitting Blood Pressure Position [Right Arm] 02 Sat by Pulse Oximetry 97 Oxygen Delivery Method Room Air Room Air Lab Data Lab results reviewed: Yes I reviewed the patient's lab results. Orders (Tests/Meds): ED MEDICATIONS Discontinued Medications Generic Name Dose Route Start Last Admin Trade Name Freq PRN Reason Stop Dose Admin Acetaminophen 1,000 mg 12/11/23 16:25 12/11/23 16:50 Acetaminophen 500mg Tab PO 12/11/23 16:26 1,000 mg ONCE ONE Administration Bacitracin 1 each 12/11/23 17:52 12/11/23 17:59 Bacitracin Oint 0.9gm Udp TP 12/11/23 17:53 1 each ONCE ONE Administration Cocaine HCl 1 ml 12/11/23 16:25 12/11/23 16:50 Cocaine 4% Topical Soln 4ml Bottle TP 12/11/23 16:26 1 ml ONCE ONE Administration Epinephrine HCl 1 mg 12/11/23 16:25 12/11/23 16:50 Epinephrine 1 Mg/Ml Ampul TP 12/11/23 16:26 1 mg ONCE ONE Administration Ibuprofen 800 mg 12/11/23 16:25 12/11/23 16:51 Ibuprofen 400 Mg Tablet PO 12/11/23 16:26 800 mg ONCE ONE Administration Lidocaine HCl 1 ml 12/11/23 16:25 12/11/23 16:51 Lidocaine 2% Urojet 10ml TP 12/11/23 16:26 1 ml ONCE ONE Administration Lidocaine/Epinephrine 20 ml 12/11/23 16:25 12/11/23 17:20 Lidocaine 1% W/Epi 1:100,000 20ml Vial IJ 12/11/23 16:26 20 ml ONCE ONE Administration Tetanus/Reduced Diphtheria/Acell Pertussis 0.5 ml 12/11/23 16:25 12/11/23 16:51 Tet/Diphth/Pert-Adult 0.5ml Syringe IM 12/11/23 16:26 0.5 ml .ONCE ONE Administration Medical Decision Narrative: In summary, this patient is a 38-year-old male presenting to the Emergency Department for evaluation of laceration to the hand. Differential diagnoses considered include but are not limited to laceration, abrasion, foreign body, contaminated wound, neurovascular injury, tendon injury. Ruling out the most morbid conditions drove assessment. On exam, the patient is neurovascularly intact with full intact range of motion. Wound was explored and does not demonstrate any concern for deep structure injury. Wound was thoroughly irrigated. He then underwent laceration repair. Ultimately given that he is neurovascularly intact with no other concerns or complaints, I do not feel the labs or imaging are indicated. After his wound was sutured, it was dressed with bacitracin and a dressing. He was given instructions for supportive management, strict return precautions, instructions for close outpatient follow-up. He was discharged after all questions were answered. Procedures Risk/Benefits of Procedure(s) Were Explained: Yes Laceration Laceration 1: Site: hand Side (If applicable): left Size (cm): 1.5 Description: linear Depth: simple, single layer Local Anesthetic: lidocaine 1% and with epi Amount of anesthesia used (mL): 3 Pre-repair: wound explored, irrigated extensively and deep structures intact Skin layer closed with: nylon Size (cm): 4-0 Number of sutures: 3 Technique: simple, interrupted Critical Care Critical Care Time Critical Care Time: No
[2023-12-11] MEDS: EPINEPHrine 1 MG/ML AMPUL TP (16:50)
[2023-12-11] MEDS: COCAINE 4% TOPICAL SOLN 4ML BOTTLE 1 ML TP (16:50)
[2023-12-11] MEDS: ACETAMINOPHEN 500MG TAB 1000 MG PO (16:50)
[2023-12-11] MEDS: IBUPROFEN 400 MG TABLET 800 MG PO (16:51)
[2023-12-11] MEDS: LIDOCAINE 2% UROJET 10ML TP (16:51)
[2023-12-11] MEDS: TET/DIPHTH/PERT-ADULT 0.5ML SYRINGE 0.5 ML IM (16:51)
[2023-12-11 17:01] VITALS: BP 122/63; PULSE 84; RESP 18; O2SAT 98
[2023-12-11] MEDS: LIDOCAINE 1% W/EPI 1:100,000 20ML VIAL 20 ML IJ (17:20)
[2023-12-11 17:30] VITALS: BP 116/64; PULSE 61; RESP 18; O2SAT 97
--- NOTE | 2023-12-11 17:47 | PC.NURSE ---
Dr. Holly at for lac repair
[2023-12-11 17:57] VITALS: BP 116/64; PULSE 84; RESP 18; TEMP 37; O2SAT 99
[2023-12-11] MEDS: BACITRACIN OINT 0.9GM UDP 1 EACH TP (17:59)
== END 2023-12-11 18:00 | disposition home or self-care (01) ==
PROVIDERS: Emergency Provider Emergency Medicine; PCP Internal Medicine Adolescent Medicine
DX: S61.412A Laceration without foreign body of left hand, initial encounter (principal); W26.8XXA Contact with other sharp object(s), not elsewhere classified, initial encounter; Z23 Encounter for immunization
CPT/HCPCS: 12001; 90471; 90715; 99283

== ENCOUNTER 2024-01-17 02:13 | Emergency (ER) | payer SELFPAY ==
--- NOTE | 2024-01-17 02:09 | CT_ITS ---
PROCEDURE INFORMATION: Exam: CT Abdomen And Pelvis With Contrast Exam date and time: 01/17/2024 2:39 AM Age: 38 years old Clinical indication: Abdominal pain; Additional info: Left low back pain radiating to groin TECHNIQUE: Imaging protocol: Computed tomography of the abdomen and pelvis with contrast. Radiation optimization: All CT scans at this facility use at least one of these dose optimization techniques: automated exposure control; mA and/or kV adjustment per patient size (includes targeted exams where dose is matched to clinical indication); or iterative reconstruction. Contrast material: ISOVUE; Contrast volume: 75 ml; Contrast route: IV; COMPARISON: CT ABDOMEN PELVIS W CON 05/20/2019 1:29 AM FINDINGS: Liver: Unremarkable. Gallbladder and biliary ducts: No calcified stones. No ductal dilation. Pancreas: Unremarkable. No ductal dilation. Spleen: No splenomegaly. Adrenal glands: No mass. Kidneys and ureters: 1.0 x 1.4 x 1.0 cm partially calcified lesion within RIGHT kidney, mildly increased from previous examination (0.8 x 1.0 x 0.8 cm). Punctate calculus within LEFT kidney. Mild pelvocaliectasis of LEFT kidney. Mild dilatation of LEFT ureter. 0.2 x 0.2 x 0.2 cm calculus at/near LEFT ureterovesical junction. Stomach and bowel: Segmental areas of probable underdistention of LEFT colon. No definite mural thickening. No associated inflammatory stranding. No obstruction. Appendix: No findings to suggest appendicitis. Intraperitoneal space: No significant fluid collection. No definite free air. Vasculature: Unremarkable. No aneurysm. Lymph nodes: No pathologically enlarged lymph nodes. Urinary bladder: Unremarkable. Reproductive: Unremarkable as visualized. Bones/joints: Degenerative disc disease at L5-S1 level. No acute fracture. Soft tissues: Unremarkable. IMPRESSION: 1. LEFT distal ureteral calculus with mild hydroureteronephrosis. 2. Mild increase in size of partially calcified lesion within RIGHT kidney. Suggest MRI for further evaluation.
--- NOTE | 2024-01-17 02:10 | HMH.EDGENADL ---
Discharge Plan Disposition Patient Disposition: Home, Self-Care Condition: Good Prescriptions Prescriptions: New tamsulosin 0.4 mg capsule 0.4 mg PO HS Qty: 10 0RF oxycodone 5 mg tablet 5 mg PO Q6H PRN (Reason: pain) Qty: 8 0RF ondansetron 4 mg tablet,disintegrating 4 mg PO Q6H PRN (Reason: nausea and vomiting) Qty: 7 0RF acetaminophen 500 mg capsule 1,000 mg PO Q6H PRN (Reason: fever) Qty: 30 0RF ibuprofen 600 mg tablet 600 mg PO Q6H PRN (Reason: pain) Qty: 30 0RF No Action propranolol 20 MG tablet 20 mg PO BID Referrals Follow up/Referrals: Jairo Lombardo MD [Staff Physician] - See instructions (2mm distal L ureteral stone, outpatient follow up) Activity Restrictions/Add. Instructions Additional Instructions/Restrictions: You were evaluated in the ER and are appropriate for discharge at this time. Take Tylenol, ibuprofen if needed for pain. If you continue having pain after taking these medications, then take the prescribed oxycodone. This medication can make you sleepy, do not drive or operate machinery after taking this medication. Take the prescribed ondansetron if needed for nausea and vomiting. Take the prescribed tamsulosin to help pass the kidney stone. Drink plenty of water. Follow-up with urology, call their office for an appointment. Return to the ER with new, worsening, or otherwise concerning symptoms. Clinical Impressions Clinical Impression: Calculus of distal left ureter Instructions Patient Instructions: DI for Low Back Pain, DI for Acute Abdominal Pain Print Language Print Language: Cook Islander Discharge ED Provider: Tommy Roman General Adult HPI General Chief complaint: Back Pain/Injury Stated complaint: back=>abd pain Time Seen by Provider: 01/17/24 02:15 History of Present Illness HPI narrative: 38-year-old male presents with acute onset left flank pain radiating into the groin. Patient does have a history of kidney stone and states this pain feels similar. His pain onset suddenly late tonight. He has not been able to get comfortable and the pain has not improved so he came to the ER via EMS. Patient arrived with EMS curled up on the stretcher holding his left flank. He is alert and oriented. Patient does report climbing a tree earlier today but no falls, no known injuries, no pain after climbing the tree. No dysuria, no hematuria, patient is having nausea but no vomiting. No fevers, chills, chest pain, shortness of breath. Related Data Home Medications ?Medication ?Instructions ?Recorded ?Confirmed propranolol 20 mg tablet 20 mg PO BID UNKNOWN 08/19/20 04/24/22 Previous Rx's ?Medication ?Instructions ?Recorded acetaminophen 500 mg capsule 1,000 mg (2 x 500 mg) PO Q6H PRN 01/17/24 fever #30 caps ibuprofen 600 mg tablet 600 mg PO Q6H PRN pain #30 tabs 01/17/24 ondansetron 4 mg disintegrating 4 mg PO Q6H PRN nausea and 01/17/24 tablet vomiting #7 tabs oxycodone 5 mg tablet 5 mg PO Q6H PRN pain #8 tabs 01/17/24 tamsulosin 0.4 mg capsule 0.4 mg PO HS #10 caps 01/17/24 Allergies Allergy/AdvReac Type Severity Reaction Status Date / Time codeine [CODEINE] Allergy Unknown Verified 10/12/22 19:47 Penicillins [PENICILLINS] Allergy Unknown Verified 10/12/22 19:47 [facility] Disclaimer: The information contained in this section may have been updated after the patient was seen, as this information can be updated by other users. Medical History No significant past medical history Family History Other No significant family history Social History Smoking Status: Current every day smoker tobacco type: cigarettes packs per day: 1 second hand exposure: Yes alcohol intake: never current occupational status: unemployed Travel in the last 8 weeks: None ROS Obtained: Yes All systems reviewed & no additional complaints except as documented Positive ROS per HPI Physical Exam General General appearance: alert and in no apparent distress Head Head exam: atraumatic and normocephalic Eye Eye exam: Present PERRL and EOMI ENT ENT exam: Present mucous membranes moist Neck Neck exam: Present normal inspection and full ROM Chest Chest inspection: Present symmetric chest wall rise Respiratory Respiratory exam: Present normal lung sounds bilaterally; Absent respiratory distress, wheezes or stridor Cardiovascular Cardiovascular exam: Present regular rate and normal rhythm Abdominal Exam Abdominal exam: Present soft and tenderness (Mild left lower quadrant); Absent distention, guarding or rebound Extremities Exam Extremities exam: Present full ROM Back Exam Back exam: Present CVA tenderness (L); Absent CVA tenderness (R) or vertebral tenderness (No deformity or step-off) Neurological Exam Neurological exam: Present alert and oriented X3; Absent motor sensory deficit Psychiatric Psychiatric exam: Present normal affect and normal mood Skin Skin exam: Present warm and dry Medical Decision Making Medical Records Medical records reviewed: Yes I reviewed the patient's medical records. MR Comment: Patient evaluated in November 2022 for concerns of STD exposure. Patient had dislocated shoulder in April 2022. Reduced in the ER. Followed up with orthopedics. No surgery. Sony Inquiry Pt receiving controlled substance: No Vital Signs: 01/17/24 02:13 01/17/24 02:30 01/17/24 03:00 Temperature 98.0 F Temperature Source Oral Pulse Rate 65 79 Pulse Rate [Left Radial] 76 Respiratory Rate 21 Blood Pressure 121/60 118/71 Blood Pressure [Right Arm] 134/89 Blood Pressure Mean [Right Arm] 104 Blood Pressure Source [Right Arm] Automatic Cuff Blood Pressure Position [Right Arm] Sitting 02 Sat by Pulse Oximetry 100 98 94 L Oxygen Delivery Method Room Air 01/17/24 03:30 Temperature Temperature Source Pulse Rate 85 Pulse Rate [Left Radial] Respiratory Rate Blood Pressure 96/43 L Blood Pressure [Right Arm] Blood Pressure Mean [Right Arm] Blood Pressure Source [Right Arm] Blood Pressure Position [Right Arm] 02 Sat by Pulse Oximetry 95 Oxygen Delivery Method Lab Data Lab Results 01/17/24 02:25: WBC 10.2, RBC 5.04, Hgb 16.7, Hct 50.6, MCV 100.3 H, MCH 33.1 H, MCHC 33.0, RDW 13.1, Plt Count 262, MPV 8.4, Neut % (Auto) 63.5, Lymph % (Auto) 25.0, [place] % (Auto) 7.3, Eos % (Auto) 3.1, Baso % (Auto) 1.1, Neut # (Auto) 6.5, Lymph # (Auto) 2.5, [place] # (Auto) 0.7, Eos # (Auto) 0.3, Baso # (Auto) 0.1, Sodium 138, Potassium 3.5, Chloride 104, Carbon Dioxide 29, Anion Gap 8.5, BUN 12, Creatinine 0.90, Estimated Creat Clear 115, Estimated GFR 95, Est GFR ( Amer) 115, Glucose 113 H, Calcium 9.0, Total Bilirubin 0.8, AST 25, ALT 20, Alkaline Phosphatase 72, Total Protein 6.7, Albumin 4.3, Globulin 2.4, Albumin/Globulin Ratio 1.8 01/17/24 02:48: Urine Color Yellow, Urine Appearance Clear, Urine pH 6.0, Ur Specific [place] 1.025, Urine Protein Negative, Urine Glucose (UA) Negative, Urine Ketones Negative, Urine Blood Trace-l, Urine Nitrate Negative, Urine Bilirubin Negative, Urine Urobilinogen 0.2, Ur Leukocyte Esterase Negative, Urine RBC 3-5, Urine WBC None, Ur Squamous Epith Cells Occasional, Urine Bacteria None 01/17/24 02:25 01/17/24 02:25 Orders (Tests/Meds): ED MEDICATIONS Generic Name Dose Route Start Last Admin Trade Name Candelario PRN Reason Stop Dose Admin Sodium Chloride 10 ml 01/17/24 02:54 01/17/24 02:55 Sodium Chloride 0.9% 10ml Syr (Rad Only) IV 02/16/24 02:53 10 ml NEEDED PRN Administration Maintain IV Site Discontinued Medications Generic Name Dose Route Start Last Admin Trade Name Candelario PRN Reason Stop Dose Admin Hydromorphone HCl 0.5 mg 01/17/24 02:09 01/17/24 02:23 Hydromorphone 2mg/Ml Syringe IV 01/17/24 02:10 0.5 mg ONCE ONE Administration Lactated Ringer's 1,000 mls @ 999 mls/hr 01/17/24 02:09 01/17/24 02:23 Lactated Ringer's 1000 Ml Bag IV 01/17/24 03:09 999 mls/hr .Q1H1M ONE Administration Iopamidol 75 ml 01/17/24 02:54 01/17/24 02:55 Iopamidol-370 (76%);100ml Bottle IV 01/17/24 02:55 75 ml ONCE ONE Administration Ketorolac Tromethamine 15 mg 01/17/24 02:09 01/17/24 02:24 Ketorolac 30mg/Ml Vial IV 01/17/24 02:10 15 mg ONCE ONE Administration Ondansetron HCl 4 mg 01/17/24 02:09 01/17/24 02:24 Ondansetron 4mg/2ml Vial IV 01/17/24 02:10 4 mg ONCE ONE Administration Tamsulosin HCl 0.4 mg 01/17/24 03:36 01/17/24 03:45 Tamsulosin 0.4mg Capsule PO 01/17/24 03:37 0.4 mg ONCE ONE Administration ORDERS Category Date Time Status CT abdomen pelvis w con Stat Cat Scan 01/17/24 02:09 Completed CBC w/Auto Diff [Complete Blood Count Auto Diff] Stat Lab 01/17/24 02:25 Completed CMP [Comprehensive Metabolic Panel] Stat Lab 01/17/24 02:25 Completed Urinalysis and Microscopic Stat Lab 01/17/24 02:48 Completed Medical Decision Narrative: In summary, this 38-year-old male with a history of kidney stones which is a comorbidity of current condition and increases risk of presents to the emergency department today with left flank pain radiating to the groin. On initial evaluation patient is hemodynamically stable, afebrile, appears to be in pain, left CVA tenderness, left lower quadrant tenderness without rebound or guarding, nonacute abdomen, remainder of exam benign. Differential diagnosis includes but is not limited to kidney stone, urinary tract infection, pyelonephritis, intra-abdominal pathology such as diverticulitis, also considered muscle spasm, spine injury, however I have much lower suspicion for these since patient has not had an acute traumatic event. Based on these concerns, I ordered serum labs, urinalysis, CT imaging. Patient received IV fluids, Toradol, Dilaudid, Zofran for treatment. Labs personally reviewed demonstrate no leukocytosis or anemia, no findings of kidney dysfunction, no actionable abnormalities on CMP, UA negative for findings of infection. CT abdomen pelvis personally interpreted demonstrates distal left ureteral stone with mild hydronephrosis. Stone is small, approximately 2 mm. See radiology read for final interpretation. Patient received tamsulosin. On reassessment patient is resting much more comfortably. He states he feels significantly improved. I reviewed results with him. I have written prescriptions for Tylenol, ibuprofen, oxycodone, tamsulosin, ondansetron for outpatient management of symptoms. He was referred to urology for outpatient follow-up. Patient was given instructions on symptomatic management, follow up instructions, and return precautions for the emergency department. Patient indicated understanding and was discharged in stable condition. Critical Care Critical Care Time Critical Care Time: No
[2024-01-17 02:13] VITALS: BP 134/89; PULSE 76; RESP 21; TEMP 36.7; O2SAT 100; BMI 25.8
[2024-01-17] MEDS: HYDROMORPHONE 2MG/ML SYRINGE 0.5 MG IV (02:23)
[2024-01-17] MEDS: LACTATED RINGERS 1000ML 1,000 ML 999 ML IV (02:23)
[2024-01-17] MEDS: ONDANSETRON 4MG/2ML VIAL 4 MG IV (02:24)
[2024-01-17] MEDS: KETOROLAC 30MG/ML VIAL 15 MG IV (02:24)
[2024-01-17 02:30] VITALS: BP 121/60; PULSE 65; O2SAT 98
[2024-01-17 02:33] LABS: Basophils # 0.1 K/mm3 (0-0.2); Basophils % 1.1 % (0.1-2.0); Eosinophils # 0.3 K/mm3 (0.0-0.4); Eosinophils % 3.1 % (0.1-12.0); Hematocrit 50.6 % (42.0-52.0); Hemoglobin 16.7 g/dL (14.1-18.0); Lymphocytes # 2.5 K/mm3 (0.7-4.5); Mean Corpuscular Hemoglobin 33.1 pg (27.0-31.2); Mean Corpuscular Volume 100.3 fl (80-94); Mean Platelet Volume 8.4 fl (7.4-10.4); Monocytes # 0.7 K/mm3 (0.1-1.0); Monocytes % 7.3 % (1.7-9.3); Neutrophils # 6.5 K/mm3 (1.8-7.8); Neutrophils % 63.5 % (37.0-80.0); Platelet Count 262 K/mm3 (142-424); Red Blood Count 5.04 M/mm3 (4.60-6.20); Red Cell Distribution Width 13.1 % (11.5-17.5); White Blood Count 10.2 K/mm3 (4.8-10.8)
[2024-01-17 02:37] LABS: Albumin Level 4.3 g/dl (3.5-5.0); Chloride 104 mmol/L (98-107)
[2024-01-17 02:38] LABS: Potassium 3.5 mmoL/L (3.5-5.1); Sodium 138 mmol/L (136-145)
[2024-01-17 02:40] LABS: Blood Urea Nitrogen 12 mg/dl (9-20); Creatinine Clearance Estimated 115 mL/min (50-200); Estimated Glomerular Filt Rate 95 ml/min (>60); GFR (African American) 115 ML/MIN (>60)
[2024-01-17 02:41] LABS: Alanine Aminotransferase 20 U/L (12-78); Albumin/Globulin Ratio 1.8 (1.1-1.8); Alkaline Phosphatase 72 U/L (38-126); Anion Gap 8.5 mEq/L (5-15); Aspartate Amino Transferase 25 U/L (17-59); Bilirubin,Total 0.8 mg/dl (0.2-1.3); Carbon Dioxide 29 mmol/L (22.0-30.0); Globulin 2.4 g/dL (1.3-3.2); Glucose 113 mg/dl (74-100); Total Protein,Serum 6.7 g/dl (6.3-8.2)
[2024-01-17 02:53] LABS: Microscopic, Urine URINE MICROSCOPIC (MICROSCOPIC)
[2024-01-17 02:54] LABS: Appearance,Urine CLEAR (Clear); Bilirubin,Urine Negative (Negative); Blood, Urine TRACE-L (Negative); Color,Urine YELLOW (Yellow); Glucose,Urine (UA) Negative (Negative); Ketones,Urine Negative (Negative); Leukocyte Esterase,Urine Negative (Negative); Nitrate,Urine Negative (Negative); Protein,Urine Negative (Negative); Specific Gravity, Urine 1.025 (1.005-1.030); Urobilinogen,Urine 0.2 EU/dl (0.2)
[2024-01-17] MEDS: SODIUM CHLORIDE 0.9% 10ML SYR (RAD ONLY) 10 ML IV (02:55)
[2024-01-17] MEDS: IOPAMIDOL-370 (76%);100ML BOTTLE 75 ML IV (02:55)
[2024-01-17 03:00] VITALS: BP 118/71; PULSE 79; O2SAT 94
[2024-01-17 03:07] LABS: Squamous Epithelial Cell,Urine Occasional #/hpf (0-5)
[2024-01-17 03:30] VITALS: BP 96/43; PULSE 85; O2SAT 95
[2024-01-17] MEDS: TAMSULOSIN 0.4MG CAPSULE 0.4 MG PO (03:45)
[2024-01-17 03:52] VITALS: BP 98/63; PULSE 70; RESP 18; TEMP 36.7; O2SAT 99
== END 2024-01-17 04:03 | disposition home or self-care (01) ==
PROVIDERS: Emergency Provider Emergency Medicine; PCP Internal Medicine Adolescent Medicine
DX: N13.30 Unspecified hydronephrosis (principal); N20.1 Calculus of ureter; R10.32 Left lower quadrant pain; F17.210 Nicotine dependence, cigarettes, uncomplicated
CPT/HCPCS: 74177; 80053; 81001; 85025; 96361; 96374; 96375; 99285; J1170; J1885; J2405; J7120; Q9967

== ENCOUNTER 2024-01-17 09:48 | Emergency (ER) | payer SELFPAY ==
[2024-01-17 09:48] VITALS: BP 111/54; PULSE 88; RESP 18; TEMP 36.7; O2SAT 96; BMI 25.8
--- NOTE | 2024-01-17 09:48 | HMH.EDGENADL ---
Discharge Plan Disposition Patient Disposition: Home, Self-Care Condition: Good Prescriptions Prescriptions: No Action tamsulosin 0.4 mg capsule 0.4 mg PO HS Qty: 10 0RF oxycodone 5 mg tablet 5 mg PO Q6H PRN (Reason: pain) Qty: 8 0RF ondansetron 4 mg tablet,disintegrating 4 mg PO Q6H PRN (Reason: nausea and vomiting) Qty: 7 0RF acetaminophen 500 mg capsule 1,000 mg PO Q6H PRN (Reason: fever) Qty: 30 0RF ibuprofen 600 mg tablet 600 mg PO Q6H PRN (Reason: pain) Qty: 30 0RF propranolol 20 MG tablet 20 mg PO BID Referrals Follow up/Referrals: Janak Emmanuel MD [Primary Care Provider] - See instructions Activity Restrictions/Add. Instructions Additional Instructions/Restrictions: Please coal picker the prescriptions that Dr. Roman prescribed earlier this morning. Please return with any new or worsening symptoms. Clinical Impressions Clinical Impression: Urolithiasis Instructions Patient Instructions: DI for Urinary Tract Infection (UTI), DI for Urinary Tract Infection in Children Print Language Print Language: [place]ian Discharge ED Provider: Thomas Flower General Adult HPI General Chief complaint: Urogenital-Male Stated complaint: Pain Time Seen by Provider: 01/17/24 09:48 History of Present Illness HPI narrative: He presents with a chief complaint of worsening back pain. He reports that he was in the emergency department early this morning or last night and was diagnosed with a kidney stone. Since that time, he has experienced increasing pain that comes and goes. The pain is located on the left side of his leg and does not spread. He also reports feeling like he has a fever but has not been able to confirm it. He denies any nausea or vomiting. He experiences mild abdominal pain in the middle but not severe. He has not had any fevers. He has not yet picked up the prescribed medications from Dr. Roman. He adds that the pain started back in this morning after initially easing out following his previous ED visit. He describes the pain as intermittent, stating it might ease out now and then fire up again five minutes later. He expresses a desire to lay down due to his discomfort. Please note that above description of symptoms, in this electronic medical record under categorization of recalled from ER triage doctor by RN are reflective of an initial nursing assessment, however, is not reflective of my full history and physical exam that was personally taken and clarified. Consequentially, this preceding description of symptoms, which may include the patient's categorized chief complaint in the EMR, do not reflect my personal clinical impression, and the ultimate description of history of present illness and patient stated complaints should be deferred to this section of the note. Unless stated otherwise or congruent with this section of the note, additional signs, symptoms, or incongruence should be interpreted as inaccurate with my clinical impression. Related Data Home Medications ?Medication ?Instructions ?Recorded ?Confirmed propranolol 20 mg tablet 20 mg PO BID UNKNOWN 08/19/20 04/24/22 Previous Rx's ?Medication ?Instructions ?Recorded acetaminophen 500 mg capsule 1,000 mg (2 x 500 mg) PO Q6H PRN 01/17/24 fever #30 caps ibuprofen 600 mg tablet 600 mg PO Q6H PRN pain #30 tabs 01/17/24 ondansetron 4 mg disintegrating 4 mg PO Q6H PRN nausea and 01/17/24 tablet vomiting #7 tabs oxycodone 5 mg tablet 5 mg PO Q6H PRN pain #8 tabs 01/17/24 tamsulosin 0.4 mg capsule 0.4 mg PO HS #10 caps 01/17/24 Allergies Allergy/AdvReac Type Severity Reaction Status Date / Time codeine [CODEINE] Allergy Unknown Verified 10/12/22 19:47 Penicillins [PENICILLINS] Allergy Unknown Verified 10/12/22 19:47 [facility] Disclaimer: The information contained in this section may have been updated after the patient was seen, as this information can be updated by other users. Medical History No significant past medical history Family History Other No significant family history Social History Smoking Status: Current every day smoker tobacco type: cigarettes packs per day: 1 second hand exposure: Yes alcohol intake: never current occupational status: unemployed Travel in the last 8 weeks: None ROS Obtained: Yes other As per HPI Physical Exam General General appearance: alert and in no apparent distress Head Head exam: atraumatic and normocephalic Eye Eye exam: Present normal appearance Neck Neck exam: Present normal inspection Chest Chest inspection: Present normal inspection and symmetric chest wall rise Respiratory Respiratory exam: Present normal lung sounds bilaterally; Absent respiratory distress Cardiovascular Cardiovascular exam: Present regular rate and normal rhythm Abdominal Exam Abdominal exam: Present soft Comment: L CVA TTP, LLQ mild TTP Neurological Exam Neurological exam: Present alert and oriented X3 Psychiatric Psychiatric exam: Present normal affect and normal mood Skin Skin exam: Present warm and dry Medical Decision Making Medical Records Medical records reviewed: Yes I reviewed the patient's medical records. Sony Inquiry Pt receiving controlled substance: No Vital Signs: 01/17/24 09:48 01/17/24 10:04 01/17/24 10:30 Temperature 98.1 F Temperature Source Oral Pulse Rate 92 H 61 Pulse Rate [Right] 88 Respiratory Rate 18 Blood Pressure 152/95 H 124/67 Blood Pressure [Right Arm] 111/54 L Blood Pressure Mean [Right Arm] 73 Blood Pressure Source Blood Pressure Position 02 Sat by Pulse Oximetry 96 97 96 Oxygen Delivery Method Room Air Room Air Room Air 01/17/24 11:13 Temperature 97.9 F Temperature Source Oral Pulse Rate 70 Pulse Rate [Right] Respiratory Rate 18 Blood Pressure 121/67 Blood Pressure [Right Arm] Blood Pressure Mean [Right Arm] Blood Pressure Source Automatic Cuff Blood Pressure Position Sitting 02 Sat by Pulse Oximetry Oxygen Delivery Method Room Air Orders (Tests/Meds): ED MEDICATIONS Discontinued Medications Generic Name Dose Route Start Last Admin Trade Name Freq PRN Reason Stop Dose Admin Ketorolac Tromethamine 15 mg 01/17/24 10:11 01/17/24 10:21 Ketorolac 30mg/Ml Vial IV 01/17/24 10:12 15 mg ONCE ONE Administration Ondansetron HCl 4 mg 01/17/24 10:11 01/17/24 10:21 Ondansetron 4mg/2ml Vial IV 01/17/24 10:12 4 mg ONCE ONE Administration Medical Decision Narrative: Patient with history and exam per above presenting for evaluation of flank pain in the setting of known urolithiasis Diagnoses considered include redemonstrated urolithiasis, patient describes pain consistent with previous workup consistent with urolithiasis, additionally, repeatedly requests room for taking a nap upon serial evaluations, suspect component of malingering. No further workup is indicated at this time I discussed my clinical impression with patient and answered all questions. At this time, the evidence for any other entities in the differential is insufficient to warrant any further testing or ED observation. This was explained to the patient. The patient was advised that persistent or worsening symptoms require further evaluation. Critical Care Critical Care Time Critical Care Time: No
--- NOTE | 2024-01-17 09:54 | PC.NURSE ---
pt assisted to br
[2024-01-17 10:04] VITALS: BP 152/95; PULSE 92; O2SAT 97
--- NOTE | 2024-01-17 10:16 | PC.NURSE ---
dr estrella at bedside
[2024-01-17] MEDS: ONDANSETRON 4MG/2ML VIAL 4 MG IV (10:21)
[2024-01-17] MEDS: KETOROLAC 30MG/ML VIAL 15 MG IV (10:21)
[2024-01-17 10:30] VITALS: BP 124/67; PULSE 61; O2SAT 96
--- NOTE | 2024-01-17 10:55 | PC.NURSE ---
pt resting on left side, no needs at this time. call light within reach
[2024-01-17 11:13] VITALS: BP 121/67; PULSE 70; RESP 18; TEMP 36.6; O2SAT 18
== END 2024-01-17 11:13 | disposition home or self-care (01) ==
PROVIDERS: Emergency Provider Emergency Medicine; PCP Internal Medicine Adolescent Medicine
DX: N20.1 Calculus of ureter (principal)
CPT/HCPCS: 96374; 96375; 99284; J1885; J2405

== ENCOUNTER 2024-10-03 12:46 | Emergency (ER) | payer SELFPAY ==
[2024-10-03 12:55] VITALS: BP 119/70; PULSE 74; RESP 18; TEMP 36.7; O2SAT 97; BMI 26.6
--- NOTE | 2024-10-03 13:06 | ED_ITS ---
<Statement entered by Alli Guerra MD - 10/03/24 14:52> I was consulted by the NIKI, and we discussed the complexity of the problems being addressed. I approved the treatment and management plan for this patient's care in the emergency department, thus performing a substantive portion of the medical decision making. Alli Guerra MD Discharge Plan Disposition Patient Disposition: Home, Self-Care Condition: Good Prescriptions Prescriptions: New methocarbamol 750 mg tablet 750 mg PO Q6H PRN (Reason: muscle spasm) Qty: 20 0RF prednisone 50 mg tablet 50 mg PO DAILY 5 Days Qty: 5 0RF No Action tamsulosin 0.4 mg capsule 0.4 mg PO HS Qty: 10 0RF oxycodone 5 mg tablet 5 mg PO Q6H PRN (Reason: pain) Qty: 8 0RF ondansetron 4 mg tablet,disintegrating 4 mg PO Q6H PRN (Reason: nausea and vomiting) Qty: 7 0RF acetaminophen 500 mg capsule 1,000 mg PO Q6H PRN (Reason: fever) Qty: 30 0RF ibuprofen 600 mg tablet 600 mg PO Q6H PRN (Reason: pain) Qty: 30 0RF propranolol 20 MG tablet 20 mg PO BID Referrals Follow up/Referrals: Reji Camara MD [Staff Physician] - See instructions Janak Emmanuel MD [Primary Care Provider] - See instructions Activity Restrictions/Add. Instructions Additional Instructions/Restrictions: As we discussed I have referred you to Dr. Camara. You can call tomorrow to make your appointment. I have sent in steroids and a muscle relaxer to your pharmacy. If you have continued new or worsening signs or symptoms follow-up with your PCP return to the ER as needed. Clinical Impressions Clinical Impression: Degenerative disc disease Qualifiers: Spinal region: lumbar Disc-related pain type: discogenic back pain and lower extremity pain Qualified Code(s): M51.362 - Other intervertebral disc degeneration, lumbar region with discogenic back pain and lower extremity pain Stand Alone Forms Stand Alone Forms: Work/School Release Instructions Patient Instructions: DI for Low Back Pain Print Language Print Language: Lithuanian Discharge ED Provider: Alli Guerra General Adult HPI General Chief complaint: Back Pain/Injury Stated complaint: lower back pain down legs-no known accident Time Seen by Provider: 10/03/24 13:06 Mode of Arrival: Ambulatory Description of Symptoms (Recalled from ER Triage Doc. by RN): PT presents for evaluation of lower back pain, states it has been going on for a week now and gets worse when moving. Pt rates an 8 on a scale of 1-10. Denies urinary pain or issues with urination. Pt denies radiating pain localized to lumbar region. Pt denies injury at work. History of Present Illness HPI narrative: Patient presents for evaluation of low back pain. Patient gives a history of 2 weeks of right sided lumbar back pain that has started to occasionally radiate down his right leg. He states it began when he started to do heavy lifting boxes at work 2 weeks ago. He has not taken anything for it. He denies any numbness tingling loss of motor or sensory bowel or bladder function. He denies any known injury. Related Data Home Medications ?Medication ?Instructions ?Recorded ?Confirmed propranolol 20 mg tablet 20 mg PO BID UNKNOWN 08/19/20 04/24/22 Previous Rx's ?Medication ?Instructions ?Recorded acetaminophen 500 mg capsule 1,000 mg (2 x 500 mg) PO Q6H PRN 01/17/24 fever #30 caps ibuprofen 600 mg tablet 600 mg PO Q6H PRN pain #30 tabs 01/17/24 ondansetron 4 mg disintegrating 4 mg PO Q6H PRN nausea and 01/17/24 tablet vomiting #7 tabs oxycodone 5 mg tablet 5 mg PO Q6H PRN pain #8 tabs 01/17/24 tamsulosin 0.4 mg capsule 0.4 mg PO HS #10 caps 01/17/24 methocarbamol 750 mg tablet 750 mg PO Q6H PRN muscle spasm #20 10/03/24 tabs prednisone 50 mg tablet 50 mg PO DAILY 5 days #5 tabs 10/03/24 Allergies Allergy/AdvReac Type Severity Reaction Status Date / Time codeine (CODEINE) Allergy Unknown Verified 10/12/22 19:47 Penicillins (PENICILLINS) Allergy Unknown Verified 10/12/22 19:47 [facility] Disclaimer: The information contained in this section may have been updated after the patient was seen, as this information can be updated by other users. Medical History No significant past medical history Family History Other No significant family history Social History Smoking Status: Current every day smoker tobacco type: cigarettes packs per day: 1 second hand exposure: Yes alcohol intake: never current occupational status: unemployed Travel in the last 8 weeks?: None Have you lived/traveled outside [place] in past 30 days?: No Contact w/someone who lives/traveled outside US past 30 days?: No Exposure to someone with infectious disease in past 14 days?: No Do you have a fever (greater than 100.4 F or 38 C)?: No Have you tested positive for COVID-19?: No Exposed to someone with COVID-19 in past 14 days?: No Do you have a sore throat?: No Do you have a cough?: No Do you have any weakness?: No Do you have any diarrhea?: No Are you experiencing any unusual bleeding?: No Do you have any muscle aches/pain?: No Do you have any abdominal pain?: Yes Are you experiencing loss of taste or smell?: No Other Medical History Have you received the Flu Vaccine for this season: No Have you received the Pneumonia Vaccine: No ROS Obtained: Yes Systems reviewed as appropriate & no additional complaints except as documented Physical Exam General General appearance: alert Respiratory Respiratory exam: Present normal lung sounds bilaterally Cardiovascular Cardiovascular exam: Present regular rate Neurological Exam Neurological exam: Present alert and oriented X3 Medical Decision Making Medical Records Medical records reviewed: Yes I reviewed the patient's medical records. Screening: Per USPSTF and CDC recommendations, given the prevalence of disease in our region, it is our hospital?s policy to screen for HIV and viral Hepatitis for all patients aged 18 and over and those with ongoing risk factors. Sony Inquiry Pt receiving controlled substance: No Vital Signs: 10/03/24 12:55 Temperature 98.0 F Temperature Source Oral Pulse Rate [Right] 74 Respiratory Rate 18 Blood Pressure [Right Arm] 119/70 Blood Pressure Mean [Right Arm] 86 02 Sat by Pulse Oximetry 97 Oxygen Delivery Method Room Air Orders (Tests/Meds): ED MEDICATIONS Discontinued Medications Generic Name Dose Route Start Last Admin Trade Name Freq PRN Reason Stop Dose Admin Acetaminophen 1,000 mg 10/03/24 13:09 10/03/24 13:18 Acetaminophen 500mg Tab PO 10/03/24 13:10 1,000 mg ONCE ONE Administration Ibuprofen 800 mg 10/03/24 13:09 10/03/24 13:18 Ibuprofen 400 Mg Tablet PO 10/03/24 13:10 800 mg ONCE ONE Administration Methocarbamol 500 mg 10/03/24 13:09 10/03/24 13:18 Methocarbamol 500mg Tablet PO 10/03/24 13:10 500 mg ONCE ONE Administration Prednisone 60 mg 10/03/24 13:09 10/03/24 13:18 Prednisone 20mg Tab PO 10/03/24 13:10 60 mg ONCE ONE Administration ORDERS Category Date Time Status CT lumbar spine wo con Stat Cat Scan 10/03/24 13:09 Completed Medical Decision Narrative: In summary patient is a 39-year-old male who presents to the emergency department for evaluation of lumbar low back pain with right lower extremity radicular pain. Patient is hemodynamically stable upon arrival, afebrile. Physical exam is remarkable for tenderness in the paraspinous musculature of the lumbar spine on the right but no midline tenderness on palpation, no evidence of edema ecchymosis contusions abrasions bony deformity. He is neurovascularly intact in his bilateral lower extremities with full range of motion. He is ambulatory in the emergency department. He has no saddle anesthesia.. Differential diagnosis includes degenerative disc disease versus possible occult fracture versus musculoskeletal injury etc. Initial workup will be conducted with CT scan lumbar spine without contrast. Initial interventions include Tylenol ibuprofen prednisone Robaxin. Initial workup reviewed by me and patient has multilevel degenerative disc disease but severe degenerative disc at L5-S1, however do not see any bony abnormalities or fractures prior to radiology read. Please see final read for formal interpretation. Upon repeat evaluation patient reported moderate improvement after initial invention. Given this I had a shared decision-making discussion with the patient regarding referral to Dr. Camara for pain management versus follow-up PCP and patient would like to be referred to Dr. Camara. Thus patient is appropriate for discharge with referral to Dr. Camara prescription for burst of steroids prednisone and Robaxin. Patient advised not to drive while on Robaxin. Patient verbalized understanding and agreement. Critical Care Critical Care Time Critical Care Time: No
--- NOTE | 2024-10-03 13:09 | CT_ITS ---
PROCEDURE INFORMATION: Exam: CT Lumbar Spine Without Contrast Exam date and time: 10/03/2024 2:14 PM Age: 39 years old Clinical indication: Low back pain; Additional info: Discogenic back pain and sciatica x few weeks TECHNIQUE: Imaging protocol: Computed tomography of the lumbar spine without contrast. Radiation optimization: All CT scans at this facility use at least one of these dose optimization techniques: automated exposure control; mA and/or kV adjustment per patient size (includes targeted exams where dose is matched to clinical indication); or iterative reconstruction. COMPARISON: CT LUMBAR SPINE WO CON 04/13/2022 7:15 PM FINDINGS: Bones/joints: There is preservation of vertebral alignment. There is preservation of vertebral body heights. Facet joints are aligned. No acute fracture. Sacroiliac joints are congruent. There are mild discogenic changes at L5-S1 level L1-L2: No significant disc bulge or herniation. No severe spinal canal stenosis. No significant neural foraminal narrowing. L2-L3: No significant disc bulge or herniation. No severe spinal canal stenosis. No significant neural foraminal narrowing. L3-L4: No significant disc bulge or herniation. No severe spinal canal stenosis. No significant neural foraminal narrowing. L4-L5: Diffuse disc bulge and facet arthropathy noted. No significant spinal canal stenosis. There is no significant neural foraminal narrowing. L5-S1: Diffuse disc bulge and facet arthropathy noted. No significant spinal canal stenosis. There is severe bilateral neural foraminal narrowing. Kidneys and ureters: There is a 1 cm right renal cyst with layering dense material Soft tissues: Unremarkable. IMPRESSION: 1. No acute fracture. No traumatic subluxation. 2. There is severe bilateral neural foraminal narrowing at L5-S1 level. COMMENTS: Consistent with the [employer]'s Incidental Findings Committee white paper (J Am Allen Radiol 2018): Any incidental renal lesion less than 1 cm or classified as too small to characterize, or any incidental cystic renal lesion characterized as simple-appearing, is likely benign. No follow-up imaging is recommended for these lesions per consensus recommendations based on imaging criteria.
[2024-10-03] MEDS: IBUPROFEN 400 MG TABLET 800 MG PO (13:18)
[2024-10-03] MEDS: predniSONE 20MG TAB 60 MG PO (13:18)
[2024-10-03] MEDS: METHOCARBAMOL 500MG TABLET 500 MG PO (13:18)
[2024-10-03] MEDS: ACETAMINOPHEN 500MG TAB 1000 MG PO (13:18)
[2024-10-03 15:01] VITALS: BP 120/64; PULSE 82; RESP 18; TEMP 36.8
== END 2024-10-03 14:59 | disposition home or self-care (01) ==
PROVIDERS: Emergency Provider Emergency Medicine; PCP Internal Medicine Adolescent Medicine
DX: M51.362 Other intervertebral disc degeneration, lumbar region with discogenic back pain and lower extremity pain (principal); M54.59 Other low back pain
CPT/HCPCS: 72131; 99284

== ENCOUNTER 2025-01-02 15:00 | Outpatient (RCR) | payer OTHER, SELFPAY ==
--- NOTE | 2024-12-19 15:50 | HMH.OTOPEV ---
OT Inpatient Evaluation Rehab OT Outpatient Eval Start: 12/19/24 15:30 Freq: Status: Active Protocol: Document 12/19/24 15:30 RMARSHALL (Rec: 12/19/24 15:49 RMARSHALL [id number]) E-signed By David Carvajal, OT Outpatient Therapy Subjective History Subjective History Pt is a 39 year old male who reports to therapy for initial evaluation to left shoulder. Pt reports ~1 month ago he was climbing a ladder when he fell landing on left shoulder ~7-8 feet high. This accident resulted in dislocating his left shoulder. Pt reports this is the second time he has dislocated the left shoulder; the first was ~7 years ago. Pt is right hand dominant. 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 Pt demonstrates with decreased AROM and strength at left shoulder. At this time he has not had a MRI completed or an ortho evaluation. Therapist will continue to see patient twice a week in order to address left shoulder deficits. New diagnosis of No cancer in past 12 months? Chief Complaint Pain,Stiff,Weakness Symptom Type Ache,Throb,Dull Symptoms Relieved By Rest/Positioning Symptoms Aggravated Physical Activity,Lifting By Prior Functional None Limitations Current Functional Reaching,Lifting,Housework,Dressing,Driving,Sleeping, Limitations Recreation Activity Symptom Description Constant but Variable Level of pain today 2 (0-10) Pain scale - at its 2 best (0-10) Pain scale - at its 9 worst (0-10) Shoulder/Elbow Eval Shoulder Objective Measurements Shoulder ROM Left Shoulder Abduction 90 degrees Active Range of Motion (degrees) Shoulder Flexion 152 degrees Active Range of Motion (degrees) Query Text: Shoulder External 55 degrees Rotation Active Range of Motion ( degrees) Shoulder Internal 60 degrees Rotation Active Range of Motion ( degrees) Shoulder MMT Shoulder Abduction 4- Good- Strength Grade Shoulder Flexion 4- Good- Strength Grade Shoulder External 4- Good- Rotation Strength Grade Shoulder Internal 4- Good- Rotation Strength Grade Shoulder Strength Sitting Patient Testing Position Shoulder Special Tests impingement sign left present shoulder exam standard Shoulder Empty Can ( Positive Left Supraspinatus) Test Shoulder Downing- Positive Left Octavio Impingement Test Shoulder Neer Positive Left Impingement Test Shoulder [place] Positive Left Test Shoulder [place] Sign Negative Left Test Elbow Objective Measurements QuickDASH Activities Please rate your ability to do the following activities in the last week by selecting the number below the appropriate response. 1. Open a tight or Mild difficulty new jar. 2. 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 3. Carry a shopping No difficulty bag or briefcase. 4. Wash your back. Mild difficulty 5. Use a knife to Mild difficulty cut food. 6. Recreational Moderate difficulty activities in which you take some force or impact through your arm, shoulder, or hand (e.g., golf, hammering, tennis, etc.). 7. During the past Quite a bit week, to what extent has your arm, shoulder or hand problem interfered with your normal social activities with family, friends , neighbors or groups? 8. During the past Moderately limited week, were you limited in your work or other regular daily activites as a result of your arm, shoulder or hand problem? 9. Arm, shoulder or Moderate hand pain. 10. Tingling (pins None and needles) in your arm, shoulder or hand. 11. During the past No difficulty week, how much difficulty have you had sleeping because of the pain in your arm, shoulder or hand? Quick DASH 25 OT Patient Goals OT Patient Goals OT Short Term Short term goals: Patient Goals 1. Pt will increase left shoulder flexion to 160 degrees in order to complete daily overhead tasks independently ~50% of the time. 2. Pt will increase L shoulder abduction to 120 degrees to complete upper body dressing independently ~ 50% of the time. 3. Pt will increase L shoulder ER/IR to 65 degrees (ER ) and 65 degrees (IR) in order to complete lower body dressing (putting on and taking off belt) independently ~50% of the time. 4. Pt will increase strength to 4/5 throughout left shoulder in order to complete heavier household tasks ( laundry, mopping, vacuuming) independently ~50% of the time. 5. Pt will verbalize decreased pain levels at worst in L shoulder to a 5/10 in order to complete daily ADLs independently ~50% of the time. 6. Pt will demonstrate improved endurance by completing left shoulder exercises for ~20 minutes prior to rest break in order to increase his tolerance for daily work activities. 7. Pt will demonstrate independence with HEP of AAROM exercises to increase overall functional use of left shoulder in daily activities ~75% of the time. OT Fdc Patient 1. Pt will increase L shoulder flexion to 165 degrees Goals in order to complete daily overhead tasks independently ~75% of the time. 2. Pt will increase L shoulder abduction to 140 degrees to complete upper body dressing independently ~ 75% of the time. 3. Pt will increase L shoulder ER/IR to 80 degrees (ER ) and 70 degrees (IR)in order to complete lower body dressing (putting on and taking off belt) independently ~75% of the time. 4. Pt will increase strength to 4+/5 throughout left shoulder in order to complete heavier household tasks ( laundry, mopping, vacuuming) independently ~75% of the time. 5. Pt will verbalize decreased pain levels at worst in L shoulder to a 3/10 in order to complete daily ADLs independently ~75% of the time. 6. Pt will demonstrate improved endurance by completing L shoulder exercises for ~30 minutes prior to rest break in order to increase his tolerance for daily work activities. 7. Pt will demonstrate independence with HEP of Rotator cuff strengthening exercises to increase overall functional use of L shoulder for daily activities ~90% of the time. OT Outpatient Assessment Impairments Problems/Impairments Palpation Tenderness,Impaired Range of Motion,Impaired Strength,Impaired Endurance,Impaired Lifting,Impaired Dressing,Impaired Household Care,Impaired Recreational Activities,Impaired Work Activities,Subjective C/O Pain Prognosis Rehab Potential Good Clinical Impression Consistent with Yes Diagnosis Outpatient Therapy Plan of Care Treatment Plan May Include Therapeutic Exercise Yes Including Home Exercise Program Manual Therapy Yes Techniques Neuromuscular Re- Yes education Therapeutic Yes Activities to Return to Previous Functional/Work Level ADL/Self Care Yes Education Dry Needling Yes Thermal Modalities Yes Electrical Yes Stimulation Ultrasound/ Yes Phonophoresis Iontophoresis Yes Orthotics/Bracing/ Yes Splinting Massage Yes Eval/Re-Eval Yes Frequency Times per week 2 Duration Number of Weeks 6 Addendums This patient is a No candidate for social or vocational rehab ? Patient/Guardian Yes verbally acknowledges understanding of treatment program and consents to further treatment? Patient/Guardian Yes verbally acknowledges understanding of diagnosis, prognosis and goals for treatment? Eval Complexity OT Charge 25553 - Moderate Complexity PHYSICIAN CERTIFICATION: I certify the specified therapy services for Leon Young are required, authorized, and reviewed every 30 days.
== END 2025-01-02 23:59 | disposition home or self-care (01) ==
LOC: OT 15:00
PROVIDERS: Visit Provider Internal Medicine Adolescent Medicine
DX: S43.005D Unspecified dislocation of left shoulder joint, subsequent encounter (principal); W11.XXXD Fall on and from ladder, subsequent encounter
CPT/HCPCS: 97014; 97110; 97140; 97166; G0283